=== PATIENT | female | born 1945 | race Caucasian/White ===

== ENCOUNTER 2020-09-03 10:40 | Day surgery (SDC) | payer MEDICARE, OTHER ==
[2020-08-30 09:37] VITALS: BMI 35.5
[~2020-09-03 10:40] MED LIST: LACTATED RINGERS 1,000 ML IV SCH; SODIUM CHLORIDE 0.9% 1,000 ML IV SCH
[2020-09-03 11:53] LABS: Calcium 9.5 mg/dL (8.4-10.2); Potassium 3.9 mmol/L (3.5-5.1)
[2020-09-03] MEDS ORDERED: PROPOFOL 10 MG/ML 20 ML VIAL IV ONE (12:11)
--- NOTE | 2020-09-03 12:49 | CE ---
CARDIAC ELECTROPHYSIOLOGY REPORT DATE OF SERVICE: September 03, 2020 PERFORMING PHYSICIAN: Sylvester Contreras MD. PROCEDURE PERFORMED: Successful cardioversion of atrial fibrillation. INDICATION: Atrial fibrillation. COMPLICATION: None. LEVEL OF SEDATION: The procedure was performed using propofol with VISITOR SERVICES ASSOCIATE and anesthesiologist in the room. PROCEDURE DESCRIPTION: After obtaining an informed consent, the patient was brought to the recovery room. We did cardioversion of atrial fibrillation to normal sinus mechanism using 300 joule on second attempt. No complication reported. CONCLUSION: Successful cardioversion of atrial fibrillation to normal sinus mechanism using a 300 joules on second attempt. MMODL / IJN: [id number] /
[2020-09-03 12:51] VITALS: RESP 16; TEMP 97
[2020-09-03] MEDS ORDERED: FUROSEMIDE 20 MG TAB PO STA (13:13)
[2020-09-03] MEDS ORDERED: FUROSEMIDE 10 MG/ML 4 ML VIAL ONE (13:31)
[2020-09-03 14:30] VITALS: BP 158/70; PULSE 81
== END 2020-09-03 14:52 | disposition home or self-care (01) ==
LOC: CATHCVL 10:40
PROVIDERS: ATTEND Internal Medicine Interventional Cardiology
DX: I48.19 Other persistent atrial fibrillation (principal); I12.9 Hypertensive chronic kidney disease with stage 1 through stage 4 chronic kidney disease, or unspecified chronic kidney disease; N18.9 Chronic kidney disease, unspecified; J44.9 Chronic obstructive pulmonary disease, unspecified; E78.5 Hyperlipidemia, unspecified; E03.9 Hypothyroidism, unspecified; E66.9 Obesity, unspecified; R53.82 Chronic fatigue, unspecified; E07.9 Disorder of thyroid, unspecified; M19.90 Unspecified osteoarthritis, unspecified site; Z68.39 Body mass index [BMI] 39.0-39.9, adult; Z79.890 Hormone replacement therapy; Z79.899 Other long term (current) drug therapy; Z79.01 Long term (current) use of anticoagulants; Z88.0 Allergy status to penicillin; Z82.49 Family history of ischemic heart disease and other diseases of the circulatory system; Z90.710 Acquired absence of both cervix and uterus
CPT/HCPCS: 92960; 80048; J2704

== ENCOUNTER → 2020-10-19 | Day surgery (SDC) | payer MEDICARE, OTHER ==
[2020-10-18 08:30] VITALS: BMI 35.7
[~2020-10-19] MED LIST changes: -LACTATED RINGERS 1,000 ML IV SCH; +PROPOFOL 10 MG/ML 20 ML VIAL IV ONE; +hydrALAZINE HCL 20 MG/ML 1 ML VIAL ONE
[2020-10-19 07:24] VITALS: TEMP 98.1
[2020-10-19 08:10] LABS: Calcium 9.7 mg/dL (8.4-10.2)
--- NOTE | 2020-10-19 08:33 | CE ---
CARDIAC ELECTROPHYSIOLOGY REPORT DATE OF SERVICE: October 19, 2020. PROCEDURE PERFORMED: Successful cardioversion of atrial fibrillation to normal sinus mechanism using 200 joules on first attempt. INDICATION: Atrial fibrillation. COMPLICATION: None. SEDATION: The procedure was performed with propofol under general anesthesia. PROCEDURE DESCRIPTION: After obtaining an informed consent, the patient was brought to the recovery room. The sedation was induced using propofol with NUTRITION WORKER and anesthesiologist in the room. Subsequently, the patient was cardioverted from atrial fibrillation to normal sinus mechanism using 200 joules on first attempt. CONCLUSION: Successful cardioversion of atrial fibrillation to normal sinus mechanism using 200 joules on first attempt. MMODL / IJN: [id number] /
[2020-10-19 10:06] VITALS: PULSE 80; RESP 18
[2020-10-19 10:07] VITALS: BP 116/57
== END ==
LOC: CATHCVL 06:15
PROVIDERS: ATTEND Internal Medicine Interventional Cardiology
DX: I48.19 Other persistent atrial fibrillation (principal); I12.9 Hypertensive chronic kidney disease with stage 1 through stage 4 chronic kidney disease, or unspecified chronic kidney disease; N18.9 Chronic kidney disease, unspecified; Z20.822 Contact with and (suspected) exposure to COVID-19; Z72.0 Tobacco use; J44.9 Chronic obstructive pulmonary disease, unspecified; E78.5 Hyperlipidemia, unspecified; Z88.0 Allergy status to penicillin; Z79.01 Long term (current) use of anticoagulants; Z79.890 Hormone replacement therapy; Z79.899 Other long term (current) drug therapy
CPT/HCPCS: 92960; 80048; 87635; J0360; J2704; 93005

== ENCOUNTER 2022-08-30 21:07 | Inpatient (IN) | payer MEDICARE, OTHER ==
[2022-08-30] MEDS ORDERED: SODIUM CHLORIDE 0.9% 1,000 ML IV STA ×3 (21:17→23:37)
--- NOTE | 2022-08-30 21:22 | ED ---
General Adult HPI - General Chief complaint: Fever Stated complaint: Difficulty Breathing Time Seen by Provider: 08/30/22 21:16 Source: EMS Mode of arrival: EMS Limitations: altered mental status - History of Present Illness Initial comments: Dictation was produced using Find[employer] dictation software. please excuse any grammatical, word or spelling errors. Chief Complaint: 77-year-old female brought in from [facility] for medication noncompliance History of Present Illness: She 77-year-old female she has multiple comorbidit ies. According to EMS provides history of present illness patient has not been compliant with her C. diff medications for the last 3 weeks. Decision was made by [facility] sent patient to the emergency department. Patient is a poor historian. EMS reports that patient was hypoxic. Patient states that she has pain all over. Patient was allegedly just discharged from the hospital recently for C. diff infection. Unable to obtain ROS secondary to patient's mental status PHYSICAL EXAM: General Impression: Alert and oriented, malaised HEENT: Normocephalic atraumatic, extra-ocular movements intact, pupils equal and reactive to light bilaterally, dry mucous membranes Cardiovascular: Heart regular rate and rhythm Chest: Able to complete full sentences, no retractions, no tachypnea Abdomen: abdomen soft, non-tender, non-distended, no organomegaly Musculoskeletal: Pulses present and equal in all extremities, no peripheral edema, lymphedema to bilateral lower extremities Motor: no focal deficits noted Neurological: CN II-XII grossly intact, no focal motor or sensory deficits noted Skin: Intact with no visualized rashes ED course: 77-year-old female presents emergency department for C. diff medication noncompliance. EMS states that patient was hypoxic prehospital vitals besides the oxygenation however was unremarkable. Patient was placed in trauma bay #1. She had poor waveform on her oxygenation levels with fingertip oximetry. We were able to get a good waveform with normal oxygenation. Blood pressure on arrival was 108/63. Patient does show evidence of atrial fi brillation rapid ventricular rate. She does appear to be dry at the bedside. Nursing notes and chart review was performed EKG interpreted by me: Ventricular rate 123, H fibrillation with RVR, QRS 190, QTC 411. No IN prolongation, no QTC prolongation, no ST or T-wave changes noted. EKG compared to 07/19/2022 showing no changes. Overall, this EKG is unremarkable Was pt. sent in by a medical professional or institution (LEONOR Lott, AIRCRAFT MACHINIST HELPER, urgent care, hospital, or intermediate...) When possible be specific @ -[facility] Did you speak to anyone other than the patient for history (EMS, parent, family, police, friend...)? What history was obtained from this source @ -No Did you review nursing and triage notes (agree or disagree)? Why? @ -I reviewed and agree with nursing and triage notes Were old charts reviewed (outside hosp., previous admission, EMS record, old EKG, old radiological studies, urgent care reports/EKG's, intermediate records)? Report findings @ -Prior discharge summary was reviewed. Prior echocardiogram was reviewed showing 40-45% ejection fraction Differential Diagnosis (chest pain, altered mental status, abdominal pain women, abdominal pain men, vaginal bleeding, musculoskeletal, weakness, fever, dyspnea, syncope, headache, dizziness, GI bleed, back pain, seizure, CVA, palpatations, mental health)? @ -not applicable EKG interpreted by me (3pts min.). @ -As above X-rays interpreted by me (1pt min.). @ -Left infiltrate CT interpreted by me (1pt min.). @ -None done U/S interpreted by me (1pt. min.). @ -None done What testing was considered but not performed or refused? (CT, X-rays, U/S, labs)? Why? @ -None What meds were considered but not given or refused? Why? @ -None Did you discuss the management of the patient with other professionals (professionals i.e. LEONOR Lott, AIRCRAFT MACHINIST HELPER, lab, RT, psych nurse, health social work professor, metallurgical engineering teacher, teacher, biological technical officer, nurse case manager)? Give summary @ -Case discussed with [facility] admission hospitalist group for admission Was smoking cessation discussed for >3mins.? @ -No Was critical care preformed (if so, how long)? @ -Yes, 77 minutes Were there social determinants of health that impacted care today? How? (Homelessness, low income, unemployed, alcoholism, drug addiction, transportation, low edu. Level, literacy, decrease access to med. care, custodial, rehab)? @ -No Was there de-escalation of care discussed even if they declined (Discuss DNR or withdrawal of care, Hospice)? DNR status @ -No What co-morbidities impacted this encounter? (DM, HTN, Smoking, COPD, CAD, Cancer, CVA, ARF, Chemo, Hep., AIDS, mental health diagnosis, sleep apnea, morbid obesity)? @ -None Was patient admitted / discharged? Hospital course, mention meds given and rout e, prescriptions, significant lab abnormalities, going to OR and other pertinent info. @ -77-year-old female presents with chief complaint of noncompliance with C. diff medications. Report from prehospital providers was that patient was hypoxic. Patient is not hypoxic. When patient's put on a good waveform her oxygenation. HEENT normal. Patient does not appear to be significantly dyspneic. BiPAP was placed for respiratory assistance. Her presentation concerning for obesity hypoventilation syndrome. Pressures are decreased however she did respond to fluids. Patient given 30 mL per KG bolus per ideal body weight. Laboratory evaluation obtained. Leukocytosis 6 and 0.0. Suspicious for sepsis. Arterial blood gases not support hypoxia. Metabolic panel is unremarkable. Urinalysis is negative. 4 panel viral PCR is negative. Patient monitored in the emergency department for several hours. Patient condition did not deteriorate. She did slightly improve. No clear indication for treatment of A. fib RVR at this time given that patient's heart rate seemed to normalize without any intervention down to the lower 90s-110s. Patient reevaluated bedside and blood pressures did not really improve. Plan was made to insert a central venous catheter. Started on pressors. Patient noted to have some runs of ventricular tachycardia. Case discussed with intensi vist is willing to take patient's care to the ICU. Undiagnosed new problem with uncertain prognosis? @ -No Drug Therapy requiring intensive monitoring for toxicity (Heparin, Nitro, Insulin, Cardizem)? @ -Cardizem. Were any procedures done? @ -yes Diagnosis/symptom? Acute, or Chronic, or Acute on Chronic? Uncomplicated (without systemic symptoms) or Complicated (systemic symptoms)? @ -1. Community acquired pneumonia, 2. Sepsis Side effects of treatment? @ -No Exacerbation, Progression, or Severe Exacerbation? @ -No Poses a threat to life or bodily function? How? (Chest pain, [place], [place], pneumonia, PE, COPD, DKA, ARF, appy, cholecystitis, CVA, Diverticulitis, Homicidal, Suicidal, threat to staff... and all critical care pts) @ -yes - Related Data Home Medications Medication Instructions Recorded Confirmed Acetaminophen [Tylenol Arthritis] 650 mg PO Q4H PRN 08/30/20 08/30/22 Apixaban [Eliquis] 5 mg PO BID@0900,2100 08/30/20 08/30/22 Ipratropium/Albuterol Sulfate 1 puff INHALATION RT-Q6H 08/30/20 08/30/22 [Combivent Respimat Inhaler] Multivitamins, Thera [Multivitamin 1 tab PO DAILY@0900 08/30/20 08/30/22 (formulary)] rOPINIRole HCL [Requip] 2 mg PO TID@0600,1400,2200 08/30/20 08/30/22 Baclofen 10 mg PO TID@0600,1400,2200 07/19/22 08/30/22 Calcium Carb-Vit D 500Mg-5Mcg 1 tab PO HS@209907/19/22 08/30/22 [Oscal 500+D 5 Mcg (200 Iu)] Cholestyramine (with Sugar) 4 gm PO HS@209907/19/22 08/30/22 [Questran Packet] Dapagliflozin Propanediol [Farxiga] 5 mg PO DAILY@0600 07/19/22 08/30/22 Diltiazem Cd [Cardizem CD] 240 mg PO DAILY@0900 07/19/22 08/30/22 Epoetin Arvin-Epbx [Retacrit] 10,000 units SQ MOWEFR 07/19/22 08/30/22 Ferrous Sulfate [Iron (65 MG 325 mg PO HS@209907/19/22 08/30/22 Elemental)] Fluticasone Propion/Salmeterol 1 puff INHALATION RT-BID@0600,1800 07/19/22 08/30/22 [Wixela 250-50 Inhub] Levothyroxine Sodium [Synthroid] 112 mcg PO DAILY@0600 07/19/22 08/30/22 Loperamide [Imodium] 2 mg PO Q6H PRN 07/19/22 08/30/22 Ondansetron [Zofran] 4 mg PO Q6H PRN 07/19/22 08/30/22 Potassium Chloride ER [K-Dur 10] 10 meq PO DAILY@0900 07/19/22 08/30/22 calcitrioL [Calcitriol] 0.25 mcg PO DAILY@0600 07/19/22 08/30/22 Glucerna Shake 1 can PO BID@0900,1700 08/30/22 08/30/22 Lactobacillus Acidophilus 1 cap PO BID@0600,2100 08/30/22 08/30/22 [Acidophilus] Levothyroxine Sodium [Synthroid] 50 mcg PO DAILY@0600 08/30/22 08/30/22 Metoprolol Tartrate [Lopressor] 25 mg PO TID@0600,1400,2200 08/30/22 08/30/22 Midodrine HCl [ProAmatine] 10 mg PO TID@0600,1400,2200 08/30/22 08/30/22 Previous Rx's Medication Instructions Recorded HYDROcodone/APAP 5-325MG [[place]lett 1 tab PO Q8H PRN 3 Days #4 tab 08/05/22 5-325] Ipratropium-Albuterol Nebulize 3 ml INHALATION RT-QID each 08/05/22 [Duoneb 0.5 mg-3 mg/3 ml Soln] Lidocaine Viscous 2% [Xylocaine 30 ml PO QID PRN ml 08/05/22 Viscous] Allergies Allergy/AdvReac Type Severity Reaction Status Date / Time Penicillins Allergy Rash/Hives Verified 08/30/22 21:32 Review of Systems ROS Statement: Those systems with pertinent positive or pertinent negative responses have been documented in the HPI. ROS Other: All systems not noted in ROS Statement are negative. Past Medical History Past Medical History: Atrial Fibrillation, COPD, Hypertension, Osteoarthritis (OA), Thyroid Disorder Additional Past Medical History / Comment(s): BLE EDEMA. SOB. RLS History of Any Multi-Drug Resistant Organisms: None Reported Past Surgical History: Appendectomy, Cholecystectomy, Heart Catheterization, Hysterectomy, Tonsillectomy Additional Past Surgical History / Comment(s): BILAT CATARACTS REMOVED WITH LENS IMPLANTS. COLONOSCOPY. THYROIDECTOMY. CARDIOVERSION-09/03/20 Past Anesthesia/Blood Transfusion Reactions: No Reported Reaction Past Psychological History: No Psychological Hx Reported Smoking Status: Former smoker Past Alcohol Use History: None Reported Past Drug Use History: None Reported - Past Family History Sister(s) Family Medical History: Cancer Additional Family Medical History / Comment(s): BLADDER General Exam Limitations: altered mental status Course Vital Signs 08/30/22 08/30/22 08/30/22 21:08 21:15 21:18 Temperature 100.5 F H Pulse Rate 70 Pulse Rate [ 70 Apical] Respiratory 22 Rate Blood Pressure 103/89 O2 Sat by Pulse 100 Oximetry Fraction of 35 Inspired Oxygen (FIO2) 08/30/22 08/30/22 08/30/22 21:21 21:54 22:46 Temperature 98.4 F Pulse Rate 140 H 120 H Pulse Rate [ Apical] Respiratory 18 16 Rate Blood Pressure 73/60 80/47 O2 Sat by Pulse 97 99 Oximetry Fraction of 35 Inspired Oxygen (FIO2) 08/30/22 08/30/22 08/31/22 23:00 23:33 00:45 Temperature Pulse Rate 120 H 120 H Pulse Rate [ Apical] Respiratory 18 16 Rate Blood Pressure 100/40 80/60 O2 Sat by Pulse 97 97 Oximetry Fraction of 35 Inspired Oxygen (FIO2) Procedures - Sepsis Sepsis Focused Exam #1 Time Sepsis Criteria Met: 23:38 Sepsis Focused Exam Date: 08/30/22 Sepsis Focused Exam Time: 23:38 Sepsis Focused Exam Complete: Yes Vital Signs & RN Notes Reviewed: Yes Capillary Refill: < 2 Seconds: Fingers, Toes Peripheral Pulses: Normal: Radial (R), Radial (L), Posterior Tibialis (R), Posterior Tibialis (L), Dorsalis Pedis (R), Dorsalis Pedis (L) Skin Color: Normal for Patient Respiratory Exam: normal lung sounds Cardiovascular Exam: regular rate, tachycardia Medical Decision Making - Lab Data Result diagrams: 08/30/22 21:18 08/30/22 21:17 Lab Results 08/30/22 08/30/22 08/30/22 Range/Units 21:17 21:18 21:18 WBC 16.0 H (3.8-10.6) k/uL RBC 5.01 (3.80-5.40) m/uL Hgb 15.5 D (11.4-16.0) gm/dL Hct 47.9 H (34.0-46.0) % MCV 95.5 (80.0-100.0) fL MCH 30.9 (25.0-35.0) pg MCHC 32.3 (31.0-37.0) g/dL RDW 15.6 H (11.5-15.5) % Plt Count 316 (150-450) k/uL MPV 8.4 Neutrophils % 91 % Lymphocytes % 6 % Monocytes % 2 % Eosinophils % 0 % Basophils % 1 % Neutrophils # 14.5 H (1.3-7.7) k/uL Lymphocytes # 1.0 (1.0-4.8) k/uL Monocytes # 0.3 (0-1.0) k/uL Eosinophils # 0.1 (0-0.7) k/uL Basophils # 0.1 (0-0.2) k/uL Hypochromasia Slight Poikilocytosis Slight PT 12.8 H (9.0-12.0) sec INR 1.3 H (<1.2) APTT 27.0 (22.0-30.0) sec Sample Site ABG pH (7.35-7.45) ABG pCO2 (35-45) mmHg ABG pO2 (83-108) mmHg ABG HCO3 (21-25) mmol/L ABG Total CO2 (19-24) mmol/L ABG O2 Saturation (94-97) % ABG Base Excess mmol/L Viany Test FiO2 % Sodium 135 L (137-145) mmol/L Potassium 3.8 (3.5-5.1) mmol/L Chloride 103 (98-107) mmol/L Carbon Dioxide 25 (22-30) mmol/L Anion Gap 7 mmol/L BUN 15 (7-17) mg/dL Creatinine 0.86 (0.52-1.04) mg/dL Est GFR (CKD-EPI)AfAm 77 (>60 ml/min/1.73 sqM) Est GFR (CKD-EPI)NonAf 67 (>60 ml/min/1.73 sqM) Glucose 75 (74-99) mg/dL Plasma Lactic Acid Denzel (0.7-2.0) mmol/L Calcium 7.6 L (8.4-10.2) mg/dL Ionized Calcium Tim 4.5 (4.5-5.3) mg/dL Magnesium 2.2 (1.6-2.3) mg/dL Total Bilirubin 1.0 (0.2-1.3) mg/dL AST 42 H (14-36) U/L ALT 22 (4-34) U/L Alkaline Phosphatase 228 H (38-126) U/L Troponin I (0.000-0.034) ng/mL Total Protein 5.6 L (6.3-8.2) g/dL Albumin 2.5 L (3.5-5.0) g/dL TSH 5.590 H (0.465-4.680) mIU/L Urine Color Urine Appearance (Clear) Urine pH (5.0-8.0) Ur Specific [place] (1.001-1.035) Urine Protein (Negative) Urine Glucose (UA) (Negative) Urine Ketones (Negative) Urine Blood (Negative) Urine Nitrite (Negative) Urine Bilirubin (Negative) Urine Urobilinogen (<2.0) mg/dL Ur Leukocyte Esterase (Negative) Urine RBC (0-5) /hpf Urine WBC (0-5) /hpf Urine Bacteria (None) /hpf Hyaline Casts (0-2) /lpf Urine Mucus (None) /hpf Influenza Type A (PCR) (Not Detectd) Influenza Type B (PCR) (Not Detectd) RSV (PCR) (Not Detectd) SARS-CoV-2 (PCR) (Not Detectd) Blood Type Blood Type Recheck Bld Type Recheck Status Antibody Screen Spec Expiration Date 08/30/22 08/30/22 08/30/22 Range/Units 21:18 21:18 21:18 WBC (3.8-10.6) k/uL RBC (3.80-5.40) m/uL Hgb (11.4-16.0) gm/dL Hct (34.0-46.0) % MCV (80.0-100.0) fL MCH (25.0-35.0) pg MCHC (31.0-37.0) g/dL RDW (11.5-15.5) % Plt Count (150-450) k/uL MPV Neutrophils % % Lymphocytes % % Monocytes % % Eosinophils % % Basophils % % Neutrophils # (1.3-7.7) k/uL Lymphocytes # (1.0-4.8) k/uL Monocytes # (0-1.0) k/uL Eosinophils # (0-0.7) k/uL Basophils # (0-0.2) k/uL Hypochromasia Poikilocytosis PT (9.0-12.0) sec INR (<1.2) APTT (22.0-30.0) sec Sample Site ABG pH (7.35-7.45) ABG pCO2 (35-45) mmHg ABG pO2 (83-108) mmHg ABG HCO3 (21-25) mmol/L ABG Total CO2 (19-24) mmol/L ABG O2 Saturation (94-97) % ABG Base Excess mmol/L Vinay Test FiO2 % Sodium (137-145) mmol/L Potassium (3.5-5.1) mmol/L Chloride (98-107) mmol/L Carbon Dioxide (22-30) mmol/L Anion Gap mmol/L BUN (7-17) mg/dL Creatinine (0.52-1.04) mg/dL Est GFR (CKD-EPI)AfAm (>60 ml/min/1.73 sqM) Est GFR (CKD-EPI)NonAf (>60 ml/min/1.73 sqM) Glucose (74-99) mg/dL Plasma Lactic Acid Denzel 1.8 (0.7-2.0) mmol/L Calcium (8.4-10.2) mg/dL Ionized Calcium Tim (4.5-5.3) mg/dL Magnesium (1.6-2.3) mg/dL Total Bilirubin (0.2-1.3) mg/dL AST (14-36) U/L ALT (4-34) U/L Alkaline Phosphatase (38-126) U/L Troponin I <0.012 (0.000-0.034) ng/mL Total Protein (6.3-8.2) g/dL Albumin (3.5-5.0) g/dL TSH (0.465-4.680) mIU/L Urine Color Urine Appearance (Clear) Urine pH (5.0-8.0) Ur Specific [place] (1.001-1.035) Urine Protein (Negative) Urine Glucose (UA) (Negative) Urine Ketones (Negative) Urine Blood (Negative) Urine Nitrite (Negative) Urine Bilirubin (Negative) Urine Urobilinogen (<2.0) mg/dL Ur Leukocyte Esterase (Negative) Urine RBC (0-5) /hpf Urine WBC (0-5) /hpf Urine Bacteria (None) /hpf Hyaline Casts (0-2) /lpf Urine Mucus (None) /hpf Influenza Type A (PCR) Not Detected (Not Detectd) Influenza Type B (PCR) Not Detected (Not Detectd) RSV (PCR) Not Detected (Not Detectd) SARS-CoV-2 (PCR) Not Detected (Not Detectd) Blood Type Blood Type Recheck Bld Type Recheck Status Antibody Screen Spec Expiration Date 08/30/22 08/30/22 08/30/22 Range/Units 21:18 21:18 22:05 WBC (3.8-10.6) k/uL RBC (3.80-5.40) m/uL Hgb (11.4-16.0) gm/dL Hct (34.0-46.0) % MCV (80.0-100.0) fL MCH (25.0-35.0) pg MCHC (31.0-37.0) g/dL RDW (11.5-15.5) % Plt Count (150-450) k/uL MPV Neutrophils % % Lymphocytes % % Monocytes % % Eosinophils % % Basophils % % Neutrophils # (1.3-7.7) k/uL Lymphocytes # (1.0-4.8) k/uL Monocytes # (0-1.0) k/uL Eosinophils # (0-0.7) k/uL Basophils # (0-0.2) k/uL Hypochromasia Poikilocytosis PT (9.0-12.0) sec INR (<1.2) APTT (22.0-30.0) sec Sample Site [place] ABG pH 7.49 H (7.35-7.45) ABG pCO2 29 L (35-45) mmHg ABG pO2 119 H (83-108) mmHg ABG HCO3 22 (21-25) mmol/L ABG Total CO2 23 (19-24) mmol/L ABG O2 Saturation 99.3 H (94-97) % ABG Base Excess -1.0 mmol/L Vinay Test Yes FiO2 35 % Sodium (137-145) mmol/L Potassium (3.5-5.1) mmol/L Chloride (98-107) mmol/L Carbon Dioxide (22-30) mmol/L Anion Gap mmol/L BUN (7-17) mg/dL Creatinine (0.52-1.04) mg/dL Est GFR (CKD-EPI)AfAm (>60 ml/min/1.73 sqM) Est GFR (CKD-EPI)NonAf (>60 ml/min/1.73 sqM) Glucose (74-99) mg/dL Plasma Lactic Acid Denzel (0.7-2.0) mmol/L Calcium (8.4-10.2) mg/dL Ionized Calcium Tim (4.5-5.3) mg/dL Magnesium (1.6-2.3) mg/dL Total Bilirubin (0.2-1.3) mg/dL AST (14-36) U/L ALT (4-34) U/L Alkaline Phosphatase (38-126) U/L Troponin I (0.000-0.034) ng/mL Total Protein (6.3-8.2) g/dL Albumin (3.5-5.0) g/dL TSH (0.465-4.680) mIU/L Urine Color Yellow Urine Appearance Clear (Clear) Urine pH 5.5 (5.0-8.0) Ur Specific [place] 1.019 (1.001-1.035) Urine Protein 1+ H (Negative) Urine Glucose (UA) 1+ H (Negative) Urine Ketones Negative (Negative) Urine Blood Trace H (Negative) Urine Nitrite Negative (Negative) Urine Bilirubin Negative (Negative) Urine Urobilinogen <2.0 (<2.0) mg/dL Ur Leukocyte Esterase Negative (Negative) Urine RBC 4 (0-5) /hpf Urine WBC <1 (0-5) /hpf Urine Bacteria Rare H (None) /hpf Hyaline Casts 3 H (0-2) /lpf Urine Mucus Rare H (None) /hpf Influenza Type A (PCR) (Not Detectd) Influenza Type B (PCR) (Not Detectd) RSV (PCR) (Not Detectd) SARS-CoV-2 (PCR) (Not Detectd) Blood Type A Positive Blood Type Recheck No Previous Record Bld Type Recheck Status CABO Indicated Antibody Screen NEGATIVE Spec Expiration Date 09/02/20222317 Disposition Clinical Impression: Sepsis Disposition: ADMITTED IP TO THIS HOSP Condition: Critical Referrals: Carlos Lobato MD [Primary Care Provider] - 1-2 days Decision Time: 00:26
[2022-08-30] MEDS ORDERED: ACETAMINOPHEN IV (For NPO) 1,000 MG in EMPTY BAG 1 BAG IVPB ONE (21:45)
--- NOTE | 2022-08-30 21:59 | XR ---
EXAMINATION TYPE: XR chest 1V portable DATE OF EXAM: 08/30/2022 COMPARISON: 08/01/2022 HISTORY: Short of breath TECHNIQUE: FINDINGS: There is some blunting of the left costophrenic angle. Right lung is clear. No heart failur e. Heart appears slightly enlarged. There is increased density left lower lobe. IMPRESSION: There is left pleural effusion and left lower lobe infiltrate which is increased compared to old exam. No heart failure
[2022-08-30 22:13] LABS: Allen Test Performed? Yes
[2022-08-30] MEDS ORDERED: CEFEPIME 2 GM in SODIUM CHLORIDE 0.9% 100 ML IVPB STA (22:13)
[2022-08-30] MEDS ORDERED: VANCOMYCIN IV PER PHARMACY 1 EACH MISC MISCELLANE PRN (22:14)
[2022-08-30] MEDS ORDERED: CEFEPIME 2 GM in SODIUM CHLORIDE 0.9% 100 ML IVPB ONE (22:20)
[2022-08-30 22:22] LABS: ABG HCO3 22 mmol/L (21-25); ABG Oxygen Saturation 99.3 % (94-97); ABG PCO2 29 mmHg (35-45); ABG PH 7.49 (7.35-7.45); ABG PO2 119 mmHg (83-108); ABG TCO2 23 mmol/L (19-24)
[2022-08-30 22:42] LABS: Appearance,Urine Clear (Clear); Bacteria,Urine Rare /hpf; Bilirubin,Urine Negative (Negative); Blood,Urine Trace (Negative); Color,Urine Yellow; Glucose,Urine (UA) 1+ (Negative); Hyaline Casts,Urine 3 /lpf (0-2); Ketones,Urine Negative (Negative); Leukocyte Esterase,Urine Negative (Negative); Mucus,Urine Rare /hpf; Nitrite,Urine Negative (Negative); PH, Urine 5.5 (5.0-8.0); Protein,Urine 1+ (Negative); RBC,Urine 4 /hpf (0-5); Specific Gravity,Urine 1.019 (1.001-1.035); Urobilinogen,Urine <2.0 mg/dL (<2.0); WBC,Urine <1 /hpf (0-5)
[2022-08-30 22:43] LABS: INR 1.3 (<1.2); Prothrombin Time 12.8 sec (9.0-12.0)
[2022-08-30 22:43] LABS: Albumin 2.5 g/dL (3.5-5.0); Calcium 7.6 mg/dL (8.4-10.2); Magnesium 2.2 mg/dL (1.6-2.3); Potassium 3.8 mmol/L (3.5-5.1); Total Protein 5.6 g/dL (6.3-8.2)
[2022-08-30 23:11] LABS: Ionized Calcium 4.5 mg/dL (4.5-5.3)
[2022-08-30 23:12] LABS: Basophils # (A) 0.1 k/uL (0-0.2); Basophils % (A) 1 %; Eosinophils # (A) 0.1 k/uL (0-0.7); Eosinophils % (A) 0 %; HCT 47.9 % (34.0-46.0); HGB 15.5 gm/dL (11.4-16.0); Hypochromasia Slight; Lymphocytes % (A) 6 %; MCH 30.9 pg (25.0-35.0); MCHC 32.3 g/dL (31.0-37.0); MCV 95.5 fL (80.0-100.0); Mean Platelet Volume 8.4; Monocytes # (A) 0.3 k/uL (0-1.0); Monocytes % (A) 2 %; Neutrophils # (A) 14.5 k/uL (1.3-7.7); Neutrophils % (A) 91 %; Platelet Count 316 k/uL (150-450); Poikilocytosis Slight; RBC 5.01 m/uL (3.80-5.40); RDW 15.6 % (11.5-15.5)
[2022-08-30] MEDS ORDERED: DILTIAZEM 125 MG in SODIUM CHLORIDE 0.9% 100 ML IV SCH (23:45)
[2022-08-31] MEDS ORDERED: VANCOMYCIN 2,000 MG in SODIUM CHLORIDE 0.9% 500 ML 500 ML IVPB ONE ×2
[2022-08-31] MEDS ORDERED: CALCIUM GLUCONATE IN NACL 1 GM in SALINE 1 100ML.BAG IVPB ONE (00:04)
[2022-08-31] MEDS ORDERED: NOREPINEPHRINE 32 MG in SODIUM CHLORIDE 0.9% 218 ML IV ONE (00:48)
[2022-08-31] MEDS ORDERED: NALOXONE 0.4 MG/ML 1 ML VIAL IV PRN (00:52)
[2022-08-31] MEDS ORDERED: DEXTROSE 5% IN WATER 100 ML with AMIODARONE 150 MG IV ONE (01:00)
--- NOTE | 2022-08-31 01:00 | XR ---
EXAMINATION TYPE: XR chest 1V portable DATE OF EXAM: 08/31/2022 COMPARISON: 08/30/2022 HISTORY: Central line placement TECHNIQUE: FINDINGS: There is right subclavian catheter with tip in the right atrium. There is infiltrate and pl eural fluid left lung base. No obvious heart failure. Thoracic aorta is atheromatous. Heart is slight ly enlarged. IMPRESSION: Catheter is in the right atrium. There is pleural fluid and infiltrate in the left lower lobe without much change.
--- NOTE | 2022-08-31 01:01 | ED ---
Medical Decision Making - Lab Data Result diagrams: 08/30/22 21:18 08/30/22 21:17 Lab Results 08/30/22 08/30/22 08/30/22 Range/Units 21:17 21:18 21:18 WBC 16.0 H (3.8-10.6) k/uL RBC 5.01 (3.80-5.40) m/uL Hgb 15.5 D (11.4-16.0) gm/dL Hct 47.9 H (34.0-46.0) % MCV 95.5 (80.0-100.0) fL MCH 30.9 (25.0-35.0) pg MCHC 32.3 (31.0-37.0) g/dL RDW 15.6 H (11.5-15.5) % Plt Count 316 (150-450) k/uL MPV 8.4 Neutrophils % 91 % Lymphocytes % 6 % Monocytes % 2 % Eosinophils % 0 % Basophils % 1 % Neutrophils # 14.5 H (1.3-7.7) k/uL Lymphocytes # 1.0 (1.0-4.8) k/uL Monocytes # 0.3 (0-1.0) k/uL Eosinophils # 0.1 (0-0.7) k/uL Basophils # 0.1 (0-0.2) k/uL Hypochromasia Slight Poikilocytosis Slight PT 12.8 H (9.0-12.0) sec INR 1.3 H (<1.2) APTT 27.0 (22.0-30.0) sec Sample Site ABG pH (7.35-7.45) ABG pCO2 (35-45) mmHg ABG pO2 (83-108) mmHg ABG HCO3 (21-25) mmol/L ABG Total CO2 (19-24) mmol/L ABG O2 Saturation (94-97) % ABG Base Excess mmol/L Vinay Test FiO2 % Sodium 135 L (137-145) mmol/L Potassium 3.8 (3.5-5.1) mmol/L Chloride 103 (98-107) mmol/L Carbon Dioxide 25 (22-30) mmol/L Anion Gap 7 mmol/L BUN 15 (7-17) mg/dL Creatinine 0.86 (0.52-1.04) mg/dL Est GFR (CKD-EPI)AfAm 77 (>60 ml/min/1.73 sqM) Est GFR (CKD-EPI)NonAf 67 (>60 ml/min/1.73 sqM) Glucose 75 (74-99) mg/dL Plasma Lactic Acid Denzel (0.7-2.0) mmol/L Calcium 7.6 L (8.4-10.2) mg/dL Ionized Calcium Tim 4.5 (4.5-5.3) mg/dL Magnesium 2.2 (1.6-2.3) mg/dL Total Bilirubin 1.0 (0.2-1.3) mg/dL AST 42 H (14-36) U/L ALT 22 (4-34) U/L Alkaline Phosphatase 228 H (38-126) U/L Troponin I (0.000-0.034) ng/mL Total Protein 5.6 L (6.3-8.2) g/dL Albumin 2.5 L (3.5-5.0) g/dL TSH 5.590 H (0.465-4.680) mIU/L Urine Color Urine Appearance (Clear) Urine pH (5.0-8.0) Ur Specific [place] (1.001-1.035) Urine Protein (Negative) Urine Glucose (UA) (Negative) Urine Ketones (Negative) Urine Blood (Negative) Urine Nitrite (Negative) Urine Bilirubin (Negative) Urine Urobilinogen (<2.0) mg/dL Ur Leukocyte Esterase (Negative) Urine RBC (0-5) /hpf Urine WBC (0-5) /hpf Urine Bacteria (None) /hpf Hyaline Casts (0-2) /lpf Urine Mucus (None) /hpf Influenza Type A (PCR) (Not Detectd) Influenza Type B (PCR) (Not Detectd) RSV (PCR) (Not Detectd) SARS-CoV-2 (PCR) (Not Detectd) Blood Type Blood Type Recheck Bld Type Recheck Status Antibody Screen Spec Expiration Date 08/30/22 08/30/22 08/30/22 Range/Units 21:18 21:18 21:18 WBC (3.8-10.6) k/uL RBC (3.80-5.40) m/uL Hgb (11.4-16.0) gm/dL Hct (34.0-46.0) % MCV (80.0-100.0) fL MCH (25.0-35.0) pg MCHC (31.0-37.0) g/dL RDW (11.5-15.5) % Plt Count (150-450) k/uL MPV Neutrophils % % Lymphocytes % % Monocytes % % Eosinophils % % Basophils % % Neutrophils # (1.3-7.7) k/uL Lymphocytes # (1.0-4.8) k/uL Monocytes # (0-1.0) k/uL Eosinophils # (0-0.7) k/uL Basophils # (0-0.2) k/uL Hypochromasia Poikilocytosis PT (9.0-12.0) sec INR (<1.2) APTT (22.0-30.0) sec Sample Site ABG pH (7.35-7.45) ABG pCO2 (35-45) mmHg ABG pO2 (83-108) mmHg ABG HCO3 (21-25) mmol/L ABG Total CO2 (19-24) mmol/L ABG O2 Saturation (94-97) % ABG Base Excess mmol/L Vinay Test FiO2 % Sodium (137-145) mmol/L Potassium (3.5-5.1) mmol/L Chloride (98-107) mmol/L Carbon Dioxide (22-30) mmol/L Anion Gap mmol/L BUN (7-17) mg/dL Creatinine (0.52-1.04) mg/dL Est GFR (CKD-EPI)AfAm (>60 ml/min/1.73 sqM) Est GFR (CKD-EPI)NonAf (>60 ml/min/1.73 sqM) Glucose (74-99) mg/dL Plasma Lactic Acid Denzel 1.8 (0.7-2.0) mmol/L Calcium (8.4-10.2) mg/dL Ionized Calcium Tim (4.5-5.3) mg/dL Magnesium (1.6-2.3) mg/dL Total Bilirubin (0.2-1.3) mg/dL AST (14-36) U/L ALT (4-34) U/L Alkaline Phosphatase (38-126) U/L Troponin I <0.012 (0.000-0.034) ng/mL Total Protein (6.3-8.2) g/dL Albumin (3.5-5.0) g/dL TSH (0.465-4.680) mIU/L Urine Color Urine Appearance (Clear) Urine pH (5.0-8.0) Ur Specific [place] (1.001-1.035) Urine Protein (Negative) Urine Glucose (UA) (Negative) Urine Ketones (Negative) Urine Blood (Negative) Urine Nitrite (Negative) Urine Bilirubin (Negative) Urine Urobilinogen (<2.0) mg/dL Ur Leukocyte Esterase (Negative) Urine RBC (0-5) /hpf Urine WBC (0-5) /hpf Urine Bacteria (None) /hpf Hyaline Casts (0-2) /lpf Urine Mucus (None) /hpf Influenza Type A (PCR) Not Detected (Not Detectd) Influenza Type B (PCR) Not Detected (Not Detectd) RSV (PCR) Not Detected (Not Detectd) SARS-CoV-2 (PCR) Not Detected (Not Detectd) Blood Type Blood Type Recheck Bld Type Recheck Status Antibody Screen Spec Expiration Date 08/30/22 08/30/22 08/30/22 Range/Units 21:18 21:18 22:05 WBC (3.8-10.6) k/uL RBC (3.80-5.40) m/uL Hgb (11.4-16.0) gm/dL Hct (34.0-46.0) % MCV (80.0-100.0) fL MCH (25.0-35.0) pg MCHC (31.0-37.0) g/dL RDW (11.5-15.5) % Plt Count (150-450) k/uL MPV Neutrophils % % Lymphocytes % % Monocytes % % Eosinophils % % Basophils % % Neutrophils # (1.3-7.7) k/uL Lymphocytes # (1.0-4.8) k/uL Monocytes # (0-1.0) k/uL Eosinophils # (0-0.7) k/uL Basophils # (0-0.2) k/uL Hypochromasia Poikilocytosis PT (9.0-12.0) sec INR (<1.2) APTT (22.0-30.0) sec Sample Site [place] ABG pH 7.49 H (7.35-7.45) ABG pCO2 29 L (35-45) mmHg ABG pO2 119 H (83-108) mmHg ABG HCO3 22 (21-25) mmol/L ABG Total CO2 23 (19-24) mmol/L ABG O2 Saturation 99.3 H (94-97) % ABG Base Excess -1.0 mmol/L Vinay Test Yes FiO2 35 % Sodium (137-145) mmol/L Potassium (3.5-5.1) mmol/L Chloride (98-107) mmol/L Carbon Dioxide (22-30) mmol/L Anion Gap mmol/L BUN (7-17) mg/dL Creatinine (0.52-1.04) mg/dL Est GFR (CKD-EPI)AfAm (>60 ml/min/1.73 sqM) Est GFR (CKD-EPI)NonAf (>60 ml/min/1.73 sqM) Glucose (74-99) mg/dL Plasma Lactic Acid Denzel (0.7-2.0) mmol/L Calcium (8.4-10.2) mg/dL Ionized Calcium Tim (4.5-5.3) mg/dL Magnesium (1.6-2.3) mg/dL Total Bilirubin (0.2-1.3) mg/dL AST (14-36) U/L ALT (4-34) U/L Alkaline Phosphatase (38-126) U/L Troponin I (0.000-0.034) ng/mL Total Protein (6.3-8.2) g/dL Albumin (3.5-5.0) g/dL TSH (0.465-4.680) mIU/L Urine Color Yellow Urine Appearance Clear (Clear) Urine pH 5.5 (5.0-8.0) Ur Specific [place] 1.019 (1.001-1.035) Urine Protein 1+ H (Negative) Urine Glucose (UA) 1+ H (Negative) Urine Ketones Negative (Negative) Urine Blood Trace H (Negative) Urine Nitrite Negative (Negative) Urine Bilirubin Negative (Negative) Urine Urobilinogen <2.0 (<2.0) mg/dL Ur Leukocyte Esterase Negative (Negative) Urine RBC 4 (0-5) /hpf Urine WBC <1 (0-5) /hpf Urine Bacteria Rare H (None) /hpf Hyaline Casts 3 H (0-2) /lpf Urine Mucus Rare H (None) /hpf Influenza Type A (PCR) (Not Detectd) Influenza Type B (PCR) (Not Detectd) RSV (PCR) (Not Detectd) SARS-CoV-2 (PCR) (Not Detectd) Blood Type A Positive Blood Type Recheck No Previous Record Bld Type Recheck Status CABO Indicated Antibody Screen NEGATIVE Spec Expiration Date 09/02/20222317 Disposition Clinical Impression: Sepsis Disposition: ADMITTED IP TO THIS HOSP Condition: Critical Referrals: Carlos Lobato MD [Primary Care Provider] - 1-2 days Procedures - Central Line Placement Right SC Consent Obtained: verbal consent, emergent situation Prep: mask, gown Central Line Prep: Chlorhexidine scrub Local Anesthesia Used: Lidocaine 1%, Lidocaine 2% Ultrasound Used for Placement: Yes Central Line Lumen Inserted: triple Bloods Obtained for Lab: No Central Line Position: good blood return, all ports aspirated, flushed, capped, sutured in place with 3-0 nylon Dressing Applied: Tegaderm Post Procedure X-Ray: tip of catheter in good position Patient Tolerated Procedure: well Complications: none - Sepsis Sepsis Focused Exam #1 Time Sepsis Criteria Met: 23:38
[2022-08-31] MEDS ORDERED: AMIODARONE 360 MG in DEXTROSE 5% IN WATER 200 ML IV ONE ×2 (01:10)
[2022-08-31] MEDS: AMIODARONE 450 MG in DEXTROSE 5% IN WATER 250 ML IV SCH ×2 (07:07)
[2022-08-31] MEDS ORDERED: VANCOMYCIN ORAL SOLUTION 250 MG/5 ML BOTTLE PO SCH (09:00)
[2022-08-31] MEDS ORDERED: SODIUM CHLORIDE 0.9% 1,000 ML IV ONE ×2 (09:04→12:11)
--- NOTE | 2022-08-31 09:16 | US ---
EXAMINATION TYPE: US chest DATE OF EXAM: 08/31/2022 COMPARISON: Radiograph same day CLINICAL HISTORY: 77-year-old female Markings for thoracentesis by pulmonary staff. TECHNIQUE: Targeted ultrasound of the posterior lower left hemithorax Findings: EXAM MEASUREMENTS: Left Pleural Effusion pocket size: 2.8 cm Left side NOT marked for possible thoracentesis outside the dept. Pulmonologists are able to review the images in the patient?s EMR. IMPRESSIONS: Small left pleural effusion with some adjacent atelectatic lung. Not enough for safe thoracentesis at this time.
[2022-08-31 09:41] LABS: Calcium 7.3 mg/dL (8.4-10.2); Potassium 2.9 mmol/L (3.5-5.1)
[2022-08-31] MEDS: CEFEPIME 2 GM in SODIUM CHLORIDE 0.9% 100 ML IVPB SCH ×2 (09:42→21:26)
[2022-08-31 09:49] LABS: Basophils # (A) 0.2 k/uL (0-0.2); Basophils % (A) 1 %; Eosinophils # (A) 0.1 k/uL (0-0.7); Eosinophils % (A) 0 %; HCT 43.9 % (34.0-46.0); Hypochromasia Slight; Lymphocytes # (A) 0.6 k/uL (1.0-4.8); Lymphocytes % (A) 2 %; MCH 30.8 pg (25.0-35.0); MCHC 31.8 g/dL (31.0-37.0); MCV 96.6 fL (80.0-100.0); Mean Platelet Volume 7.9; Monocytes % (A) 3 %; Neutrophils # (A) 29.2 k/uL (1.3-7.7); Neutrophils % (A) 94 %; Platelet Count 305 k/uL (150-450); Poikilocytosis Slight; RBC 4.55 m/uL (3.80-5.40); RDW 15.4 % (11.5-15.5)
[2022-08-31 09:50] LABS: WBC 31.1 k/uL (3.8-10.6)
[2022-08-31] MEDS: NYSTATIN 100,000 UNIT/ML SUSP 500,000 UNIT/5 ML CUP PO SCH ×4 (09:56→21:38)
--- NOTE | 2022-08-31 10:01 | P.CRDCN ---
History of Present Illness History of present illness: History of present illness: This is a 77-year-old female patient of Dr. 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 We have been asked to see the patient for A. fib with RVR. Patient unfortunately has been hospitalized and in rehab over the last 2 months. She has had significant weight loss and mainly been dealing with C. diff colitis and has been on oral vancomycin. Additionally she has been at [facility] as well as hospitalization one month ago at [facility]. She presented with hypotension and mental status changes a month ago here as well as A. fib with RVR. She presented this hospitalization with altered mental status and decreased blood pressure with tachycardia. She was found to be in A. fib with heart rates 120s and 140s. She was placed on amiodarone drip with minimal improvement heart rates in the 110s to 120s. Additionally she was given IV fluid bolus and IV fluids were started. She has been mildly hypotensive and placed on norepinephrine. Centralline was placed with CVP this morning at 7. She admits to decreased oral intake and decreased appetite. She admits her mouth feels like cotton and she has been using the swish and swallow with some improvement at rehab. She does not do much walking. She has chronic lower extremity edema currently mild. She has dry mucous membranes. She states she still has diarrhea however per nursing somewhat formed stools with stools being sent for C. diff. Additionally she was placed on broad spectrum antibiotics for septic shock. Blood work shows white blood cell count 16, 31, hemoglobin 15, sodium 135, creatinine 0.8, AST 42, ALT 22, alk phos 228, troponin 0.012, albumin 2.5. EKG shows atrial fibrillation with RVR with left axis deviation and poor R-wave progression nonspecific minimal ST depressions. Review Of Systems: At the time of my evaluation: Constitutional: No fever, no chills. No weakness, fatigue or lethargy. EENT: No headache. No dizziness. +decreased appetite Lungs: No shortness of breath, cough, no sputum production. No wheezing. Cardiovascular: No chest pain, mild lower extremity edema improved from baseline. No palpitations. No paroxysmal nocturnal dyspnea. No orthopnea. No lightheadedness or dizziness. No syncopal episodes. Abdominal: No abdominal pain. No nausea, vomiting. Reports diarrhea. No constipation. No bloody or tarry stools. Genitourinary: No dysuria.. No urinary retention. Musculoskeletal: No myalgias. No muscle weakness, No back pain. No neck pain. Integumentary: No wounds. No rash. No unusual bruising. Neurologic: No aphasia. No facial droop. +change in mentation. No head injury. No headache. Psychiatric: No depression. No anxiety. Endocrine: No abnormal blood sugars. Physical examination: Gen: This is an obese 77-year-old female. She is resting in bed and appears to be comfortable. No acute distress noted, chronically ill appearing VS: reviewed HEENT: Head is atraumatic, normocephalic. Pupils equal, round. Sclerae is a nicteric. Dry mucous membranes NECK: Supple. No JVD. LUNGS: Decreased breath sounds. No intercostal retractions. No crackles HEART: Irregular rate and rhythm. No murmur. ABDOMEN: Soft. No masses. No tenderness. EXTREMITIES: trace bilateral pedal edema. Mild erythema to the lower extremities. No calf tenderness. NEUROLOGICAL: Patient is awake, and somnolent. Cranial nerves 2 through 12 are grossly intact. Assessment: Persistent atrial fibrillation with RVR Shock likely component of dehydration as well as septic shock Recent C. difficile colitis Acute kidney injury with chronic kidney disease COPD Hypertension Hyperlipidemia Subaortic membrane being monitored History of GI bleed Plan: Patient normally on home Cardizem 240 mg as well as Lopressor 25 3 times a day. Majority of presentation appears related to dehydration and septic shock. Continue with IV fluids and monitor response. Change amiodarone drip to Cardizem drip, started 5 with a 5 mg bolus and increase as able. Patient will likely require increase of vasopressors. No need to repeat echo. Unlikely patient will stay in sinus and hold on any rhythm control for now. Appears dry on exam and continue with IV fluids. Continue with anticoagulation. Further recommendations to follow. Past Medical History Past Medical History: Atrial Fibrillation, COPD, Hypertension, Osteoarthritis (OA), Thyroid Disorder Additional Past Medical History / Comment(s): BLE EDEMA. SOB. RLS History of Any Multi-Drug Resistant Organisms: None Reported Past Surgical History: Appendectomy, Cholecystectomy, Heart Catheterization, Hysterectomy, Tonsillectomy Additional Past Surgical History / Comment(s): BILAT CATARACTS REMOVED WITH LENS IMPLANTS. COLONOSCOPY. THYROIDECTOMY. CARDIOVERSION-09/03/20 Past Anesthesia/Blood Transfusion Reactions: No Reported Reaction Past Psychological History: No Psychological Hx Reported Smoking Status: Former smoker Past Alcohol Use History: None Reported Additional Past Alcohol Use History / Comment(s): QUIT SMOKING 2015 Past Drug Use History: None Reported - Past Family History Sister(s) Family Medical History: Cancer Additional Family Medical History / Comment(s): BLADDER Medications and Allergies Home Medications Medication Instructions Recorded Confirmed Type Acetaminophen [Tylenol Arthritis] 650 mg PO Q4H PRN 08/30/20 08/30/22 History Apixaban [Eliquis] 5 mg PO BID@0900,209908/30/20 08/30/22 History Ipratropium/Albuterol Sulfate 1 puff INHALATION RT-Q6H 08/30/20 08/30/22 History [Combivent Respimat Inhaler] Multivitamins, Thera [Multivitamin 1 tab PO DAILY@0900 08/30/20 08/30/22 History (formulary)] rOPINIRole HCL [Requip] 2 mg PO TID@0600,1400,2200 08/30/20 08/30/22 History Baclofen 10 mg PO TID@0600,1400,2200 07/19/22 08/30/22 History Calcium Carb-Vit D 500Mg-5Mcg 1 tab PO HS@209907/19/22 08/30/22 History [Oscal 500+D 5 Mcg (200 Iu)] Cholestyramine (with Sugar) 4 gm PO HS@209907/19/22 08/30/22 History [Questran Packet] Dapagliflozin Propanediol [Farxiga] 5 mg PO DAILY@0600 07/19/22 08/30/22 History Diltiazem Cd [Cardizem CD] 240 mg PO DAILY@0900 07/19/22 08/30/22 History Epoetin Arvin-Epbx [Retacrit] 10,000 units SQ MOWEFR 07/19/22 08/30/22 History Ferrous Sulfate [Iron (65 MG 325 mg PO HS@209907/19/22 08/30/22 History Elemental)] Fluticasone Propion/Salmeterol 1 puff INHALATION RT-BID@0600,1800 07/19/22 08/30/22 History [[place]ela 250-50 Inhub] Levothyroxine Sodium [Synthroid] 112 mcg PO DAILY@0600 07/19/22 08/30/22 History Loperamide [Imodium] 2 mg PO Q6H PRN 07/19/22 08/30/22 History Ondansetron [Zofran] 4 mg PO Q6H PRN 07/19/22 08/30/22 History Potassium Chloride ER [K-Dur 10] 10 meq PO DAILY@0900 07/19/22 08/30/22 History calcitrioL [Calcitriol] 0.25 mcg PO DAILY@0600 07/19/22 08/30/22 History HYDROcodone/APAP 5-325MG [[place] 1 tab PO Q8H PRN 3 Days #4 tab 08/05/22 08/30/22 Rx 5-325] Ipratropium-Albuterol Nebulize 3 ml INHALATION RT-QID each 08/05/22 08/30/22 Rx [Duoneb 0.5 mg-3 mg/3 ml Soln] Lidocaine Viscous 2% [Xylocaine 30 ml PO QID PRN ml 08/05/22 08/30/22 Rx Viscous] Glucerna Shake 1 can PO BID@0900,1700 08/30/22 08/30/22 History Lactobacillus Acidophilus 1 cap PO BID@0600,2100 08/30/22 08/30/22 History [Acidophilus] Levothyroxine Sodium [Synthroid] 50 mcg PO DAILY@0600 08/30/22 08/30/22 History Metoprolol Tartrate [Lopressor] 25 mg PO TID@0600,1400,2200 08/30/22 08/30/22 History Midodrine HCl [ProAmatine] 10 mg PO TID@0600,1400,2200 08/30/22 08/30/22 History Allergies Allergy/AdvReac Type Severity Reaction Status Date / Time Penicillins Allergy Rash/Hives Verified 08/30/22 21:32 Physical Exam Vitals: Vital Signs Temp Pulse Pulse Resp BP BP Pulse Ox 08/31/22 08:00 130 H 15 100/77 96 08/31/22 07:00 89 16 107/45 96 08/31/22 06:00 111 H 11 L 96/80 89 L 08/31/22 05:00 116 H 12 101/85 96 08/31/22 04:00 124 H 14 82/72 08/31/22 03:00 118 H 16 76/54 98 08/31/22 02:17 0 L 17 08/31/22 01:37 08/31/22 01:24 108 H 18 83/48 95 08/31/22 01:05 97.5 F L 12 93/66 08/31/22 00:45 120 H 16 80/60 97 08/30/22 23:33 120 H 18 100/40 97 08/30/22 23:00 08/30/22 22:46 98.4 F 120 H 16 80/47 99 08/30/22 21:54 140 H 18 73/60 97 08/30/22 21:21 08/30/22 21:18 08/30/22 21:15 70 08/30/22 21:08 100.5 F H 70 22 103/89 100 FiO2 08/31/22 08:00 08/31/22 07:00 08/31/22 06:00 08/31/22 05:00 08/31/22 04:00 08/31/22 03:00 08/31/22 02:17 08/31/22 01:37 35 08/31/22 01:24 08/31/22 01:05 08/31/22 00:45 08/30/22 23:33 08/30/22 23:00 35 08/30/22 22:46 08/30/22 21:54 08/30/22 21:21 35 08/30/22 21:18 35 08/30/22 21:15 08/30/22 21:08 Intake and Output 08/30/22 08/31/22 08/31/22 22:59 06:59 14:59 Intake Total 236.232 3452.518 Output Total 90 45 Balance 816.278 3009.518 Intake: IV 260 Sodium Chloride 0.9% 1, 260 000 ml @ 130 mls/hr IV . Q7H42M STA Rx#:[id number] Intake, IV Titration 707.211 8739.518 Amount Norepinephrine 32 mg In 10.020 10.518 Sodium Chloride 0.9% 218 ml @ 0.03 MCG/KG/MIN 1. 301 mls/hr IV .Q24H ONE Rx#:[id number] Sodium Chloride 0.9% 1, 260 000 ml @ 130 mls/hr IV . Q7H42M STA Rx#:[id number] Sodium Chloride 0.9% 1, 1000 000 ml @ 999 mls/hr IV . Q1H1M ONE Rx#:[id number] Vancomycin 1,750 mg In 500 Sodium Chloride 0.9% 500 ml 500 ml @ 167 mls/hr IVPB Q16H FIORELLA Rx#: [id number] Oral 50 Output: Urine 90 45 Other: Voiding Method Indwelling Catheter Weight 92.533 kg 92.533 kg Results 08/31/22 08:47 08/31/22 08:47 Cardiac Enzymes 08/30/22 08/30/22 Range/Units 21:17 21:18 AST 42 H (14-36) U/L Troponin I <0.012 (0.000-0.034) ng/mL Coagulation 08/30/22 Range/Units 21:18 PT 12.8 H (9.0-12.0) sec APTT 27.0 (22.0-30.0) sec CBC 08/30/22 08/31/22 Range/Units 21:18 08:47 WBC 16.0 H 31.1 H (3.8-10.6) k/uL RBC 5.01 4.55 (3.80-5.40) m/uL Hgb 15.5 D 14.0 (11.4-16.0) gm/dL Hct 47.9 H 43.9 (34.0-46.0) % Plt Count 316 305 (150-450) k/uL Comprehensive Metabolic Panel 08/30/22 08/31/22 Range/Units 21:17 08:47 Sodium 135 L 136 L (137-145) mmol/L Potassium 3.8 2.9 L (3.5-5.1) mmol/L Chloride 103 107 (98-107) mmol/L Carbon Dioxide 25 22 (22-30) mmol/L BUN 15 14 (7-17) mg/dL Creatinine 0.86 0.89 (0.52-1.04) mg/dL Glucose 75 96 (74-99) mg/dL Calcium 7.6 L 7.3 L (8.4-10.2) mg/dL AST 42 H (14-36) U/L ALT 22 (4-34) U/L Alkaline Phosphatase 228 H (38-126) U/L Total Protein 5.6 L (6.3-8.2) g/dL Albumin 2.5 L (3.5-5.0) g/dL Current Medications Generic Name Dose Route Start Last Admin Trade Name Freq PRN Reason Stop Dose Admin Mantilla Syrup 5 ml 08/31/22 10:00 Mantilla Flavor 60 Ml Bottle PO QID FIORELLA Amiodarone HCl 450 mg/ 250 mls @ 16.667 mls/hr 08/31/22 07:00 08/31/22 07:07 Dextrose/Water IV 09/01/22 00:59 0.5 mg/min .Q15H FIORELLA 16.667 mls/hr Administration Protocol 0.5 MG/MIN Norepinephrine Bitartrate 32 250 mls @ 1.301 mls/hr 08/31/22 00:48 08/31/22 09:20 mg/ Sodium Chloride IV 09/01/22 00:47 0.03 mcg/kg/min .Q24H ONE 1.301 mls/hr Titration Protocol 0.03 MCG/KG/MIN Cefepime HCl 2 gm/ Sodium 100 mls @ 25 mls/hr 08/31/22 09:00 08/31/22 09:42 Chloride IVPB 25 mls/hr Q12HR FIORELLA Administration Protocol Sodium Chloride 1,000 mls @ 999 mls/hr 08/31/22 09:04 08/31/22 09:18 Saline 0.9% IV 08/31/22 10:04 999 mls/hr .Q1H1M ONE Administration Naloxone HCl 0.2 mg 08/31/22 00:52 Naloxone 0.4 Mg/Ml 1 Ml Vial IV Q2M PRN Opioid Reversal Nystatin 500,000 unit 08/31/22 09:00 Nystatin 100,000 Unit/Ml Susp 500,000 Unit/5 Ml Cup PO QID [facility] Protocol Vancomycin HCl 125 mg 08/31/22 09:00 Vancomycin Oral Solution 250 Mg/5 Ml Bottle PO QID [facility] Protocol Intake and Output 03/18/23 03/19/23 03/19/23 22:59 06:59 14:59 Intake Total 442.677 3799.518 Output Total 90 45 Balance 221.582 9597.518 Intake: IV 260 Sodium Chloride 0.9% 1, 260 000 ml @ 130 mls/hr IV . Q7H42M STA Rx#:[id number] Intake, IV Titration 477.192 6165.518 Amount Norepinephrine 32 mg In 10.020 10.518 Sodium Chloride 0.9% 218 ml @ 0.03 MCG/KG/MIN 1. 301 mls/hr IV .Q24H ONE Rx#:[id number] Sodium Chloride 0.9% 1, 260 000 ml @ 130 mls/hr IV . Q7H42M STA Rx#:[id number] Sodium Chloride 0.9% 1, 1000 000 ml @ 999 mls/hr IV . Q1H1M ONE Rx#:[id number] Vancomycin 1,750 mg In 500 Sodium Chloride 0.9% 500 ml 500 ml @ 167 mls/hr IVPB Q16H [facility] Rx#: [id number] Oral 50 Output: Urine 90 45 Other: Voiding Method Indwelling Catheter Weight 92.533 kg 92.533 kg 08/31/22 08:47 08/31/22 08:47
[2022-08-31] MEDS ORDERED: DILTIAZEM DRIP BOLUS FROM BAG 1 MG SOLN IV ONE (10:10)
[2022-08-31] MEDS: DILTIAZEM 125 MG in SODIUM CHLORIDE 0.9% 100 ML IV SCH (10:40)
[2022-08-31] MEDS: CHERRY FLAVOR 60 ML BOTTLE PO SCH ×2 (10:45→14:29)
[2022-08-31] MEDS ORDERED: MIDODRINE 5 MG TAB PO SCH (12:30)
--- NOTE | 2022-08-31 12:47 | P.CNPUL ---
History of Present Illness Consult date: 08/31/22 Requesting physician: Dennis Gonzalez Reason for consult: other (Sepsis, low blood pressure) Chief complaint: Pain all over and not feeling well. History of present illness: This is a 77-year-old female, brought in yesterday by EMS from the [facility], apparently the initial concern was the patient was hypoxic, however the patient presented to the ER, she was not hypoxic but she was h ypotensive and confused. Apparently the patient has been treated recently for C. difficile colitis, and the patient has not been compliant with her oral vancomycin. Continues to have episodes of diarrhea and multiple bowel movements. In the ER the patient did not respond to fluid boluses at least 2 L were given, hence they have physician placed a little right subclavian triple- lumen catheter, patient required norepinephrine, and at that point she required admission to the ICU. The patient herself is not a great historian, she seems to be confused. Based on previous admissions, is known to have history of chronic atrial fibrillation, chronic kidney disease, COPD, hypertension, lymp hedema, dyslipidemia, and previous GI bleeding. I saw this patient this morning, however I was notified about this patient yesterday upon admission from the ER physician. Patient is requiring norepinephrine at 0.1 mcg/kg/m, she is also on amiodarone at 0.5 mg/m, IV fluids 0.9 normal saline at 1 50 mL per hour. Patient is empirically on cefepime and vancomycin, cultures are pending, C. difficile screening is also pending, patient had 2 loose bowel movements last night, went ahead and restarted the patient back on her oral vancomycin 125 mg every 6 hours. CBC showed significant leukocytosis with WBC count of 51,000. Hemoglobin is 14. Patient has relatively normal basic metabolic profile except for low potassium of 2.9 being corrected as per protocol slightly elevated TSH of 5.59. Relatively normal urinalysis, and the vital screening for influenza AB and COVID-19 is negative. ABG on 4 L showed a pO2 of 119 pCO2 of 29 pH of 7.49 Review of Systems Constitutional: Patient describes generalized weakness and aching all over, weakness. ungs: Denies shortness of breath cough or wheezing. cardiovascular: Negative.. GI: Symptoms of diarrhea, otherwise negative. Genitourinary: No dysuria.. No urinary retention. MuscuGeneralized aches and pains Skin: Significant keratosis and lower extremities with lymphedema. . Neurologic: Negative. . Psychiatric:negative Endocrine: negative. Past Medical History Past Medical History: Atrial Fibrillation, COPD, Hypertension, Osteoarthritis (OA), Thyroid Disorder Additional Past Medical History / Comment(s): BLE EDEMA. SOB. RLS History of Any Multi-Drug Resistant Organisms: None Reported Past Surgical History: Appendectomy, Cholecystectomy, Heart Catheterization, Hysterectomy, Tonsillectomy Additional Past Surgical History / Comment(s): BILAT CATARACTS REMOVED WITH LENS IMPLANTS. COLONOSCOPY. THYROIDECTOMY. CARDIOVERSION-09/03/20 Past Anesthesia/Blood Transfusion Reactions: No Reported Reaction Past Psychological History: No Psychological Hx Reported Smoking Status: Former smoker Past Alcohol Use History: None Reported Additional Past Alcohol Use History / Comment(s): QUIT SMOKING 2015 Past Drug Use History: None Reported - Past Family History Sister(s) Family Medical History: Cancer Additional Family Medical History / Comment(s): BLADDER Medications and Allergies Home Medications Medication Instructions Recorded Confirmed Type Acetaminophen [Tylenol Arthritis] 650 mg PO Q4H PRN 08/30/20 08/30/22 History Apixaban [Eliquis] 5 mg PO BID@0900,2100 08/30/20 08/30/22 History Ipratropium/Albuterol Sulfate 1 puff INHALATION RT-Q6H 08/30/20 08/30/22 History [Combivent Respimat Inhaler] Multivitamins, Thera [Multivitamin 1 tab PO DAILY@0900 08/30/20 08/30/22 History (formulary)] rOPINIRole HCL [Requip] 2 mg PO TID@0600,1400,2200 08/30/20 08/30/22 History Baclofen 10 mg PO TID@0600,1400,2200 07/19/22 08/30/22 History Calcium Carb-Vit D 500Mg-5Mcg 1 tab PO HS@209907/19/22 08/30/22 History [Oscal 500+D 5 Mcg (200 Iu)] Cholestyramine (with Sugar) 4 gm PO HS@209907/19/22 08/30/22 History [Questran Packet] Dapagliflozin Propanediol [Farxiga] 5 mg PO DAILY@0600 07/19/22 08/30/22 History Diltiazem Cd [Cardizem CD] 240 mg PO DAILY@0900 07/19/22 08/30/22 History Epoetin Arvin-Epbx [Retacrit] 10,000 units SQ MOWEFR 07/19/22 08/30/22 History Ferrous Sulfate [Iron (65 MG 325 mg PO HS@2100 07/19/22 08/30/22 History Elemental)] Fluticasone Propion/Salmeterol 1 puff INHALATION RT-BID@0600,1800 07/19/22 08/30/22 History [Wixela 250-50 Inhub] Levothyroxine Sodium [Synthroid] 112 mcg PO DAILY@0600 07/19/22 08/30/22 History Loperamide [Imodium] 2 mg PO Q6H PRN 07/19/22 08/30/22 History Ondansetron [Zofran] 4 mg PO Q6H PRN 07/19/22 08/30/22 History Potassium Chloride ER [K-Dur 10] 10 meq PO DAILY@0900 07/19/22 08/30/22 History calcitrioL [Calcitriol] 0.25 mcg PO DAILY@0600 07/19/22 08/30/22 History HYDROcodone/APAP 5-325MG [[place] 1 tab PO Q8H PRN 3 Days #4 tab 08/05/22 08/30/22 Rx 5-325] Ipratropium-Albuterol Nebulize 3 ml INHALATION RT-QID each 08/05/22 08/30/22 Rx [Duoneb 0.5 mg-3 mg/3 ml Soln] Lidocaine Viscous 2% [Xylocaine 30 ml PO QID PRN ml 08/05/22 08/30/22 Rx Viscous] Glucerna Shake 1 can PO BID@0900,1700 08/30/22 08/30/22 History Lactobacillus Acidophilus 1 cap PO BID@0600,2100 08/30/22 08/30/22 History [Acidophilus] Levothyroxine Sodium [Synthroid] 50 mcg PO DAILY@0600 08/30/22 08/30/22 History Metoprolol Tartrate [Lopressor] 25 mg PO TID@0600,1400,2200 08/30/22 08/30/22 History Midodrine HCl [ProAmatine] 10 mg PO TID@0600,1400,2200 08/30/22 08/30/22 History Allergies Allergy/AdvReac Type Severity Reaction Status Date / Time Penicillins Allergy Rash/Hives Verified 08/30/22 21:32 Physical Exam Vitals: Vital Signs Temp Pulse Pulse Resp BP BP Pulse Ox 08/31/22 12:00 108 H 15 116/78 96 08/31/22 11:30 133 H 20 119/81 97 08/31/22 11:00 142 H 15 88/71 97 08/31/22 10:30 120 H 22 104/68 98 08/31/22 10:00 114 H 14 99/56 96 08/31/22 09:45 133 H 23 100/76 97 08/31/22 09:30 135 H 18 97/75 97 08/31/22 09:15 128 H 25 H 124/86 97 08/31/22 09:00 125 H 17 110/61 97 08/31/22 08:45 109 H 21 104/84 97 08/31/22 08:30 97 19 109/71 98 08/31/22 08:15 120 H 20 93/77 97 08/31/22 08:00 130 H 15 100/77 96 08/31/22 07:00 89 16 107/45 96 08/31/22 06:00 111 H 11 L 96/80 89 L 08/31/22 05:00 116 H 12 101/85 96 08/31/22 04:00 124 H 14 82/72 08/31/22 03:00 118 H 16 76/54 98 08/31/22 02:17 0 L 17 08/31/22 01:37 08/31/22 01:24 108 H 18 83/48 95 08/31/22 01:05 97.5 F L 12 93/66 08/31/22 00:45 120 H 16 80/60 97 08/30/22 23:33 120 H 18 100/40 97 08/30/22 23:00 08/30/22 22:46 98.4 F 120 H 16 80/47 99 08/30/22 21:54 140 H 18 73/60 97 08/30/22 21:21 08/30/22 21:18 08/30/22 21:15 70 03/18/23 21:08 100.5 F H 70 22 103/89 100 FiO2 08/31/22 12:00 08/31/22 11:30 08/31/22 11:00 08/31/22 10:30 08/31/22 10:00 08/31/22 09:45 08/31/22 09:30 08/31/22 09:15 08/31/22 09:00 08/31/22 08:45 08/31/22 08:30 08/31/22 08:15 08/31/22 08:00 08/31/22 07:00 08/31/22 06:00 08/31/22 05:00 08/31/22 04:00 08/31/22 03:00 08/31/22 02:17 08/31/22 01:37 35 08/31/22 01:24 08/31/22 01:05 08/31/22 00:45 08/30/22 23:33 08/30/22 23:00 35 08/30/22 22:46 08/30/22 21:54 08/30/22 21:21 35 08/30/22 21:18 35 08/30/22 21:15 08/30/22 21:08 Intake and Output 08/30/22 08/31/22 08/31/22 22:59 06:59 14:59 Intake Total 210.043 4121.518 Output Total 90 50 Balance 599.444 1893.518 Intake: IV 260 Sodium Chloride 0.9% 1, 260 000 ml @ 130 mls/hr IV . Q7H42M STA Rx#:[id number] Intake, IV Titration 473.493 4541.518 Amount Cefepime 2 gm In Sodium 25 Chloride 0.9% 100 ml @ 25 mls/hr IVPB Q12HR [facility] Rx #:[id number] Norepinephrine 32 mg In 10.020 10.518 Sodium Chloride 0.9% 218 ml @ 0.03 MCG/KG/MIN 1. 301 mls/hr IV .Q24H ONE Rx#:[id number] Sodium Chloride 0.9% 1, 260 000 ml @ 130 mls/hr IV . Q7H42M [facility] Rx#:[id number] Sodium Chloride 0.9% 1, 1000 000 ml @ 999 mls/hr IV . Q1H1M ONE Rx#:[id number] Vancomycin 1,750 mg In 500 Sodium Chloride 0.9% 500 ml 500 ml @ 167 mls/hr IVPB Q16H [facility] Rx#: [id number] Oral 50 Output: Urine 90 50 Other: Voiding Method Indwelling Catheter Weight 92.533 kg 92.533 kg Physical Exam: Revealed 77-year-old female in no distress on 2 L nasal cannula. Head: Atraumatic, normocephalic. HEENT:[Neck is supple.] [No neck masses.] [No thyromegaly.] [No JVD.] Chest: [Clear throughout, no crackles, no rhonchi, no wheezes.] Cardiac Exam: Irregular irregular rhythm. [Normal S1 and S2, no S3 gallop, no murmur.] Abdomen: [Soft, nontender, no megaly, no rebound, no guarding, normal bowel sounds.] Extremities: [No clubbing evidence of bipedal edema/lymphedema and chronic ve nous stasis changes in lower extremities. Neurological Exam: [No focal neurologic deficit.]Patient is a bit confused. Psychiatric: Normal mood affect and slightly confused. Skin: Evidence of keratosis of the skin in the lower extremities with lymphedema Results - Laboratory Findings CBC and BMP: 08/31/22 08:47 08/31/22 08:47 ABG ABG pH 7.49 (7.35-7.45) H 08/30/22 21:18 ABG pCO2 29 mmHg (35-45) L 08/30/22 21:18 ABG pO2 119 mmHg (83-108) H 08/30/22 21:18 ABG O2 Saturation 99.3 % (94-97) H 08/30/22 21:18 PT/INR, D-dimer PT 12.8 sec (9.0-12.0) H 08/30/22 21:18 INR 1.3 (<1.2) H 08/30/22 21:18 Abnormal lab findings: Abnormal Labs 08/30/22 08/30/22 08/30/22 21:17 21:18 21:18 WBC 16.0 H Hct 47.9 H RDW 15.6 H Neutrophils # 14.5 H Lymphocytes # PT 12.8 H INR 1.3 H ABG pH ABG pCO2 ABG pO2 ABG O2 Saturation Sodium 135 L Potassium Calcium 7.6 L AST 42 H Alkaline Phosphatase 228 H Total Protein 5.6 L Albumin 2.5 L TSH 5.590 H Urine Protein Urine Glucose (UA) Urine Blood Urine Bacteria Hyaline Casts Urine Mucus 08/30/22 08/30/22 08/31/22 21:18 22:05 08:47 WBC 31.1 H Hct RDW Neutrophils # 29.2 H Lymphocytes # 0.6 L PT INR ABG pH 7.49 H ABG pCO2 29 L ABG pO2 119 H ABG O2 Saturation 99.3 H Sodium Potassium Calcium AST Alkaline Phosphatase Total Protein Albumin TSH Urine Protein 1+ H Urine Glucose (UA) 1+ H Urine Blood Trace H Urine Bacteria Rare H Hyaline Casts 3 H Urine Mucus Rare H 08/31/22 08:47 WBC Hct RDW Neutrophils # Lymphocytes # PT INR ABG pH ABG pCO2 ABG pO2 ABG O2 Saturation Sodium 136 L Potassium 2.9 L Calcium 7.3 L AST Alkaline Phosphatase Total Protein Albumin TSH Urine Protein Urine Glucose (UA) Urine Blood Urine Bacteria Hyaline Casts Urine Mucus - Diagnostic Findings Chest x-ray: image reviewed (Chest x-ray showed left-sided pleural effusion and atelectasis questionable infiltrate in the left lower lobe.) Additional studies: Chest ultrasound was done to evaluate a left-sided pleural effusion, however the effusion was noted to be small measuring only 2.8 cm, hence is not safe to perform thoracentesis. Assessment and Plan Assessment: Impression: Suspect sepsis and septic shock, possible hypovolemic shock. Patient is receiving significant fluid since admission and nonetheless she still requiring norepinephrine. Recent C. difficile colitis, with noncompliance Possible left lower lobe pneumonia and small left-sided pleural effusion, possibly parapneumonic, not safe to perform thoracentesis considering the size. Acute kidney injury with chronic kidney disease, acute on chronic kidney disease History of underlying COPD Dyslipidemia History of GI bleeding history of cellulitis of lower extremities and recently treated at [facility]. Chronic lymphedema. Mild LV dysfunction with ejection fraction of 40-45% Recommendation: Continue to monitor in the ICU Continue amiodarone for A. fib with RVR. Continue fluids and norepinephrine, monitor CVP and continue fluids as long as CVP remains low Antibiotics empirically patient is empirically on cefepime and vancomycin, cu ltures are pending Continue amiodarone for her atrial fibrillation and continue norepinephrine for low blood pressure Resume patient on oral vancomycin since she was not compliant with it and we'll check C. difficile toxin. Infectious disease to see on consultation. Patient to be montgomery cultured including blood, sputum, and urine. And address antibiotics accordingly. GI and DVT prophylaxis. Prognosis is guarded, we'll continue to follow. Time with Patient: Greater than 30
[2022-08-31] MEDS ORDERED: LIDOCAINE VISCOUS 2% 15 ML CUP MUCOUS MEM PRN (13:42)
[2022-08-31] MEDS ORDERED: ONDANSETRON 4 MG TAB PO PRN (13:42)
[2022-08-31] MEDS ORDERED: APIXABAN 5 MG TAB PO SCH (13:45)
[2022-08-31] MEDS ORDERED: METOPROLOL TARTRATE 25 MG TAB PO SCH (14:00)
[2022-08-31] MEDS: PANTOPRAZOLE 40 MG/10 ML VIAL IVP SCH (14:12)
[2022-08-31] MEDS: POTASSIUM CHLORIDE 20 MEQ in WATER FOR INJECTION 1 100ML.BAG IVPB SCH ×3 (14:13→18:37)
[2022-08-31] MEDS: FIDAXOMICIN 200 MG TABLET PO SCH ×2 (14:23→21:37)
[2022-08-31] MEDS ORDERED: SODIUM CHLORIDE 0.9% 500 ML 500 ML IV ONE (14:44)
[2022-08-31] MEDS: ALBUTEROL NEBULIZED 2.5 MG/3 ML INHALATION SCH ×2 (15:11→20:42)
[2022-08-31] MEDS: IPRATROPIUM 0.5 MG/2.5 ML NEBU INHALATION SCH ×2 (15:11→20:42)
[2022-08-31] MEDS ORDERED: FUROSEMIDE 10 MG/ML 10 ML VIAL IV STA (15:39)
[2022-08-31] MEDS ORDERED: IOPAMIDOL CONTRAST (ORAL USE) VIAL PO PRN (15:49)
[2022-08-31] MEDS ORDERED: IPRATROPIUM-ALBUTEROL 3 ML NEB INHALATION SCH (16:00)
[2022-08-31] MEDS ORDERED: VANCOMYCIN 1,500 MG in SODIUM CHLORIDE 0.9% 500 ML 500 ML IVPB SCH (16:00)
[2022-08-31] MEDS ORDERED: VANCOMYCIN 1,750 MG in SODIUM CHLORIDE 0.9% 500 ML 500 ML IVPB SCH (16:00)
--- NOTE | 2022-08-31 19:27 | CT ---
EXAMINATION TYPE: CT abdomen pelvis w con DATE OF EXAM: 08/31/2022 COMPARISON: None HISTORY: pain, c diff. CT DLP: 2266.2 mGycm Automated exposure control for dose reduction was used. CONTRAST: Performed with IV Contrast, patient injected with 100ml mL of Isovue 370. Images obtained from the diaphragm to the floor the pelvis with the IV contrast. There is oral contra st. There is left pleural effusion. Heart is top normal in size. No pericardial effusion. There is minima l pleural thickening at the right posterior lung base. Liver spleen appear intact. The bile ducts are nondilated. No evidence of pancreatic mass. Gallbladde r is contracted. The stomach is intact. There is no adrenal mass. Kidneys show satisfactory contrast opacification. There is mild renal corti laura atrophy. No hydronephrosis. Ureters are not dilated. There is 3.5 cm cortical cyst lower pole rig ht kidney. No retroperitoneal adenopathy. There is Ivory catheter in urinary bladder. Bladder is empt y. There is wall thickening of the rectosigmoid colon. There is mild wall thickening also of the desc ending colon and to some degree the right colon and transverse colon. There is minimal fat stranding in the left paracolic gutter. The lumbar vertebrae have fairly normal alignment. Posterior elements are intact. There is slight lum bar dextroscoliosis. The hip joints are intact. Sacroiliac joints are intact. Appendix not seen. IMPRESSION: There is wall thickening of most of the large bowel and consistent with some diffuse nonspecific coli tis. No free air. No bowel obstruction. Atherosclerotic vascular disease. Left pleural effusion and left lower lobe consolidation.
[2022-08-31] MEDS: LACTOBACILLUS ACIDOPH & BULGAR 1 EACH PACKET PO SCH (21:25)
[2022-08-31] MEDS: MIDODRINE 5 MG TAB PO SCH (21:25)
[2022-08-31] MEDS: FERROUS SULFATE 325 MG TAB PO SCH (21:26)
[2022-08-31] MEDS: CALCIUM CARB-VIT D 500 MG-5 MCG TAB PO SCH (21:26)
[2022-08-31] MEDS: APIXABAN 5 MG TAB PO SCH (21:26)
--- NOTE | 2022-08-31 21:34 | HP ---
HISTORY AND PHYSICAL HISTORY OF PRESENT ILLNESS: Sent the patient in from [facility] last night due to hypoxemia of 83% on room air, severe dehydration and altered mental status, suspect sepsis from C diff colitis. She is noncompliant with her Vancomycin, because she cannot take it, it makes her sick, but she has also not taken some of her other medicines. She appears to be severely dehydrated for which I sent her to the emergency room. REVIEW OF SYSTEMS: A 14-point review of systems, weakness, fatigue, poor appetite, poor energy in all extremities, unable to walk or move, unable to lift her legs secondary to weakness, otherwise negative. PHYSICAL EXAMINATION: GENERAL: She appears malaised. She is alert, oriented, but dry mouth, malaise, generalized weakness, 3/5 strength in 4 extremities. CARDIOVASCULAR: S1, S2. LUNGS: Transmitted upper sounds, decreased breath sounds. ABDOMEN: Distended, increased bowel sounds. No mass, no organomegaly. MUSCULOSKELETAL: Generalized weakness, unable to lift her legs. NEUROLOGIC: Her cranial nerves appear to be intact. Her white count is extremely high, suspect sepsis secondary to C diff colitis, noncompliant with vancomycin. She cannot tolerate it, so we are going to put her on Dificid. Get infectious Disease consulted. Apparently, pulmonology put her on cefepime for sepsis. Wait for Infectious Disease recommendations. Rehydrate her. Start her home medicines PT, OT, etc. Prognosis guarded. She is in ICU due to hypotension and tachycardia. She normally takes midodrine for orthostatic hypotension. She has atrial fibrillation with RVR for which she is on 2 medicines, beta blockers, and Cardizem. Please see further orders. MMODL / IJN: [id number] /
--- NOTE | 2022-08-31 22:20 | P.CONS ---
History of Present Illness - Reason for Consult Consult date: 08/31/22 Sepsis Requesting physician: Chirag Pham - Chief Complaint Mental status changes and weakness x one day - History of Present Illness Patient is a 77-year female with multiple comorbidities including atrial fibrillation COPD hypertension hypothyroidism she was recently admitted in this facility and was treated for C. difficile colitis patient did have a clinical improvement and was discharged to the senior living to finish her course of oral vancomycin however apparently the patient seemed to be noncompliant with her oral vancomycin at the senior living patient was sent to the ER for evaluation of mental status changes confusion and the patient was noticed to be hypotensive requiring multiple fluid boluses and the patient was admitted to the ICU on arrival to the ER patient did have a fever of 100.5 degrees for right patient did have white count of 16,000 which is up to 31.1 today with a left shift kidney function has been normal liver enzymes are normal urine has been negative influenza RSV and COVID testing was negative patient did have a chest x-ray pleural fluid infiltrate left lower lobe without significant change patient was started on cefepime and was continued on oral vancomycin which was subsequently switched over to Dificid infectious disease was consulted for further management of her antibiotic therapy, most information has been obtained from review the chart and talking to nursing staff as the patient herself, not a good historian Review of Systems Positive points has been mentioned in HPI complete review could not be obtained because of his underlying mental status Past Medical History Past Medical History: Atrial Fibrillation, COPD, Hypertension, Osteoarthritis (OA), Thyroid Disorder Additional Past Medical History / Comment(s): BLE EDEMA. SOB. RLS History of Any Multi-Drug Resistant Organisms: None Reported Past Surgical History: Appendectomy, Cholecystectomy, Heart Catheterization, Hysterectomy, Tonsillectomy Additional Past Surgical History / Comment(s): BILAT CATARACTS REMOVED WITH LENS IMPLANTS. COLONOSCOPY. THYROIDECTOMY. CARDIOVERSION-09/03/20 Past Anesthesia/Blood Transfusion Reactions: No Reported Reaction Past Psychological History: No Psychological Hx Reported Smoking Status: Former smoker Past Alcohol Use History: None Reported Additional Past Alcohol Use History / Comment(s): QUIT SMOKING 2015 Past Drug Use History: None Reported - Past Family History Sister(s) Family Medical History: Cancer Additional Family Medical History / Comment(s): BLADDER Medications and Allergies Home Medications Medication Instructions Recorded Confirmed Type Apixaban [Eliquis] 5 mg PO BID@0900,2100 08/30/20 08/30/22 History Ipratropium/Albuterol Sulfate 1 puff INHALATION RT-Q6H 08/30/20 08/30/22 History [Combivent Respimat Inhaler] Multivitamins, Thera [Multivitamin 1 tab PO DAILY@0900 08/30/20 08/30/22 History (formulary)] Calcium Carb-Vit D 500Mg-5Mcg 1 tab PO HS@209907/19/22 08/30/22 History [Oscal 500+D 5 Mcg (200 Iu)] Cholestyramine (with Sugar) 4 gm PO HS@209907/19/22 08/30/22 History [Questran Packet] Dapagliflozin Propanediol [Farxiga] 5 mg PO DAILY@59907/19/22 08/30/22 History Diltiazem Cd [Cardizem CD] 240 mg PO DAILY@0900 07/19/22 08/30/22 History Epoetin Arvin-Epbx [Retacrit] 10,000 units SQ MOWEFR 07/19/22 08/30/22 History Ferrous Sulfate [Iron (65 MG 325 mg PO HS@209907/19/22 08/30/22 History Elemental)] Fluticasone Propion/Salmeterol 1 puff INHALATION RT-BID@0600,1800 07/19/22 0 08/30/22 History [Wixela 250-50 Inhub] Levothyroxine Sodium [Synthroid] 112 mcg PO DAILY@0600 07/19/22 08/30/22 History Loperamide [Imodium] 2 mg PO Q6H PRN 07/19/22 08/30/22 History Ondansetron [Zofran] 4 mg PO Q6H PRN 07/19/22 08/30/22 History Potassium Chloride ER [K-Dur 10] 10 meq PO DAILY@0900 07/19/22 08/30/22 History calcitrioL [Calcitriol] 0.25 mcg PO DAILY@0600 07/19/22 08/30/22 History HYDROcodone/APAP 5-325MG [[place] 1 tab PO Q8H PRN 3 Days #4 tab 08/05/22 08/30/22 Rx 5-325] Ipratropium-Albuterol Nebulize 3 ml INHALATION RT-QID each 08/05/22 08/30/22 Rx [Duoneb 0.5 mg-3 mg/3 ml Soln] Lidocaine Viscous 2% [Xylocaine 30 ml PO QID PRN ml 08/05/22 08/30/22 Rx Viscous] Glucerna Shake 1 can PO BID@0900,1700 08/30/22 08/30/22 History Lactobacillus Acidophilus 1 cap PO BID@0600,2100 08/30/22 08/30/22 History [Acidophilus] Levothyroxine Sodium [Synthroid] 50 mcg PO DAILY@0600 08/30/22 08/30/22 History Metoprolol Tartrate [Lopressor] 25 mg PO TID@0600,1400,2200 08/30/22 08/30/22 History Midodrine HCl [ProAmatine] 10 mg PO TID@0600,1400,2200 08/30/22 08/30/22 History Amiodarone [Cordarone] 200 mg PO BID 30 Days #60 tab 09/05/22 Rx Fidaxomicin [Dificid] 200 mg PO BID 10 Days #20 tab 09/05/22 Rx Mag Hydrox/Al Hydrox/Simeth 30 ml PO TID ml 09/05/22 Rx [Maalox] Metoprolol Tartrate [Lopressor] 12.5 mg PO TID tab 09/05/22 Rx Nystatin 100,000 Unit/ml Susp 3,000,000 unit PO TID 10 Days #100 09/05/22 Rx [Mycostatin Oral Susp] ml Pantoprazole [Protonix] 40 mg PO AC-BID tab 09/05/22 Rx Sodium Bicarbonate Tab 650 mg PO BID tab 09/05/22 Rx Allergies Allergy/AdvReac Type Severity Reaction Status Date / Time Penicillins Allergy Rash/Hives Verified 08/30/22 21:32 Physical Exam Vitals: Vital Signs Temp Pulse Pulse Resp BP BP Pulse Ox 08/31/22 08:00 130 H 15 100/77 96 08/31/22 07:00 89 16 107/45 96 08/31/22 06:00 111 H 11 L 96/80 89 L 08/31/22 05:00 116 H 12 101/85 96 08/31/22 04:00 124 H 14 82/72 08/31/22 03:00 118 H 16 76/54 98 08/31/22 02:17 0 L 17 08/31/22 01:37 08/31/22 01:24 108 H 18 83/48 95 08/31/22 01:05 97.5 F L 12 93/66 08/31/22 00:45 120 H 16 80/60 97 08/30/22 23:33 120 H 18 100/40 97 08/30/22 23:00 08/30/22 22:46 98.4 F 120 H 16 80/47 99 08/30/22 21:54 140 H 18 73/60 97 08/30/22 21:21 08/30/22 21:18 08/30/22 21:15 70 08/30/22 21:08 100.5 F H 70 22 103/89 100 FiO2 08/31/22 08:00 08/31/22 07:00 08/31/22 06:00 08/31/22 05:00 08/31/22 04:00 08/31/22 03:00 08/31/22 02:17 08/31/22 01:37 35 08/31/22 01:24 08/31/22 01:05 08/31/22 00:45 08/30/22 23:33 08/30/22 23:00 35 08/30/22 22:46 08/30/22 21:54 08/30/22 21:21 35 08/30/22 21:18 35 08/30/22 21:15 08/30/22 21:08 Intake and Output 08/30/22 08/31/22 08/31/22 22:59 06:59 14:59 Intake Total 430.965 1156.518 Output Total 90 45 Balance 698.794 9032.518 Intake: IV 260 Sodium Chloride 0.9% 1, 260 000 ml @ 130 mls/hr IV . Q7H42M [facility] Rx#:[id number] Intake, IV Titration 074.918 4054.518 Amount Norepinephrine 32 mg In 10.020 10.518 Sodium Chloride 0.9% 218 ml @ 0.03 MCG/KG/MIN 1. 301 mls/hr IV .Q24H [facility] Rx#:[id number] Sodium Chloride 0.9% 1, 260 000 ml @ 130 mls/hr IV . Q7H42M [facility] Rx#:[id number] Sodium Chloride 0.9% 1, 1000 000 ml @ 999 mls/hr IV . Q1H1M [facility] Rx#:[id number] Vancomycin 1,750 mg In 500 Sodium Chloride 0.9% 500 ml 500 ml @ 167 mls/hr IVPB Q16H [facility] Rx#: [id number] Oral 50 Output: Urine 90 45 Other: Voiding Method Indwelling Catheter Weight 92.533 kg 92.533 kg GENERAL DESCRIPTION: Elderly female lying in bed, no distress. No tachypnea or accessory muscle of respiration use. HEENT: Shows Pallor , no scleral icterus. Oral mucous membrane is dry. NECK: Trachea central, no thyromegaly. LUNGS: Unlabored breathing. Decreased breath sounds at the base HEART: S1, S2, regular rate and rhythm. ABDOMEN: Soft, mild distention and tenderness EXTREMITIES: No edema of feet. SKIN: No rash, no masses palpable. NEUROLOGICAL: The patient is lethargic but arousable, mood and affect could not be determined Results CBC & Chem 7: 09/05/22 09:11 09/05/22 06:44 Labs: Abnormal Lab Results - Last 24 Hours (Table) 08/30/22 08/30/22 08/30/22 Range/Units 21:17 21:18 21:18 WBC 16.0 H (3.8-10.6) k/uL Hct 47.9 H (34.0-46.0) % RDW 15.6 H (11.5-15.5) % Neutrophils # 14.5 H (1.3-7.7) k/uL PT 12.8 H (9.0-12.0) sec INR 1.3 H (<1.2) ABG pH (7.35-7.45) ABG pCO2 (35-45) mmHg ABG pO2 (83-108) mmHg ABG O2 Saturation (94-97) % Sodium 135 L (137-145) mmol/L Potassium (3.5-5.1) mmol/L Calcium 7.6 L (8.4-10.2) mg/dL AST 42 H (14-36) U/L Alkaline Phosphatase 228 H (38-126) U/L Total Protein 5.6 L (6.3-8.2) g/dL Albumin 2.5 L (3.5-5.0) g/dL TSH 5.590 H (0.465-4.680) mIU/L Urine Protein (Negative) Urine Glucose (UA) (Negative) Urine Blood (Negative) Urine Bacteria (None) /hpf Hyaline Casts (0-2) /lpf Urine Mucus (None) /hpf 08/30/22 08/30/22 08/31/22 Range/Units 21:18 22:05 08:47 WBC (3.8-10.6) k/uL Hct (34.0-46.0) % RDW (11.5-15.5) % Neutrophils # (1.3-7.7) k/uL PT (9.0-12.0) sec INR (<1.2) ABG pH 7.49 H (7.35-7.45) ABG pCO2 29 L (35-45) mmHg ABG pO2 119 H (83-108) mmHg ABG O2 Saturation 99.3 H (94-97) % Sodium 136 L (137-145) mmol/L Potassium 2.9 L (3.5-5.1) mmol/L Calcium 7.3 L (8.4-10.2) mg/dL AST (14-36) U/L Alkaline Phosphatase (38-126) U/L Total Protein (6.3-8.2) g/dL Albumin (3.5-5.0) g/dL TSH (0.465-4.680) mIU/L Urine Protein 1+ H (Negative) Urine Glucose (UA) 1+ H (Negative) Urine Blood Trace H (Negative) Urine Bacteria Rare H (None) /hpf Hyaline Casts 3 H (0-2) /lpf Urine Mucus Rare H (None) /hpf Assessment and Plan (1) C. difficile colitis Status: Acute Code(s): A04.72 - ENTEROCOLITIS D/T CLOSTRIDIUM DIFFICILE, NOT SPCF RECUR SNOMED Code(s): 691128792 (2) Sepsis Status: Acute Code(s): A41.9 - SEPSIS, UNSPECIFIED ORGANISM SNOMED Code(s): 26955795 Plan: 1patient presented to hospital with sepsis/septic shock source is likely C. difficile colitis in this patient noticed to be hypotension dehydration diarrhea and apparently the patient was not compliant with her oral vancomycin at the senior living could be the cause for her persistent C. difficile colitis clinically not behaving as pneumonia urine was negative and no evidence of any cellulitis. 2we will obtain CT of abdominal pelvis to better define underlying intra- abdominal pathology with oral contrast only no need for IV contrast. 3continue with the Dificid however discontinue cefepime. We will check inflammatory markers. We will follow on clinical condition and cultures to further adjust medication if needed Thank you for this consultation we will follow the patient along with you Time with Patient: Greater than 30
[2022-09-01] MEDS: DILTIAZEM 125 MG in SODIUM CHLORIDE 0.9% 100 ML IV SCH ×2 (00:40→08:42)
[2022-09-01 07:03] LABS: Basophils # (A) 0.1 k/uL (0-0.2); Basophils % (A) 0 %; Eosinophils # (A) 0.1 k/uL (0-0.7); Eosinophils % (A) 0 %; HCT 44.1 % (34.0-46.0); HGB 13.9 gm/dL (11.4-16.0); Hypochromasia Slight; Lymphocytes # (A) 0.9 k/uL (1.0-4.8); Lymphocytes % (A) 2 %; MCH 30.7 pg (25.0-35.0); MCHC 31.6 g/dL (31.0-37.0); MCV 97.1 fL (80.0-100.0); Mean Platelet Volume 8.1; Monocytes # (A) 0.7 k/uL (0-1.0); Monocytes % (A) 2 %; Neutrophils % (A) 95 %; Platelet Count 294 k/uL (150-450); Poikilocytosis Slight; RBC 4.54 m/uL (3.80-5.40); RDW 15.6 % (11.5-15.5)
[2022-09-01 07:18] LABS: Calcium 6.5 mg/dL (8.4-10.2); Potassium 3.8 mmol/L (3.5-5.1)
[2022-09-01] MEDS: ALBUTEROL NEBULIZED 2.5 MG/3 ML INHALATION SCH ×4 (07:38→21:06)
[2022-09-01] MEDS: IPRATROPIUM 0.5 MG/2.5 ML NEBU INHALATION SCH ×4 (07:38→21:06)
[2022-09-01] MEDS: AMIODARONE 450 MG in DEXTROSE 5% IN WATER 250 ML IV SCH ×2 (08:40)
[2022-09-01] MEDS: MIDODRINE 5 MG TAB PO SCH ×3 (08:53→22:20)
[2022-09-01] MEDS: LACTOBACILLUS ACIDOPH & BULGAR 1 EACH PACKET PO SCH ×3 (08:54→22:30)
[2022-09-01] MEDS: LEVOTHYROXINE 50 MCG TAB PO SCH (08:54)
--- NOTE | 2022-09-01 08:57 | XR ---
EXAMINATION TYPE: XR chest 1V portable DATE OF EXAM: 09/01/2022 COMPARISON: 08/31/2022 HISTORY: Line placement TECHNIQUE: Single frontal view of the chest is obtained. FINDINGS: Right-sided central line seen with the tip overlying the right atrium. There is linear andrea nges at the right lung base in the left lower lobe consolidation with small effusion stable. Heart si ze stable with atherosclerotic change aorta. No overt failure. Biapical pleural thickening. IMPRESSION: 1. Left lower lobe infiltrate and pleural effusion stable.
[2022-09-01] MEDS ORDERED: DILTIAZEM CD 240 MG CAP.ER.24H PO SCH (09:00)
[2022-09-01] MEDS: PANTOPRAZOLE 40 MG/10 ML VIAL IVP SCH (09:09)
[2022-09-01] MEDS: APIXABAN 5 MG TAB PO SCH ×2 (09:16→20:31)
[2022-09-01] MEDS: LEVOTHYROXINE 112 MCG TAB PO SCH (09:16)
[2022-09-01] MEDS: MULTIVITAMINS, THERA 1 EACH TAB PO SCH (09:16)
[2022-09-01] MEDS: POTASSIUM CHLORIDE ER 10 MEQ TAB.ER.PRT PO SCH (09:16)
[2022-09-01] MEDS: FIDAXOMICIN 200 MG TABLET PO SCH ×2 (09:16→20:31)
[2022-09-01] MEDS: HYDROcodone/APAP 5-325MG 1 EACH TAB PO PRN ×2 (09:17→20:28)
[2022-09-01] MEDS: NYSTATIN 100,000 UNIT/ML SUSP 500,000 UNIT/5 ML CUP PO SCH ×3 (09:17→17:59)
[2022-09-01] MEDS ORDERED: Potassium Replacement Protocol 1 EACH MISC MISCELLANE PRN (09:31)
[2022-09-01] MEDS: METOPROLOL TARTRATE 12.5 MG TAB PO SCH ×3 (09:34→22:20)
--- NOTE | 2022-09-01 10:18 | P.NPCON ---
History of Present Illness - Reason for Consult acute renal failure - History of Present Illness Reason for consultation: Acute kidney injury History of present illness: Patient is a 77-year-old female seen in renal consultation for acute kidney injury. Patient's creatinine on admission was 0.86 and is 1.13 today. Patient presented to the hospital from an [facility] care facility due to hypoxia and hyp otension. Patient has received 4-1/2 L of normal saline since admission and also received 60 mg of IV Lasix yesterday. Patient was noted to be in A. fib with RVR and is currently maintained on Cardizem drip. Patient is positive for C. diff. Levophed was discontinued this morning her blood pressures currently in the systolic 80s and will be resumed. Patient is currently sitting up in bed. She is not a very reliable historian. Patient has history of systolic CHF with ejection fraction of 40-45%. Patient did undergo CT of the abdomen and pelvis with IV contrast on 08/31/2022 which showed left pleural effusion and consolidation. No hydronephrosis was noted. Nonspecific colitis was also noted. Patient is noted to be acidotic with bicarb level of 16. She's currently receiving normal saline at 1 30 mL an hour. She is on 3 L nasal cannula. Urine output has been about 10-30 mL an hour. She did respond to IV Lasix yesterday but then tapered off again. I don't see any nonsteroidals and her home medication list. She was taking farxiga which is currently held. Vital signs are stable. Blood pressure low. In A. fib. General: No acute distress. HEENT: Head exam is unremarkable. On nasal cannula. LUNGS: No audible rhonchi or wheezes. HEART: Irregular rate and rhythm. ABDOMEN: Nontender. Obese. EXTREMITITES: Chronic skin changes noted. 2+ edema. Past Medical History Past Medical History: Atrial Fibrillation, COPD, Hypertension, Osteoarthritis (OA), Thyroid Disorder Additional Past Medical History / Comment(s): BLE EDEMA. SOB. RLS History of Any Multi-Drug Resistant Organisms: None Reported Past Surgical History: Appendectomy, Cholecystectomy, Heart Catheterization, Hysterectomy, Tonsillectomy Additional Past Surgical History / Comment(s): BILAT CATARACTS REMOVED WITH LENS IMPLANTS. COLONOSCOPY. THYROIDECTOMY. CARDIOVERSION-09/03/20 Past Anesthesia/Blood Transfusion Reactions: No Reported Reaction Past Psychological History: No Psychological Hx Reported Smoking Status: Former smoker Past Alcohol Use History: None Reported Additional Past Alcohol Use History / Comment(s): QUIT SMOKING 2015 Past Drug Use History: None Reported - Past Family History Sister(s) Family Medical History: Cancer Additional Family Medical History / Comment(s): BLADDER Medications and Allergies Home Medications Medication Instructions Recorded Confirmed Type Acetaminophen [Tylenol Arthritis] 650 mg PO Q4H PRN 08/30/20 08/30/22 History Apixaban [Eliquis] 5 mg PO BID@0900,2100 08/30/20 08/30/22 History Ipratropium/Albuterol Sulfate 1 puff INHALATION RT-Q6H 08/30/20 08/30/22 History [Combivent Respimat Inhaler] Multivitamins, Thera [Multivitamin 1 tab PO DAILY@0900 08/30/20 08/30/22 History (formulary)] rOPINIRole HCL [Requip] 2 mg PO TID@0600,1400,2200 08/30/20 08/30/22 History Baclofen 10 mg PO TID@0600,1400,2200 07/19/22 08/30/22 History Calcium Carb-Vit D 500Mg-5Mcg 1 tab PO HS@209907/19/22 08/30/22 History [Oscal 500+D 5 Mcg (200 Iu)] Cholestyramine (with Sugar) 4 gm PO HS@209907/19/22 08/30/22 History [Questran Packet] Dapagliflozin Propanediol [Farxiga] 5 mg PO DAILY@0600 07/19/22 08/30/22 History Diltiazem Cd [Cardizem CD] 240 mg PO DAILY@0900 07/19/22 08/30/22 History Epoetin Arvin-Epbx [Retacrit] 10,000 units SQ MOWEFR 07/19/22 08/30/22 History Ferrous Sulfate [Iron (65 MG 325 mg PO HS@209907/19/22 08/30/22 History Elemental)] Fluticasone Propion/Salmeterol 1 puff INHALATION RT-BID@0600,1800 07/19/22 08/30/22 History [Wixela 250-50 Inhub] Levothyroxine Sodium [Synthroid] 112 mcg PO DAILY@0600 07/19/22 08/30/22 History Loperamide [Imodium] 2 mg PO Q6H PRN 07/19/22 08/30/22 History Ondansetron [Zofran] 4 mg PO Q6H PRN 07/19/22 08/30/22 History Potassium Chloride ER [K-Dur 10] 10 meq PO DAILY@0900 07/19/22 08/30/22 History calcitrioL [Calcitriol] 0.25 mcg PO DAILY@0600 07/19/22 08/30/22 History HYDROcodone/APAP 5-325MG [[place] 1 tab PO Q8H PRN 3 Days #4 tab 08/05/22 08/30/22 Rx 5-325] Ipratropium-Albuterol Nebulize 3 ml INHALATION RT-QID each 08/05/22 08/30/22 Rx [Duoneb 0.5 mg-3 mg/3 ml Soln] Lidocaine Viscous 2% [Xylocaine 30 ml PO QID PRN ml 08/05/22 08/30/22 Rx Viscous] Glucerna Shake 1 can PO BID@0900,1700 08/30/22 08/30/22 History Lactobacillus Acidophilus 1 cap PO BID@0600,2100 08/30/22 08/30/22 History [Acidophilus] Levothyroxine Sodium [Synthroid] 50 mcg PO DAILY@0600 08/30/22 08/30/22 History Metoprolol Tartrate [Lopressor] 25 mg PO TID@0600,1400,2200 08/30/22 08/30/22 History Midodrine HCl [ProAmatine] 10 mg PO TID@0600,1400,2200 08/30/22 08/30/22 History Allergies Allergy/AdvReac Type Severity Reaction Status Date / Time Penicillins Allergy Rash/Hives Verified 08/30/22 21:32 Physical Exam Vitals: Vital Signs Temp Pulse Resp BP Pulse Ox 09/01/22 09:00 112 H 17 102/68 94 L 09/01/22 08:00 97.9 F 98 21 102/57 97 09/01/22 07:49 98 09/01/22 07:40 91 09/01/22 07:00 96 15 100/73 94 L 09/01/22 06:00 104 H 14 81/64 95 09/01/22 05:00 95/80 09/01/22 04:00 116 H 19 96/66 96 09/01/22 03:00 121 H 14 109/70 96 09/01/22 02:00 140 H 12 100/59 94 L 09/01/22 01:00 112 H 23 83/70 93 L 09/01/22 00:00 128 H 26 H 80/69 92 L 08/31/22 23:00 126 H 15 101/80 90 L 08/31/22 22:00 111 H 21 101/80 08/31/22 21:02 105 H 08/31/22 21:00 122 H 28 H 93/83 08/31/22 20:42 114 H 08/31/22 20:00 120 H 21 109/83 08/31/22 19:00 103 H 19 108/71 08/31/22 18:00 115 H 18 118/83 96 08/31/22 17:30 103 H 18 99/58 08/31/22 17:00 96 16 93/64 96 08/31/22 16:30 134 H 25 H 94/49 08/31/22 16:00 98.5 F 129 H 18 88/61 97 08/31/22 15:30 134 H 18 100/67 93 L 08/31/22 15:00 98 17 112/81 97 08/31/22 14:30 120 H 16 90/72 98 08/31/22 14:00 99 21 131/119 08/31/22 13:30 98.2 F 112 H 13 108/86 96 08/31/22 13:00 133 H 21 81/65 95 08/31/22 12:30 99.3 F 118 H 21 102/63 95 08/31/22 12:00 108 H 15 116/78 96 08/31/22 11:30 133 H 20 119/81 97 08/31/22 11:00 142 H 15 88/71 97 08/31/22 10:30 120 H 22 104/68 98 Intake and Output 08/31/22 09/01/22 09/01/22 22:59 06:59 14:59 Intake Total 2046.75 960 521.25 Output Total 705 205 30 Balance 1341.75 755 491.25 Intake: IV 1040 910 390 Sodium Chloride 0.9% 1, 1040 910 390 000 ml @ 130 mls/hr IV . Q7H42M [facility] [email or web address]] Rx#:[id number] Intake, IV Titration 906.75 131.25 Amount Diltiazem 125 mg In 106.75 131.25 Sodium Chloride 0.9% 100 ml @ Per Protocol IV .Q0M [facility] Rx#:[id number] Potassium Chloride 20 meq 300 In Water For Injection 1 100ml.bag @ 50 mls/hr IVPB Q2H [facility] Rx#: [id number] Sodium Chloride 0.9% 500 500 ml 500 ml @ 999 mls/hr IV .Q31M [facility] Rx#:[id number] Oral 100 50 Output: Urine 705 205 30 Other: Voiding Method Indwelling Catheter Indwelling Catheter # Bowel Movements 1 Weight 99.5 kg Results - Lab Results Most recent lab results ABG pH 7.49 (7.35-7.45) H 08/30/22 21:18 ABG pCO2 29 mmHg (35-45) L 08/30/22 21:18 ABG pO2 119 mmHg (83-108) H 08/30/22 21:18 ABG HCO3 22 mmol/L (21-25) 08/30/22 21:18 ABG O2 Saturation 99.3 % (94-97) H 08/30/22 21:18 Calcium 6.5 mg/dL (8.4-10.2) L 09/01/22 06:35 Magnesium 2.2 mg/dL (1.6-2.3) 08/30/22 21:17 09/01/22 06:35 09/01/22 06:35 Assessment and Plan Plan: assessment: 1. Acute kidney injury secondary to hemodynamic ATN. Also received IV contrast on 08/31/2022. Creatinine 1.13 today. No hydronephrosis noted on CAT scan. 2. Metabolic acidosis secondary to acute kidney injury GI losses, and IV flui ds. 3. A. fib with RVR maintained on Cardizem drip. 4. Acute on chronic systolic CHF with ejection fraction of 40-45%. 5. Volume overload. 6. C. diff colitis. 7. Hypokalemia from poor intake and diuresis. Replaced. Improved. Plan: Change IV fluids to bicarb drip at 75 mL an hour. Lasix 60 mg IV once today. Maintain midodrine. Resume Levophed as needed to maintain adequate blood pressure. Stop Aranesp as patient is currently not anemic. Avoid nephrotoxins. Continue to monitor renal function and urine output. Thank you for the consultation. I will continue to follow the patient with you during her hospital stay.
[2022-09-01] MEDS: DEXTROSE 5% IN WATER 1,000 ML with SODIUM BICARB (1 MEQ/ML) 150 ML IV SCH (10:51)
--- NOTE | 2022-09-01 11:29 | P.PN ---
Subjective Progress Note Date: 09/01/22 This is a 77-year-old female, brought in yesterday by EMS from the [facility], apparently the initial concern was the patient was hypoxic, however the patient presented to the ER, she was not hypoxic but she was hypotensive and confused. Apparently the patient has been treated recently for C. difficile colitis, and the patient has not been compliant with her oral vancomycin. Continues to have episodes of diarrhea and multiple bowel movements. In the ER the patient did not respond to fluid boluses at least 2 L were given, hence they have physician placed a little right subclavian triple- lumen catheter, patient required norepinephrine, and at that point she required admission to the ICU. The patient herself is not a great historian, she seems to be confused. Based on previous admissions, is known to have history of chronic atrial fibrillation, chronic kidney disease, COPD, hypertension, lymphedema, dyslipidemia, and previous GI bleeding. I saw this patient this morning, however I was notified about this patient yesterday upon admission from the ER physician. Patient is requiring norepinephrine at 0.1 mcg/kg/m, she is also on amiodarone at 0.5 mg/m, IV fluids 0.9 normal saline at 1 50 mL per hour. Patient is empirically on cefepime and vancomycin, cultures are pending, C. difficile screening is also pending, patient had 2 loose bowel movements last night, went ahead and restarted the patient back on her oral vancomycin 125 mg every 6 hours. CBC showed significant leukocytosis with WBC count of 51,000. Hemoglobin is 14. Patient has relatively normal basic metabolic profile except for low potassium of 2.9 being corrected as per protocol slightly elevated TSH of 5.59. Relatively normal urinalysis, and the vital screening for influenza AB and COVID-19 is negative. ABG on 4 L showed a pO2 of 119 pCO2 of 29 pH of 7.49 . The patient is seen today 09/01/2022 in follow-up in the intensive care unit. She is currently sitting up in bed. A bit more awake and alert. She is maintaining good O2 saturations in the 90s on 3 L/m per nasal cannula. She remains on normal saline at 130 ML's per hour. Currently on a Cardizem drip at 15 mg per hour. Norepinephrine has been weaned off. She is still having issues with low urine output. She is positive for C. difficile colitis. Currently on Dificid. White count 41.0. Hemoglobin 13.9. Platelets 394. Sodium 136. Potassium 3.8. Chloride 114. Bicarb 16. BUN 14. Creatinine 1.13. Anticoagulated with Eliquis. Chest x-ray continues to show left lower lobe infiltrate on pleural effusion. Objective - Vital Signs Vital signs: Vital Signs Temp 97.9 F 09/01/22 08:00 Pulse 109 H 09/01/22 11:00 Resp 18 09/01/22 11:00 BP 106/67 09/01/22 11:00 Pulse Ox 98 09/01/22 11:00 FiO2 35 08/31/22 01:37 Intake & Output 08/31/22 09/01/22 09/01/22 18:59 06:59 18:59 Intake Total 4364.189 1556.75 636.25 Output Total 600 400 40 Balance 3764.189 1156.75 596.25 Weight 99.5 kg Intake: IV 1430 1300 430 .9NS KVO 40 Sodium Chloride 0.9% 1, 1430 1300 390 000 ml @ 130 mls/hr IV . Q7H42M STA Rx#:[id number] Intake, IV Titration 2934.189 106.75 206.25 Amount Cefepime 2 gm In Sodium 100 Chloride 0.9% 100 ml @ 25 mls/hr IVPB Q12HR [facility] Rx #:[id number] Dextrose 5% in Water 1, 75 000 ml @ 75 mls/hr IV . [id number] [facility] with Sodium Bicarb (1 Meq/ml) 150 ml Rx#:[id number] Diltiazem 125 mg In 18.250 106.75 131.25 Sodium Chloride 0.9% 100 ml @ Per Protocol IV .Q0M [facility] Rx#:[id number] Norepinephrine 32 mg In 15.939 Sodium Chloride 0.9% 218 ml @ 0.03 MCG/KG/MIN 1. 301 mls/hr IV .Q24H ONE Rx#:[id number] Potassium Chloride 20 meq 300 In Water For Injection 1 100ml.bag @ 50 mls/hr IVPB Q2H [facility] Rx#: [id number] Sodium Chloride 0.9% 1, 1000 000 ml @ 999 mls/hr IV . Q1H1M ONE Rx#:[id number] Sodium Chloride 0.9% 1, 1000 000 ml @ 999 mls/hr IV . Q1H1M ONE Rx#:[id number] Sodium Chloride 0.9% 500 500 ml 500 ml @ 999 mls/hr IV .Q31M ONE Rx#:[id number] Oral 150 Output: Urine 600 400 40 Other: Voiding Method Indwelling Catheter Indwelling Catheter # Bowel Movements 1 - Exam GENERAL EXAM: Alert, pleasant 77-year-old female, on 3 L nasal cannula, comfortable in no apparent distress. HEAD: Normocephalic. EYES: Normal reaction of pupils, equal size. NOSE: Clear with pink turbinates. THROAT: No erythema or exudates. NECK: No masses, no JVD. CHEST: No chest wall deformity. LUNGS: Equal air entry with no crackles, wheeze, rhonchi or dullness. CVS: S1 and S2 normal with no audible murmur, irregular rhythm. ABDOMEN: No hepatosplenomegaly, normal bowel sounds, no guarding or rigidity. SPINE: No scoliosis or deformity SKIN: Evidence of keratosis of the skin on the lower extremities with lymphedema CENTRAL NERVOUS SYSTEM: No focal deficits, tone is normal in all 4 extremities. EXTREMITIES: There is 1-2+ peripheral edema. Changes of chronic venous stasis. No clubbing, no cyanosis. Peripheral pulses are intact. - Labs CBC & Chem 7: 09/01/22 06:35 09/01/22 06:35 Labs: Abnormal Lab Results - Last 24 Hours (Table) 08/31/22 08/31/22 09/01/22 Range/Units 08:47 14:30 06:35 WBC 41.0 H (3.8-10.6) k/uL RDW 15.6 H (11.5-15.5) % Neutrophils # 29.2 H 39.0 H (1.3-7.7) k/uL Lymphocytes # 0.6 L 0.9 L (1.0-4.8) k/uL Sodium (137-145) mmol/L Chloride (98-107) mmol/L Carbon Dioxide (22-30) mmol/L Creatinine (0.52-1.04) mg/dL Calcium (8.4-10.2) mg/dL C. difficile (EIA) Intrp Positive A (Negative) 09/01/22 Range/Units 06:35 WBC (3.8-10.6) k/uL RDW (11.5-15.5) % Neutrophils # (1.3-7.7) k/uL Lymphocytes # (1.0-4.8) k/uL Sodium 136 L (137-145) mmol/L Chloride 114 H (98-107) mmol/L Carbon Dioxide 16 L (22-30) mmol/L Creatinine 1.13 H (0.52-1.04) mg/dL Calcium 6.5 L (8.4-10.2) mg/dL C. difficile (EIA) Intrp (Negative) Microbiology - Last 24 Hours (Table) 08/30/22 22:05 Blood Culture - Preliminary Blood No Growth after 24 hours Assessment and Plan Assessment: Suspect sepsis and septic shock, possible hypovolemic shock. Patient is receiving significant fluid since admission and has been weaned off norepinephrine. Positive for C. difficile colitis 08/31/2022. Currently on Dificid Recent C. difficile colitis, with noncompliance. Intolerant to oral vancomycin Leukocytosis secondary to above Atrial fibrillation with a rapid ventricular response, currently on a Cardizem drip Acute hypoxemic respiratory failure secondary to suspected left lower lobe pneumonia and small left-sided pleural effusion, possibly parapneumonic, not safe to perform thoracentesis considering the size. Acute kidney injury with chronic kidney disease, acute on chronic kidney disease History of underlying COPD Dyslipidemia History of GI bleeding history of cellulitis of lower extremities and recently treated at [facility]. Chronic lymphedema. Mild LV dysfunction with ejection fraction of 40-45% Plan: The patient was seen and evaluated Chest x-ray, labs and medications reviewed Ultrasound of the left chest Check a pro-calcitonin Nephrology consult for low urine output We will continue to follow I have personally seen and examined the patient, performed the documentation and the assessment and plan as written. Number of minutes spent on the visit: 10.
[2022-09-01] MEDS: POTASSIUM CHLORIDE 20 MEQ in WATER FOR INJECTION 1 100ML.BAG IVPB SCH ×2 (12:00→14:12)
[2022-09-01] MEDS ORDERED: DARBEPOETIN ALFA 60 MCG/0.3 ML SYRINGE SQ SCH (12:00)
[2022-09-01] MEDS ORDERED: FUROSEMIDE 10 MG/ML 10 ML VIAL IV ONE (12:00)
[2022-09-01] MEDS: metroNIDAZOLE-NS PMX 500 MG in SALINE 1 100ML.BAG IVPB SCH ×2 (12:45→20:31)
[2022-09-01] MEDS: NOREPINEPHRINE 8 MG in SODIUM CHLORIDE 0.9% 250 ML IV SCH (14:05)
--- NOTE | 2022-09-01 15:47 | PN ---
PROGRESS NOTE SUBJECTIVE: Sapna Dumont is admitted to the hospital and was seen by Dr. Zapata yesterday. She is in atrial fibrillation. The rate is in the 90 to 110 range. She also has underlying sepsis, probably Clostridium difficile. She is on appropriate antibiotics. Unfortunately, her creatinine is going up, and urine output has decreased. Nephrology has been requested to evaluate the patient. I am recommending that we will decrease the Cardizem drip to 10 mg/hour and also start a small dose of metoprolol 12.5 mg t.i.d. She is still on Levophed. We will watch this very closely and see how she responds to the metoprolol 12.5 mg. Discussed my thoughts with the patient. She is also on antibiotics at this time. She is also on apixaban 5 mg b.i.d. She is resting comfortably. OBJECTIVE: VITAL SIGNS: Her blood pressure is 108/60, pulse rate is about 118 beats per minute. HEENT: Limited exam is unremarkable. Fundus was not examined by me. NECK: Supple. There is JVD of 1 cm. No carotid bruit. HEART: Reveals S1 and S2 heard normally. There is irregularity in rhythm. Short systolic murmur at left sternal border. LUNGS: Reveal diminished air entry. ABDOMEN: Soft. EXTREMITIES: Lower extremities reveal diminished pulses. CENTRAL NERVOUS SYSTEM: Grossly, no focal deficits. IMPRESSION: 1. Sepsis with dehydration, probably secondary to Clostridium difficile. 2. Acute kidney injury with decreased urine output. Nephrology was involved. Consult was requested. 3. History of hypertension. 4. Hyperlipidemia. 5. History of subaortic membrane, details unavailable. RECOMMENDATIONS: I am recommending that we add a small dose of beta-keyon, watch her blood pressure, and decrease Cardizem IV. Overall, prognosis remains guarded. MMODL / IJN: [id number] /
[2022-09-01] MEDS: CALCIUM CARB-VIT D 500 MG-5 MCG TAB PO SCH ×2 (20:30→22:30)
[2022-09-01] MEDS: FERROUS SULFATE 325 MG TAB PO SCH ×2 (20:31→22:30)
[2022-09-01] MEDS: MAG HYDROX/AL HYDROX/SIMETH 30 ML, LIDOCAINE VISCOUS 2% 30 ML, NYSTATIN 100,000 UNIT/ML... PO SCH ×3 (22:21)
--- NOTE | 2022-09-01 23:30 | P.PN ---
Subjective Progress Note Date: 09/01/22 Principal diagnosis: Sepsis and C. diff colitis Patient is a 77-year old female with multiple comorbidities including atrial fibrillation COPD hypertension hypothyroidism she was recently admitted in this facility and was treated for C. difficile colitis, apparently the patient was not compliant with her oral vancomycin and now presenting to the hospital with mental status changes sepsis and did have a positive stool for C. diff and received abdominal pelvis did show evidence of colitis. On today's evaluation that is 09/01/2022, the patient denies any fever or any chills she is breathing comfortably on nasal cannula oxygen the patient has been taken off the pressor support this morning and did have 2 loose stool but no blood or mucus in stool Objective - Vital Signs Vital signs: Vital Signs Temp 97.9 F 09/01/22 08:00 Pulse 109 H 09/01/22 11:00 Resp 18 09/01/22 11:00 BP 106/67 09/01/22 11:00 Pulse Ox 98 09/01/22 11:00 FiO2 35 08/31/22 01:37 Intake & Output 08/31/22 09/01/22 09/01/22 18:59 06:59 18:59 Intake Total 4364.189 1556.75 636.25 Output Total 600 400 40 Balance 3764.189 1156.75 596.25 Weight 99.5 kg Intake: IV 1430 1300 430 .9NS KVO 40 Sodium Chloride 0.9% 1, 1430 1300 390 000 ml @ 130 mls/hr IV . Q7H42M STA Rx#:[id number] Intake, IV Titration 2934.189 106.75 206.25 Amount Cefepime 2 gm In Sodium 100 Chloride 0.9% 100 ml @ 25 mls/hr IVPB Q12HR [facility] Rx #:[id number] Dextrose 5% in Water 1, 75 000 ml @ 75 mls/hr IV . [id number] [facility] with Sodium Bicarb (1 Meq/ml) 150 ml Rx#:[id number] Diltiazem 125 mg In 18.250 106.75 131.25 Sodium Chloride 0.9% 100 ml @ Per Protocol IV .Q0M [facility] Rx#:[id number] Norepinephrine 32 mg In 15.939 Sodium Chloride 0.9% 218 ml @ 0.03 MCG/KG/MIN 1. 301 mls/hr IV .Q24H ONE Rx#:[id number] Potassium Chloride 20 meq 300 In Water For Injection 1 100ml.bag @ 50 mls/hr IVPB Q2H [facility] Rx#: [id number] Sodium Chloride 0.9% 1, 1000 000 ml @ 999 mls/hr IV . Q1H1M ONE Rx#:[id number] Sodium Chloride 0.9% 1, 1000 000 ml @ 999 mls/hr IV . Q1H1M ONE Rx#:[id number] Sodium Chloride 0.9% 500 500 ml 500 ml @ 999 mls/hr IV .Q31M ONE Rx#:[id number] Oral 150 Output: Urine 600 400 40 Other: Voiding Method Indwelling Catheter Indwelling Catheter # Bowel Movements 1 - Exam GENERAL DESCRIPTION: An elderly female lying in bed in no distress RESPIRATORY SYSTEM: Unlabored breathing , decreased breath sounds at bases HEART: S1 S2 regular rate and rhythm , ABDOMEN: Soft , no tenderness EXTREMITIES: No edema feet - Labs CBC & Chem 7: 09/01/22 06:35 09/01/22 06:35 Labs: Abnormal Lab Results - Last 24 Hours (Table) 08/31/22 08/31/22 09/01/22 Range/Units 08:47 14:30 06:35 WBC 41.0 H (3.8-10.6) k/uL RDW 15.6 H (11.5-15.5) % Neutrophils # 29.2 H 39.0 H (1.3-7.7) k/uL Lymphocytes # 0.6 L 0.9 L (1.0-4.8) k/uL Sodium (137-145) mmol/L Chloride (98-107) mmol/L Carbon Dioxide (22-30) mmol/L Creatinine (0.52-1.04) mg/dL Calcium (8.4-10.2) mg/dL C. difficile (EIA) Intrp Positive A (Negative) 09/01/22 Range/Units 06:35 WBC (3.8-10.6) k/uL RDW (11.5-15.5) % Neutrophils # (1.3-7.7) k/uL Lymphocytes # (1.0-4.8) k/uL Sodium 136 L (137-145) mmol/L Chloride 114 H (98-107) mmol/L Carbon Dioxide 16 L (22-30) mmol/L Creatinine 1.13 H (0.52-1.04) mg/dL Calcium 6.5 L (8.4-10.2) mg/dL C. difficile (EIA) Intrp (Negative) Microbiology - Last 24 Hours (Table) 08/30/22 22:05 Blood Culture - Preliminary Blood No Growth after 24 hours Assessment and Plan (1) Sepsis Current Visit: Yes Status: Acute Code(s): A41.9 - SEPSIS, UNSPECIFIED ORGANISM SNOMED Code(s): 74545537 (2) C. difficile colitis Current Visit: No Status: Acute Code(s): A04.72 - ENTEROCOLITIS D/T CLOSTRIDIUM DIFFICILE, NOT SPCF RECUR SNOMED Code(s): 368237545 Plan: 1patient presented to hospital with sepsis/septic shock source is likely C. difficile colitis in this patient noticed to be hypotension dehydration diarrhea and apparently the patient was not compliant with her oral vancomycin [facility] the shelter could be the cause for her persistent C. difficile colitis clinically not behaving as pneumonia urine was negative and no evidence of any cellulitis. 2 CT of abdominal pelvis which shows evidence of colitis and stool for C. diff came back positive 3patient to continue with the Dificid we will add IV Flagyl in view of the extensive colitis and monitor clinical course closely Time with Patient: Less than 30
[2022-09-02] MEDS: DEXTROSE 5% IN WATER 1,000 ML with SODIUM BICARB (1 MEQ/ML) 150 ML IV SCH ×2 (01:13→20:28)
[2022-09-02] MEDS: MIDODRINE 5 MG TAB PO SCH ×2 (06:31→12:46)
[2022-09-02] MEDS: metroNIDAZOLE-NS PMX 500 MG in SALINE 1 100ML.BAG IVPB SCH ×3 (06:31→21:23)
[2022-09-02] MEDS: LEVOTHYROXINE 50 MCG TAB PO SCH (06:52)
[2022-09-02] MEDS: LACTOBACILLUS ACIDOPH & BULGAR 1 EACH PACKET PO SCH ×3 (06:52→20:06)
[2022-09-02] MEDS: LEVOTHYROXINE 112 MCG TAB PO SCH (06:52)
[2022-09-02] MEDS: METOPROLOL TARTRATE 12.5 MG TAB PO SCH ×4 (08:15→21:23)
[2022-09-02] MEDS: POTASSIUM CHLORIDE ER 10 MEQ TAB.ER.PRT PO SCH (08:15)
[2022-09-02] MEDS: PANTOPRAZOLE 40 MG/10 ML VIAL IVP SCH (08:15)
[2022-09-02] MEDS: MULTIVITAMINS, THERA 1 EACH TAB PO SCH (08:15)
[2022-09-02] MEDS: FIDAXOMICIN 200 MG TABLET PO SCH ×2 (08:15→20:06)
[2022-09-02] MEDS: APIXABAN 5 MG TAB PO SCH ×2 (08:15→20:05)
[2022-09-02] MEDS: MAG HYDROX/AL HYDROX/SIMETH 30 ML, LIDOCAINE VISCOUS 2% 30 ML, NYSTATIN 100,000 UNIT/ML... PO SCH ×9 (08:16→21:24)
[2022-09-02] MEDS: IPRATROPIUM 0.5 MG/2.5 ML NEBU INHALATION SCH ×4 (08:30→20:26)
[2022-09-02] MEDS: ALBUTEROL NEBULIZED 2.5 MG/3 ML INHALATION SCH ×4 (08:30→20:26)
--- NOTE | 2022-09-02 08:40 | XR ---
EXAMINATION TYPE: XR chest 1V portable DATE OF EXAM: 09/02/2022 COMPARISON: 09/01/2022 HISTORY: Abnormal x-ray TECHNIQUE: Single frontal view of the chest is obtained. FINDINGS: Right-sided central line seen with the tip overlying the right atrium. There is linear andrea nges at the right lung base in the left lower lobe consolidation with small effusion stable. Heart si ze stable with atherosclerotic change aorta. No overt failure. Biapical pleural thickening. IMPRESSION: Stable left lower lobe infiltrate and small
[2022-09-02 08:52] LABS: HGB 14.6 gm/dL (11.4-16.0); Hypochromasia Slight; MCH 30.9 pg (25.0-35.0); MCHC 31.8 g/dL (31.0-37.0); MCV 97.1 fL (80.0-100.0); Mean Platelet Volume 8.3; Platelet Count 198 k/uL (150-450); Poikilocytosis Slight; RBC 4.74 m/uL (3.80-5.40); RDW 15.7 % (11.5-15.5); WBC 42.6 k/uL (3.8-10.6)
[2022-09-02 09:15] LABS: Monocytes # (M) 2.98 k/uL (0-1.0); Neutrophils # (M) 37.91 k/uL (1.3-7.7); Neutrophils % (M) 89 %; Nucleated Red Blood Cells 0 /100 WBC (0-0); Total Cells Counted 100
[2022-09-02] MEDS ORDERED: FUROSEMIDE 10 MG/ML 10 ML VIAL IV STA (09:42)
--- NOTE | 2022-09-02 09:43 | P.PN ---
Subjective Patient is seen in follow-up for acute kidney injury. Morning labs pending. On bicarb drip. On low-dose Levophed. Urine output 10 mL an hour for the last 3 hours. Overnight about 30 mL an hour. Off Cardizem drip. Heart rate stable. Vital signs are stable. On vasopressor support. General: No acute distress. HEENT: Head exam is unremarkable. On nasal cannula. LUNGS: No audible rhonchi or wheezes. HEART: Rate and Rhythm are regular. ABDOMEN: Nontender. EXTREMITITES: 2+ edema. Objective - Vital Signs Vital signs: Vital Signs Temp 97.8 F 09/02/22 08:00 Pulse 70 09/02/22 08:47 Resp 15 09/02/22 08:47 BP 89/63 09/02/22 08:00 Pulse Ox 98 09/02/22 08:00 FiO2 35 08/31/22 01:37 Intake & Output 09/01/22 09/02/22 09/02/22 18:59 06:59 18:59 Intake Total 2116.917 8847 170 Output Total 280 326 20 Balance 1324.583 794 150 Weight 103.464 kg Intake: IV 550 120 20 .9NS KVO 160 120 20 Sodium Chloride 0.9% 1, 390 000 ml @ 130 mls/hr IV . Q7H42M STA Rx#:[id number] Intake, IV Titration 9614.642 0543 150 Amount Dextrose 5% in Water 1, 600 900 150 000 ml @ 75 mls/hr IV . [id number] [facility] with Sodium Bicarb (1 Meq/ml) 150 ml Rx#:[id number] Diltiazem 125 mg In 154.583 Sodium Chloride 0.9% 100 ml @ Per Protocol IV .Q0M [facility] Rx#:[id number] Potassium Chloride 20 meq 200 In Water For Injection 1 100ml.bag @ 50 mls/hr IVPB Q2H [facility] Rx#: [id number] metroNIDAZOLE-NS PMX 500 100 100 mg In Saline 1 100ml.bag @ 100 mls/hr IVPB Q8H [facility] Rx#:[id number] Output: Urine 280 326 20 Other: Voiding Method Indwelling Catheter Indwelling Catheter Indwelling Catheter # Bowel Movements 1 - Labs CBC & Chem 7: 09/02/22 07:30 09/01/22 06:35 Labs: Abnormal Lab Results - Last 24 Hours (Table) 09/02/22 Range/Units 07:30 WBC 42.6 H (3.8-10.6) k/uL RDW 15.7 H (11.5-15.5) % Neutrophils # (Manual) 37.91 H (1.3-7.7) k/uL Monocytes # (Manual) 2.98 H (0-1.0) k/uL Microbiology - Last 24 Hours (Table) 08/30/22 22:05 Blood Culture - Preliminary Blood No Growth after 48 hours Assessment and Plan Plan: assessment: 1. Acute kidney injury secondary to hemodynamic ATN. Also received IV contrast on 08/31/2022. Creatinine 1.13 yesterday. No hydronephrosis noted on CAT scan. 2. Metabolic acidosis secondary to acute kidney injury GI losses, and IV fluids. On bicarb drip. 3. A. fib with RVR status post Cardizem drip. On Lopressor. 4. Acute on chronic systolic CHF with ejection fraction of 40-45%. 5. Volume overload. 6. C. diff colitis. 7. Hypokalemia from poor intake and diuresis. Replaced. Improved. Plan: Decreased rate of bicarb drip to 50 mL an hour. Hep-Lock if acidosis improved. Follow-up morning labs. Repeat Lasix 60 mg IV once today. Maintain midodrine. Wean Levophed. Avoid nephrotoxins. Continue to monitor renal function and urine output.
[2022-09-02 09:58] LABS: Calcium 6.3 mg/dL (8.4-10.2)
--- NOTE | 2022-09-02 10:18 | PN ---
PROGRESS NOTE SUBJECTIVE: . Sapna Dumont remains in atrial fib. Rate is controlled. She has probably Clostridium difficile infection. She is on antibiotics. She is also on a small dose of metoprolol tartrate and Levophed is being weaned off. OBJECTIVE: VITAL SIGNS: Stable. Rate is well controlled. HEART: S1, S2 with irregular rhythm. Short systolic murmur. LUNGS: Revealed improved air entry. ABDOMEN: Unchanged. LOWER EXTREMITIES: Unchanged. PLAN: Continue current medications. The patient is stable to my cardiac standpoint. I will come back and see her as needed. MMODL / IJN: [id number] /
[2022-09-02] MEDS ORDERED: SODIUM BICARB 8.4% 50 ML SYR (1 MEQ/ML) IV STA (12:01)
--- NOTE | 2022-09-02 12:27 | P.PN ---
Subjective Progress Note Date: 09/02/22 This is a 77-year-old female, brought in yesterday by EMS from the [facility], apparently the initial concern was the patient was hypoxic, however the patient presented to the ER, she was not hypoxic but she was hypotensive and confused. Apparently the patient has been treated recently for C. difficile colitis, and the patient has not been compliant with her oral vancomycin. Continues to have episodes of diarrhea and multiple bowel movements. In the ER the patient did not respond to fluid boluses at least 2 L were given, hence they have physician placed a little right subclavian triple- lumen catheter, patient required norepinephrine, and at that point she required admission to the ICU. The patient herself is not a great historian, she seems to be confused. Based on previous admissions, is known to have history of chronic atrial fibrillation, chronic kidney disease, COPD, hypertension, lymphedema, dyslipidemia, and previous GI bleeding. I saw this patient this morning, however I was notified about this patient yesterday upon admission from the ER physician. Patient is requiring norepinephrine at 0.1 mcg/kg/m, she is also on amiodarone at 0.5 mg/m, IV fluids 0.9 normal saline at 1 50 mL per hour. Patient is empirically on cefepime and vancomycin, cultures are pending, C. difficile screening is also pending, patient had 2 loose bowel movements last night, went ahead and restarted the patient back on her oral vancomycin 125 mg every 6 hours. CBC showed significant leukocytosis with WBC count of 51,000. Hemoglobin is 14. Patient has relatively normal basic metabolic profile except for low potassium of 2.9 being corrected as per protocol slightly elevated TSH of 5.59. Relatively normal urinalysis, and the vital screening for influenza AB and COVID-19 is negative. ABG on 4 L showed a pO2 of 119 pCO2 of 29 pH of 7.49 . The patient is seen today 09/01/2022 in follow-up in the intensive care unit. She is currently sitting up in bed. A bit more awake and alert. She is maintaining good O2 saturations in the 90s on 3 L/m per nasal cannula. She remains on normal saline at 130 ML's per hour. Currently on a Cardizem drip at 15 mg per hour. Norepinephrine has been weaned off. She is still having issues with low urine output. She is positive for C. difficile colitis. Currently on Dificid. White count 41.0. Hemoglobin 13.9. Platelets 394. Sodium 136. Potassium 3.8. Chloride 114. Bicarb 16. BUN 14. Creatinine 1.13. Anticoagulated with Eliquis. Chest x-ray continues to show left lower lobe infiltrate on pleural effusion. The patient is seen today 09/02/2022 in follow-up in the intensive care unit. She is awake and alert in no acute distress. Maintaining O2 saturations in the 90s on 2 L/m per nasal cannula. Chest x-ray reveals stable left lower lobe infiltrate. She has D5.45 with 3 A of sodium bicarb running at 75 ML's per hour. She is requiring norepinephrine at 2 mcg/m. She is continuing on Dificid and Flagyl. Blood cultures revealing no growth. White count 42.6. Hemoglobin 14.6. Sodium 135. Potassium 4.0. Bicarb 16. BUN 17. Creatinine 1.27. She has been refusing some medications. Refusing to eat. Objective - Vital Signs Vital signs: Vital Signs Temp 97.8 F 09/02/22 08:00 Pulse 80 09/02/22 12:02 Resp 15 09/02/22 12:02 BP 82/71 09/02/22 11:00 Pulse Ox 97 09/02/22 11:00 FiO2 35 08/31/22 01:37 Intake & Output 09/01/22 09/02/22 09/02/22 18:59 06:59 18:59 Intake Total 3218.111 7092 636.659 Output Total 280 326 40 Balance 1324.583 794 596.659 Weight 103.464 kg Intake: IV 550 120 50 .9NS KVO 160 120 50 Sodium Chloride 0.9% 1, 390 000 ml @ 130 mls/hr IV . Q7H42M STA Rx#:[id number] Intake, IV Titration 8988.106 9696 586.659 Amount Dextrose 5% in Water 1, 600 900 375 000 ml @ 50 mls/hr IV . Q23H [facility] with Sodium Bicarb (1 Meq/ml) 150 ml Rx#:[id number] Diltiazem 125 mg In 154.583 Sodium Chloride 0.9% 100 ml @ Per Protocol IV .Q0M [facility] Rx#:[id number] Norepinephrine 8 mg In 211.659 Sodium Chloride 0.9% 250 ml @ 0.03 MCG/KG/MIN 5. 776 mls/hr IV .Q24H [facility] Rx#:[id number] Potassium Chloride 20 meq 200 In Water For Injection 1 100ml.bag @ 50 mls/hr IVPB Q2H [facility] Rx#: [id number] metroNIDAZOLE-NS PMX 500 100 100 mg In Saline 1 100ml.bag @ 100 mls/hr IVPB Q8H [facility] Rx#:[id number] Output: Urine 280 326 40 Other: Voiding Method Indwelling Catheter Indwelling Catheter Indwelling Catheter # Bowel Movements 1 - Exam GENERAL EXAM: Alert, weak, 77-year-old female, on 3 L nasal cannula, comfortable in no apparent distress. HEAD: Normocephalic. EYES: Normal reaction of pupils, equal size. NOSE: Clear with pink turbinates. THROAT: No erythema or exudates. NECK: No masses, no JVD. CHEST: No chest wall deformity. LUNGS: Equal air entry with no crackles, wheeze, rhonchi or dullness. CVS: S1 and S2 normal with no audible murmur, irregular rhythm. ABDOMEN: No hepatosplenomegaly, normal bowel sounds, no guarding or rigidity. SPINE: No scoliosis or deformity SKIN: Evidence of keratosis of the skin on the lower extremities with lymphedema CENTRAL NERVOUS SYSTEM: No focal deficits, tone is normal in all 4 extremities. EXTREMITIES: There is 1-2+ peripheral edema. Changes of chronic venous stasis. No clubbing, no cyanosis. Peripheral pulses are intact. - Labs CBC & Chem 7: 09/02/22 07:30 09/02/22 07:30 Labs: Abnormal Lab Results - Last 24 Hours (Table) 09/02/22 09/02/22 Range/Units 07:30 07:30 WBC 42.6 H (3.8-10.6) k/uL RDW 15.7 H (11.5-15.5) % Neutrophils # (Manual) 37.91 H (1.3-7.7) k/uL Monocytes # (Manual) 2.98 H (0-1.0) k/uL Sodium 135 L (137-145) mmol/L Chloride 109 H (98-107) mmol/L Carbon Dioxide 16 L (22-30) mmol/L Creatinine 1.27 H (0.52-1.04) mg/dL Calcium 6.3 L* (8.4-10.2) mg/dL Microbiology - Last 24 Hours (Table) 08/30/22 22:05 Blood Culture - Preliminary Blood No Growth after 48 hours Assessment and Plan Assessment: Suspect sepsis and septic shock, possible hypovolemic shock. Received fluid resuscitation and currently on norepinephrine at 2 mcg per minute Positive for C. difficile colitis 08/31/2022. Currently on Dificid and Flagyl Recent C. difficile colitis, with noncompliance. Intolerant to oral vancomycin Leukocytosis secondary to above Atrial fibrillation with a rapid ventricular response, currently off Cardizem drip Acute hypoxemic respiratory failure secondary to suspected left lower lobe pneumonia and small left-sided pleural effusion, possibly parapneumonic, not safe to perform thoracentesis considering the size. Acute kidney injury with chronic kidney disease, acute on chronic kidney disease Acute metabolic acidosis secondary to acute kidney injury. Currently on a bicarb drip History of underlying COPD Dyslipidemia History of GI bleeding history of cellulitis of lower extremities and recently treated at [facility]. Chronic lymphedema. Mild LV dysfunction with ejection fraction of 40-45% Plan: The patient was seen and evaluated Chest x-ray, labs and medications reviewed Requiring norepinephrine again Remains on a bicarb drip Receiving calcium replacement We did speak to the patient about CODE STATUS She wishes to think about it and let us know We will continue to follow I have personally seen and examined the patient, performed the documentation and the assessment and plan as written. Number of minutes spent on the visit: 10.
[2022-09-02] MEDS ORDERED: CALCIUM GLUCONATE IN NACL 2 GM in SALINE 1 100ML.BAG IVPB ONE (12:30)
[2022-09-02] MEDS: SODIUM BICARBONATE TAB 650 MG TAB PO SCH ×2 (12:45→20:05)
[2022-09-02] MEDS ORDERED: fentaNYL (PF) 50 MCG/ML 2 ML AMP IVP STA (16:38)
[2022-09-02] MEDS ORDERED: MIDAZOLAM 2 MG/2 ML VIAL IV STA (16:44)
--- NOTE | 2022-09-02 19:03 | P.PN ---
Subjective Progress Note Date: 09/02/22 Principal diagnosis: Sepsis and C. diff colitis Patient is a 77-year old female with multiple comorbidities including atrial fibrillation COPD hypertension hypothyroidism she was recently admitted in this facility and was treated for C. difficile colitis, apparently the patient was not compliant with her oral vancomycin and now presenting to the hospital with mental status changes sepsis and did have a positive stool for C. diff and received abdominal pelvis did show evidence of colitis. On today's evaluation that is 09/02/2022, the patient remains to be afebrile, the patient is breathing comfortably on 2 L nasal cannula oxygen the patient is requiring low-dose pressor support the patient continued to have loose stool but no blood or mucus in stool, denies any chest pain occasional cough Objective - Vital Signs Vital signs: Vital Signs Temp 97.8 F 09/02/22 08:00 Pulse 70 09/02/22 08:47 Resp 15 09/02/22 08:47 BP 89/63 09/02/22 08:00 Pulse Ox 98 09/02/22 08:00 FiO2 35 08/31/22 01:37 Intake & Output 09/01/22 09/02/22 09/02/22 18:59 06:59 18:59 Intake Total 2962.363 4498 365.421 Output Total 280 326 20 Balance 1324.583 794 345.421 Weight 103.464 kg Intake: IV 550 120 20 .9NS KVO 160 120 20 Sodium Chloride 0.9% 1, 390 000 ml @ 130 mls/hr IV . Q7H42M STA Rx#:[id number] Intake, IV Titration 2003.120 9217 345.421 Amount Dextrose 5% in Water 1, 600 900 150 000 ml @ 75 mls/hr IV . [id number] [facility] with Sodium Bicarb (1 Meq/ml) 150 ml Rx#:[id number] Diltiazem 125 mg In 154.583 Sodium Chloride 0.9% 100 ml @ Per Protocol IV .Q0M [facility] Rx#:[id number] Norepinephrine 8 mg In 195.421 Sodium Chloride 0.9% 250 ml @ 0.03 MCG/KG/MIN 5. 776 mls/hr IV .Q24H [facility] Rx#:[id number] Potassium Chloride 20 meq 200 In Water For Injection 1 100ml.bag @ 50 mls/hr IVPB Q2H [facility] Rx#: [id number] metroNIDAZOLE-NS PMX 500 100 100 mg In Saline 1 100ml.bag @ 100 mls/hr IVPB Q8H [facility] Rx#:[id number] Output: Urine 280 326 20 Other: Voiding Method Indwelling Catheter Indwelling Catheter Indwelling Catheter # Bowel Movements 1 - Exam GENERAL DESCRIPTION: An elderly female lying in bed in no distress RESPIRATORY SYSTEM: Unlabored breathing , decreased breath sounds at bases HEART: S1 S2 regular rate and rhythm , ABDOMEN: Soft , no tenderness EXTREMITIES: No edema feet - Labs CBC & Chem 7: 09/02/22 07:30 09/02/22 07:30 Labs: Abnormal Lab Results - Last 24 Hours (Table) 09/02/22 09/02/22 Range/Units 07:30 07:30 WBC 42.6 H (3.8-10.6) k/uL RDW 15.7 H (11.5-15.5) % Neutrophils # (Manual) 37.91 H (1.3-7.7) k/uL Monocytes # (Manual) 2.98 H (0-1.0) k/uL Sodium 135 L (137-145) mmol/L Chloride 109 H (98-107) mmol/L Carbon Dioxide 16 L (22-30) mmol/L Creatinine 1.27 H (0.52-1.04) mg/dL Calcium 6.3 L* (8.4-10.2) mg/dL Microbiology - Last 24 Hours (Table) 08/30/22 22:05 Blood Culture - Preliminary Blood No Growth after 48 hours Assessment and Plan (1) Sepsis Current Visit: Yes Status: Acute Code(s): A41.9 - SEPSIS, UNSPECIFIED ORGANISM SNOMED Code(s): 53775095 (2) C. difficile colitis Current Visit: No Status: Acute Code(s): A04.72 - ENTEROCOLITIS D/T CLOSTRIDIUM DIFFICILE, NOT SPCF RECUR SNOMED Code(s): 568761382 Plan: 1patient presented to hospital with sepsis/septic shock source is likely C. difficile colitis in this patient noticed to be hypotension dehydration diarrhea and apparently the patient was not compliant with her oral vancomycin at the assisted could be the cause for her persistent C. difficile colitis clinically not behaving as pneumonia urine was negative and no evidence of any cellulitis. 2 CT of abdominal pelvis which shows evidence of colitis and stool for C. diff came back positive 3patient condition remains to be critical, patient to to continue with the Dificid and IV Flagyl , and monitor clinical course closely Time with Patient: Less than 30
[2022-09-02] MEDS: NOREPINEPHRINE 8 MG in SODIUM CHLORIDE 0.9% 250 ML IV SCH ×2 (19:31→21:02)
[2022-09-02] MEDS: FERROUS SULFATE 325 MG TAB PO SCH (20:05)
[2022-09-02] MEDS: CALCIUM CARB-VIT D 500 MG-5 MCG TAB PO SCH (20:05)
[2022-09-03] MEDS ORDERED: SODIUM CHLORIDE 0.9% 500 ML 500 ML IV ONE (00:20)
[2022-09-03 04:43] LABS: Calcium 6.5 mg/dL (8.4-10.2); Potassium 3.6 mmol/L (3.5-5.1)
[2022-09-03 04:59] LABS: HCT 47.1 % (34.0-46.0); HGB 15.3 gm/dL (11.4-16.0); Hypochromasia Slight; MCH 30.9 pg (25.0-35.0); MCHC 32.5 g/dL (31.0-37.0); Mean Platelet Volume 8.6; Platelet Count 209 k/uL (150-450); Poikilocytosis Slight; RBC 4.95 m/uL (3.80-5.40); RDW 15.9 % (11.5-15.5); WBC 31.8 k/uL (3.8-10.6)
[2022-09-03] MEDS ORDERED: POTASSIUM BICARBONATE/CIT AC 20 MEQ TABLET.EFF NG-TUBE SCH (05:00)
[2022-09-03] MEDS: metroNIDAZOLE-NS PMX 500 MG in SALINE 1 100ML.BAG IVPB SCH ×3 (05:11→21:01)
[2022-09-03] MEDS: LEVOTHYROXINE 50 MCG TAB PO SCH (05:12)
[2022-09-03] MEDS: LACTOBACILLUS ACIDOPH & BULGAR 1 EACH PACKET PO SCH ×2 (05:12→20:39)
[2022-09-03] MEDS: LEVOTHYROXINE 112 MCG TAB PO SCH (05:15)
[2022-09-03 05:51] LABS: Band Neutrophils % 1 %; Lymphocytes # (M) 1.59 k/uL (1.0-4.8); Metamyelocytes # (M) 0.32 k/uL (0); Metamyelocytes % 1 %; Monocytes # (M) 0.95 k/uL (0-1.0); Myelocytes # (M) 0.32 k/uL (0); Myelocytes % 1 %; Neutrophils % (M) 90 %; Nucleated Red Blood Cells 0 /100 WBC (0-0); Polychromasia Present; Total Cells Counted 200
[2022-09-03] MEDS: METOPROLOL TARTRATE 12.5 MG TAB PO SCH ×3 (07:47→20:40)
[2022-09-03] MEDS: MIDODRINE 5 MG TAB PO SCH ×3 (07:47→16:23)
[2022-09-03] MEDS: MAG HYDROX/AL HYDROX/SIMETH 30 ML, LIDOCAINE VISCOUS 2% 30 ML, NYSTATIN 100,000 UNIT/ML... PO SCH ×9 (07:48→21:01)
[2022-09-03] MEDS: SODIUM BICARBONATE TAB 650 MG TAB PO SCH ×2 (07:48→20:39)
[2022-09-03] MEDS: MULTIVITAMINS, THERA 1 EACH TAB PO SCH (07:48)
[2022-09-03] MEDS: APIXABAN 5 MG TAB PO SCH ×2 (07:48→20:39)
[2022-09-03] MEDS: FIDAXOMICIN 200 MG TABLET PO SCH ×2 (07:48→20:39)
[2022-09-03] MEDS: POTASSIUM CHLORIDE ER 10 MEQ TAB.ER.PRT PO SCH (07:49)
[2022-09-03] MEDS: PANTOPRAZOLE 40 MG/10 ML VIAL IVP SCH (07:49)
[2022-09-03] MEDS: IPRATROPIUM 0.5 MG/2.5 ML NEBU INHALATION SCH ×4 (08:19→19:32)
[2022-09-03] MEDS: ALBUTEROL NEBULIZED 2.5 MG/3 ML INHALATION SCH ×4 (08:19→19:31)
--- NOTE | 2022-09-03 08:28 | XR ---
EXAMINATION TYPE: XR chest 1V portable DATE OF EXAM: 09/03/2022 COMPARISON: 09/02/2022 HISTORY: Shortness of breath TECHNIQUE: Single frontal view of the chest is obtained. FINDINGS: Right-sided central line seen with the tip overlying the right atrium. There is linear andrea nges at the right lung base in the left lower lobe consolidation with small effusion stable. Heart si ze stable with atherosclerotic change aorta. No overt failure. Biapical pleural thickening. IMPRESSION: 1. Stable left lower lobe infiltrate and small pleural effusion.
--- NOTE | 2022-09-03 10:03 | PN ---
PROGRESS NOTE SUBJECTIVE: This lady has left-sided pneumonia, sepsis. Her blood pressure is low. She is currently on a small dose of Levophed. Atrial fib rate is slightly faster, but I will continue the beta keyon unless Dr. Gonzáles feels we should stop it, then we can switch her to amiodarone. Her renal function is also slightly abnormal. She may be a bit dry. OBJECTIVE: CARDIOVASCULAR: S1, S2 heard normally. Irregular rate and rhythm. Short systolic murmur at left sternal border. LUNGS: Reveal diminished air entry. ABDOMEN: Soft. LOWER EXTREMITIES: Reveal diminished pulses. CENTRAL NERVOUS SYSTEM: No focal deficits. MMODL / IJN: [id number] /
[2022-09-03] MEDS ORDERED: DEXTROSE 5% IN WATER 100 ML with AMIODARONE 150 MG IV ONE (10:30)
[2022-09-03] MEDS ORDERED: AMIODARONE 360 MG in DEXTROSE 5% IN WATER 200 ML IV ONE ×2 (10:40)
--- NOTE | 2022-09-03 11:06 | P.PN ---
Subjective Progress Note Date: 09/03/22 This is a 77-year-old female, brought in yesterday by EMS from the [facility], apparently the initial concern was the patient was hypoxic, however the patient presented to the ER, she was not hypoxic but she was hypotensive and confused. Apparently the patient has been treated recently for C. difficile colitis, and the patient has not been compliant with her oral vancomycin. Continues to have episodes of diarrhea and multiple bowel movements. In the ER the patient did not respond to fluid boluses at least 2 L were given, hence they have physician placed a little right subclavian triple- lumen catheter, patient required norepinephrine, and at that point she required admission to the ICU. The patient herself is not a great historian, she seems to be confused. Based on previous admissions, is known to have history of chronic atrial fibrillation, chronic kidney disease, COPD, hypertension, lymphedema, dyslipidemia, and previous GI bleeding. I saw this patient this morning, however I was notified about this patient yesterday upon admission from the ER physician. Patient is requiring norepinephrine at 0.1 mcg/kg/m, she is also on amiodarone at 0.5 mg/m, IV fluids 0.9 normal saline at 1 50 mL per hour. Patient is empirically on cefepime and vancomycin, cultures are pending, C. difficile screening is also pending, patient had 2 loose bowel movements last night, went ahead and restarted the patient back on her oral vancomycin 125 mg every 6 hours. CBC showed significant leukocytosis with WBC count of 51,000. Hemoglobin is 14. Patient has relatively normal basic metabolic profile except for low potassium of 2.9 being corrected as per protocol slightly elevated TSH of 5.59. Relatively normal urinalysis, and the vital screening for influenza AB and COVID-19 is negative. ABG on 4 L showed a pO2 of 119 pCO2 of 29 pH of 7.49 . The patient is seen today 09/01/2022 in follow-up in the intensive care unit. She is currently sitting up in bed. A bit more awake and alert. She is maintaining good O2 saturations in the 90s on 3 L/m per nasal cannula. She remains on normal saline at 130 ML's per hour. Currently on a Cardizem drip at 15 mg per hour. Norepinephrine has been weaned off. She is still having issues with low urine output. She is positive for C. difficile colitis. Currently on Dificid. White count 41.0. Hemoglobin 13.9. Platelets 394. Sodium 136. Potassium 3.8. Chloride 114. Bicarb 16. BUN 14. Creatinine 1.13. Anticoagulated with Eliquis. Chest x-ray continues to show left lower lobe infiltrate on pleural effusion. The patient is seen today 09/02/2022 in follow-up in the intensive care unit. She is awake and alert in no acute distress. Maintaining O2 saturations in the 90s on 2 L/m per nasal cannula. Chest x-ray reveals stable left lower lobe infiltrate. She has D5.45 with 3 A of sodium bicarb running at 75 ML's per hour. She is requiring norepinephrine at 2 mcg/m. She is continuing on Dificid and Flagyl. Blood cultures revealing no growth. White count 42.6. Hemoglobin 14.6. Sodium 135. Potassium 4.0. Bicarb 16. BUN 17. Creatinine 1.27. She has been refusing some medications. Refusing to eat. The patient is seen today 09/03/2022 in follow-up in the intensive care unit. She is sitting up in bed. Awake and alert in no acute distress. Maintaining O2 saturations in the 90s on room air. She remains on norepinephrine at 2 mcg/m. D5W with 3 A of bicarb at 50 MLS per hour. She is still somewhat weak. Poor appetite. Chest x-ray reveals a stable left lower lobe infiltrate and small effusion. Blood culture revealed no growth. White count 31.8. Hemoglobin 15.3. Platelets 29. Sodium 133. Potassium 3.6. Bicarb 23. BUN 18. Creatinine 1.54. Glucose 103. She remains in atrial fibrillation with rapid ventricular response. She is being initiated on amiodarone per cardiology. Anticoagulated with Eliquis. Continue on Dificid and Flagyl. Objective - Vital Signs Vital signs: Vital Signs Temp 98.1 F 09/03/22 08:00 Pulse 115 H 09/03/22 08:34 Resp 15 09/03/22 08:34 BP 110/86 09/03/22 08:00 Pulse Ox 99 09/03/22 08:23 FiO2 35 08/31/22 01:37 Intake & Output 09/02/22 09/03/22 09/03/22 18:59 06:59 18:59 Intake Total 1327.345 729.223 140.793 Output Total 355 160 10 Balance 972.345 569.223 130.793 Weight 103.464 kg 106.4 kg Intake: IV 130 660 120 .9NS KVO 130 110 20 Dextrose 5% in Water 1, 550 100 000 ml @ 50 mls/hr IV . Q23H [facility] with Sodium Bicarb (1 Meq/ml) 150 ml Rx#:[id number] Intake, IV Titration 1197.345 69.223 20.793 Amount Dextrose 5% in Water 1, 975 000 ml @ 50 mls/hr IV . Q23H [facility] with Sodium Bicarb (1 Meq/ml) 150 ml Rx#:[id number] Norepinephrine 8 mg In 222.345 69.223 20.793 Sodium Chloride 0.9% 250 ml @ 0.03 MCG/KG/MIN 5. 776 mls/hr IV .Q24H [facility] Rx#:[id number] Output: Urine 355 160 10 Other: Voiding Method Indwelling Catheter Indwelling Catheter Indwelling Catheter # Bowel Movements 1 - Exam GENERAL EXAM: Alert, weak, 77-year-old female, on room air, comfortable in no apparent distress. HEAD: Normocephalic. EYES: Normal reaction of pupils, equal size. NOSE: Clear with pink turbinates. THROAT: No erythema or exudates. NECK: No masses, no JVD. CHEST: No chest wall deformity. LUNGS: Equal air entry with crackles in the left lung base. CVS: S1 and S2 normal with no audible murmur, irregular rhythm. ABDOMEN: No hepatosplenomegaly, normal bowel sounds, no guarding or rigidity. SPINE: No scoliosis or deformity SKIN: Evidence of keratosis of the skin on the lower extremities with lymphedema CENTRAL NERVOUS SYSTEM: No focal deficits, tone is normal in all 4 extremities. EXTREMITIES: There is 1-2+ peripheral edema. Changes of chronic venous stasis. No clubbing, no cyanosis. Peripheral pulses are intact. - Labs CBC & Chem 7: 09/03/22 04:12 09/03/22 04:12 Labs: Abnormal Lab Results - Last 24 Hours (Table) 09/02/22 09/03/22 09/03/22 Range/Units 11:45 04:12 04:12 WBC 31.8 H (3.8-10.6) k/uL Hct 47.1 H (34.0-46.0) % RDW 15.9 H (11.5-15.5) % Neutrophils # (Manual) 28.90 H (1.3-7.7) k/uL Metamyelocytes # (Man) 0.32 H (0) k/uL Myelocytes # (Manual) 0.32 H (0) k/uL Sodium 133 L (137-145) mmol/L BUN 18 H (7-17) mg/dL Creatinine 1.54 H (0.52-1.04) mg/dL Glucose 103 H (74-99) mg/dL Calcium 6.5 L (8.4-10.2) mg/dL Procalcitonin 1.16 H (0.02-0.09) ng/mL Microbiology - Last 24 Hours (Table) 08/30/22 22:05 Blood Culture - Preliminary Blood No Growth after 72 hours Assessment and Plan Assessment: Suspect sepsis and septic shock, possible hypovolemic shock. Received fluid resuscitation and currently on norepinephrine at 2 mcg per minute Positive for C. difficile colitis 08/31/2022. Currently on Dificid and Flagyl Recent C. difficile colitis, with noncompliance. Intolerant to oral vancomycin Leukocytosis secondary to above, trending down Atrial fibrillation with a rapid ventricular response, currently off Cardizem drip. Initiated on amiodarone drip today 09/03/2022 Acute hypoxemic respiratory failure secondary to suspected left lower lobe pneumonia and small left-sided pleural effusion, possibly parapneumonic, not safe to perform thoracentesis considering the size. Acute kidney injury with chronic kidney disease, acute on chronic kidney disease Acute metabolic acidosis secondary to acute kidney injury. Currently on a bicarb drip History of underlying COPD Dyslipidemia History of GI bleeding history of cellulitis of lower extremities and recently treated at [facility]. Chronic lymphedema. Mild LV dysfunction with ejection fraction of 40-45% Plan: The patient was seen and evaluated Chest x-ray, labs and medications reviewed Stable and on room air Requiring amiodarone drip for A. fib RVR Remains on a bicarb drip Titrate the norepinephrine as tolerated We will continue to follow I have personally seen and examined the patient, performed the documentation and the assessment and plan as written. Number of minutes spent on the visit: 10.
--- NOTE | 2022-09-03 12:06 | PN ---
PROGRESS NOTE A 77-year-old white female in ICU, who remains in ICU for 2 to 3 days acute hypoxic respiratory distress. She is awake and alert. She is improving. She is saturating 90s on 2 L. Chest x-ray, left lower lobe infiltrate norepinephrine at 2-8 mg/minute. Started on Dificid and Flagyl. Blood cultures, no growth. White count 42.6, hemoglobin 14.6. Sodium 135, potassium 4.0, bicarb 16, BUN 17, creatinine 1.27. Labs reviewed. She is giving appropriate answers on 2 L oxygen. She is active OBJECTIVE: HEART: S1, S2 with irregular rhythm. LUNGS: Decreased breath sounds x4. Sodium 135, potassium 4.0, BUN 17, creatinine is 1.27. White count 42.6. ASSESSMENT: Suspect sepsis, septic shock, hypovolemic shock, currently on norepinephrine. Clostridium difficile colitis, Dificid and Flagyl. Intolerant to vancomycin. Leukocytosis secondary to C diff, atrial fibrillation, RVR, acute hypoxemic respiratory distress, acute kidney injury with chronic kidney disease, metabolic acidosis, COPD, diastolic heart failure, pulmonary hypertension, dyslipidemia. Wean norepinephrine. Continue bicarb. Continue antibiotics. C. diff treatment. Prognosis extremely guarded. Advance diet. ICU. MMODL / IJN: [id number] /
[2022-09-03] MEDS: FUROSEMIDE 10 MG/ML 10 ML VIAL IV SCH ×2 (13:22→20:39)
--- NOTE | 2022-09-03 13:47 | P.PN ---
Subjective Patient is seen in follow-up for acute kidney injury. Renal function worse today. Urine output low. Went into A. fib with RVR last night. Received 500 mL bolus of normal saline for hypotension. Currently on Levophed. Vital signs are stable. On vasopressor support. General: No acute distress. HEENT: Head exam is unremarkable. On nasal cannula. LUNGS: No audible rhonchi or wheezes. HEART: Irregular rate and rhythm. ABDOMEN: Nontender. EXTREMITITES: 2+ edema. Objective - Vital Signs Vital signs: Vital Signs Temp 97.8 F 09/03/22 12:00 Pulse 120 H 09/03/22 12:00 Resp 14 09/03/22 12:00 BP 110/62 09/03/22 12:00 Pulse Ox 93 L 09/03/22 12:00 FiO2 35 08/31/22 01:37 Intake & Output 09/02/22 09/03/22 09/03/22 18:59 06:59 18:59 Intake Total 1327.345 729.223 499.276 Output Total 355 160 25 Balance 972.345 569.223 474.276 Weight 103.464 kg 106.4 kg Intake: IV 130 660 360 .9NS KVO 130 110 60 Dextrose 5% in Water 1, 550 300 000 ml @ 50 mls/hr IV . Q23H [facility] with Sodium Bicarb (1 Meq/ml) 150 ml Rx#:[id number] Intake, IV Titration 1197.345 69.223 139.276 Amount Dextrose 5% in Water 1, 975 000 ml @ 50 mls/hr IV . Q23H [facility] with Sodium Bicarb (1 Meq/ml) 150 ml Rx#:[id number] Norepinephrine 8 mg In 222.345 69.223 39.276 Sodium Chloride 0.9% 250 ml @ 0.03 MCG/KG/MIN 5. 776 mls/hr IV .Q24H [facility] Rx#:[id number] metroNIDAZOLE-NS PMX 500 100 mg In Saline 1 100ml.bag @ 100 mls/hr IVPB Q8H [facility] Rx#:[id number] Output: Urine 355 160 25 Other: Voiding Method Indwelling Catheter Indwelling Catheter Indwelling Catheter # Bowel Movements 1 - Labs CBC & Chem 7: 09/03/22 04:12 09/03/22 04:12 Labs: Abnormal Lab Results - Last 24 Hours (Table) 09/02/22 09/03/22 09/03/22 Range/Units 11:45 04:12 04:12 WBC 31.8 H (3.8-10.6) k/uL Hct 47.1 H (34.0-46.0) % RDW 15.9 H (11.5-15.5) % Neutrophils # (Manual) 28.90 H (1.3-7.7) k/uL Metamyelocytes # (Man) 0.32 H (0) k/uL Myelocytes # (Manual) 0.32 H (0) k/uL Sodium 133 L (137-145) mmol/L BUN 18 H (7-17) mg/dL Creatinine 1.54 H (0.52-1.04) mg/dL Glucose 103 H (74-99) mg/dL Calcium 6.5 L (8.4-10.2) mg/dL Procalcitonin 1.16 H (0.02-0.09) ng/mL Microbiology - Last 24 Hours (Table) 08/30/22 22:05 Blood Culture - Preliminary Blood No Growth after 72 hours Assessment and Plan Plan: assessment: 1. Acute kidney injury secondary to hemodynamic ATN. Also received IV contrast on 08/31/2022. Creatinine 1.54. Oliguric. No hydronephrosis noted on CAT scan. 2. Metabolic acidosis secondary to acute kidney injury GI losses, and IV fluids. On bicarb drip and po bicarb. Improved. 3. A. fib with RVR on amiodarone drip. 4. Acute on chronic systolic CHF with ejection fraction of 40-45%. 5. Volume overload. 6. C. diff colitis. 7. Hypokalemia from poor intake and diuresis. Plan: Hep-Lock IV fluids. Add IV Lasix 60 mg twice daily. Maintain midodrine. Wean Levophed. Avoid nephrotoxins. Continue to monitor renal function and urine output. Potassium replaced. Cortisol level not low.
--- NOTE | 2022-09-03 15:47 | CDI ---
Documentation Clarification Form Date: 09/03/2022 3:43:28 PM From: Adalgisa Carbajal RN, CCDS Admit Date: 08/31/2022 12:52:00 AM Patient Name: Sapna Dumont Visit Number: [id number] Discharge Date: ATTENTION: The Clinical Documentation Specialists (CDI) and [facility] Coding Staff appreciate your assistance in clarifying documentation. Please respond to the clarification below the line at the bottom and electronically sign. The CDI & [facility] Coding staff will review the response and follow-up if needed. Please note: Queries are made part of the Legal Health Record. If you have any questions, please contact the author of this message via ITS. Dr. David Asencio Your patient has an abnormal lab value: creatinine on admission was 0.86. Chronic kidney disease documented. Please clarify if there is an additional diagnosis and/or clinical significance related to this value. 08/31 Cardiology consult: Acute kidney injury with chronic kidney disease History/Risk Factors: Persistent Atrial fibrillation, C. difficile colitis, COPD, Hypertension, Hyperlipidemia Clinical Indicators: 77-year-old female per EMS was hypoxic. She had fever, difficulty breathing and altered mental status. VS 86/73 115 18 given IV fluids and started on pressor. 08/30 Labs WBC 16.0 08/30 BUN 15 Cr 0.86 GFR 67 08/31 BUN 14 Cr 0.89 GFR 64 09/01 BUN 14 Cr 1.13 GFR 48 09/02 BUN 21 Cr 1.27 GFR 41 09/03 BUN 18 Cr 1.54 GFR 33 Treatment: ICU/Telemetry monitoring .9NS 1,000 and 500 ml IV bolus 08/31 .9NS 1,000 IV bolus 08/30 x2. 08/31 x1 Bicard drip @ 75 ml/hr. X2 bags 09/01 Lasix 60 mg IV once, Midodrine 10 mg po ac-tid Levophed Drip per orders (to maintain adequate blood pressure) Avoid nephrotoxins, monitor renal function and urine output. Is there an additional diagnosis and/or clinical significance related to the above lab result/information? [ ] CKD Stage 1 (GFR > 90) [ ] CKD Stage 2 (GFR 60-89) [ ] CKD Stage 3 (GFR 30-59) [ ] CKD Stage 3a (GFR 45-59) [ ] CKD Stage 3b (GFR 30-44) [ ] CKD Stage 4 (GFR 15-29) [[ ] No additional diagnosis/Not clinically significant [ ] Other, please specify [ ] Unable to determine (Template Last Revised: July 2020) ATN MTDD
--- NOTE | 2022-09-03 16:15 | CDI ---
Documentation Clarification Form Date: 09/03/2022 3:49:00 PM From: Adalgisa Carbajal RN, CCDS Admit Date: 08/31/2022 12:52:00 AM Patient Name: Sapna Dumont Visit Number: [id number] Discharge Date: ATTENTION: The Clinical Documentation Specialists (CDI) and [facility] Coding Staff appreciate your assistance in clarifying documentation. Please respond to the clarification below the line at the bottom and electronically sign. The CDI & [facility] Coding staff will review the response and follow-up if needed. Please note: Queries are made part of the Legal Health Record. If you have any questions, please contact the author of this message via ITS. Dr. Dennis Gonzalez Your patient has the documented symptom of Altered Mental Status in the ER assessment and consults assessment and progress notes. Additional clarification regarding the etiology/cause of this symptom is requested. History/Risk Factors: Persistent Atrial fibrillation, C. difficile colitis, COPD, Hypertension, Hyperlipidemia 08/31 Cardiology consult: She presented this hospitalization with altered mental status and decreased blood pressure with tachycardia. She was found to be in A.fib with heart rates 120s and 140s. Clinical Indicators: 77-year-old female per EMS was hypoxic. She had fever, difficulty breathing and altered mental status. She was ruled in for VS 86/73 115 18 given IV fluids and started on pressor. 08/30 Labs WBC 16.0, BUN 15 Cr 0.86, 08/31 Chest X ray: left-sided pleural effusion and atelectasis questionable infiltrate in the left lower lobe. 08/31 CT abdomen/pelvis: wall thickening of most of the large bowel and consistent with some diffuse nonspecific colitis Treatment: ICU/Telemetry monitoring Neuro checks per protocol 9NS 1,000 and 500 ML IV bolus 08/31, .9NS 1,000 IV bolus 08/30 x2. 08/31 x1 Lasix 60 MG IV once, Midodrine 10 MG PO AC-TID x2. 08/31 x1 Bicard drip @ 75 ML/HR. X2 bags 09/01 Levophed Drip per orders (to maintain adequate blood pressure) Vancomycin 1,500 MG IVPB (PTH) 08/31, Flagyl 500 MG IVPB Q 8 HRS08/24-09/03 Please clarify the etiology of the symptom of Altered Mental Status: [ ] Metabolic Encephalopathy due to Sepsis [ ] Other condition (please specify) [ ] Unable to determine (Template Last Revised: July 2020) MTDD
[2022-09-03] MEDS: AMIODARONE 450 MG in DEXTROSE 5% IN WATER 250 ML IV SCH ×2 (18:27)
--- NOTE | 2022-09-03 20:32 | P.PN ---
Subjective Progress Note Date: 09/03/22 Principal diagnosis: Sepsis and C. diff colitis Patient is a 77-year old female with multiple comorbidities including atrial fibrillation COPD hypertension hypothyroidism she was recently admitted in this facility and was treated for C. difficile colitis, apparently the patient was not compliant with her oral vancomycin and now presenting to the hospital with mental status changes sepsis and did have a positive stool for C. diff and received abdominal pelvis did show evidence of colitis. On today's evaluation that is 09/03/2022, the patient continues to be afebrile, the patient is breathing comfortably on 2 L nasal cannula oxygen, the patient is still requiring low-dose pressor support to maintain her blood pressure per the nursing staff, the patient continued 2 loose stool but no blood or mucus in stool, the patient denies any chest pain , did have occasional cough Objective - Vital Signs Vital signs: Vital Signs Temp 97.8 F 09/03/22 12:00 Pulse 120 H 09/03/22 12:00 Resp 14 09/03/22 12:00 BP 110/62 09/03/22 12:00 Pulse Ox 93 L 09/03/22 12:00 FiO2 35 08/31/22 01:37 Intake & Output 09/02/22 09/03/22 09/03/22 18:59 06:59 18:59 Intake Total 1327.345 729.223 499.276 Output Total 355 160 25 Balance 972.345 569.223 474.276 Weight 103.464 kg 106.4 kg Intake: IV 130 660 360 .9NS KVO 130 110 60 Dextrose 5% in Water 1, 550 300 000 ml @ 50 mls/hr IV . Q23H [facility] with Sodium Bicarb (1 Meq/ml) 150 ml Rx#:[id number] Intake, IV Titration 1197.345 69.223 139.276 Amount Dextrose 5% in Water 1, 975 000 ml @ 50 mls/hr IV . Q23H [facility] with Sodium Bicarb (1 Meq/ml) 150 ml Rx#:[id number] Norepinephrine 8 mg In 222.345 69.223 39.276 Sodium Chloride 0.9% 250 ml @ 0.03 MCG/KG/MIN 5. 776 mls/hr IV .Q24H [facility] Rx#:[id number] metroNIDAZOLE-NS PMX 500 100 mg In Saline 1 100ml.bag @ 100 mls/hr IVPB Q8H [facility] Rx#:[id number] Output: Urine 355 160 25 Other: Voiding Method Indwelling Catheter Indwelling Catheter Indwelling Catheter # Bowel Movements 1 - Exam GENERAL DESCRIPTION: An elderly female lying in bed in no distress RESPIRATORY SYSTEM: Unlabored breathing , decreased breath sounds at bases HEART: S1 S2 regular rate and rhythm , ABDOMEN: Soft , no tenderness EXTREMITIES: No edema feet - Labs CBC & Chem 7: 09/03/22 04:12 09/03/22 04:12 Labs: Abnormal Lab Results - Last 24 Hours (Table) 09/02/22 09/03/22 09/03/22 Range/Units 11:45 04:12 04:12 WBC 31.8 H (3.8-10.6) k/uL Hct 47.1 H (34.0-46.0) % RDW 15.9 H (11.5-15.5) % Neutrophils # (Manual) 28.90 H (1.3-7.7) k/uL Metamyelocytes # (Man) 0.32 H (0) k/uL Myelocytes # (Manual) 0.32 H (0) k/uL Sodium 133 L (137-145) mmol/L BUN 18 H (7-17) mg/dL Creatinine 1.54 H (0.52-1.04) mg/dL Glucose 103 H (74-99) mg/dL Calcium 6.5 L (8.4-10.2) mg/dL Procalcitonin 1.16 H (0.02-0.09) ng/mL Microbiology - Last 24 Hours (Table) 08/30/22 22:05 Blood Culture - Preliminary Blood No Growth after 72 hours Assessment and Plan (1) Sepsis Current Visit: Yes Status: Acute Code(s): A41.9 - SEPSIS, UNSPECIFIED ORGANISM SNOMED Code(s): 83434667 (2) C. difficile colitis Current Visit: No Status: Acute Code(s): A04.72 - ENTEROCOLITIS D/T CLOSTRIDIUM DIFFICILE, NOT SPCF RECUR SNOMED Code(s): 205297905 Plan: 1patient presented to hospital with sepsis/septic shock source is likely C. difficile colitis in this patient noticed to be hypotension dehydration diarrhea and apparently the patient was not compliant with her oral vancomycin at the shelter could be the cause for her persistent C. difficile colitis clinically not behaving as pneumonia urine was negative and no evidence of any cellulitis. 2 CT of abdominal pelvis which shows evidence of colitis and stool for C. diff came back positive 3patient condition remains to be critical with minimal clinical improvement white count has been down to 31,000, patient to to continue with the Dificid and IV Flagyl , and monitor clinical course closely Time with Patient: Less than 30
[2022-09-03] MEDS: CALCIUM CARB-VIT D 500 MG-5 MCG TAB PO SCH (20:39)
[2022-09-03] MEDS: FERROUS SULFATE 325 MG TAB PO SCH (20:39)
--- NOTE | 2022-09-03 22:03 | PN ---
PROGRESS NOTE Metabolic encephalopathy secondary to sepsis and severe dehydration. MMODL / IJN: [id number] /
--- NOTE | 2022-09-04 01:48 | PN ---
PROGRESS NOTE SUBJECTIVE: Remains in ICU, white count decreased today down to 32 from 42. She is more alert, starting to feed herself. Creatinine is little bit increased today to 1.6. She is sitting up in bed. She appears in no acute distress. Oxygen desats at night. She wears oxygen at night at home. She has left lower lobe infiltrate, probably aspirated. She has blood cultures that are negative. White count 31.8, hemoglobin 15.3, sodium 133, potassium 3.4, bicarb 23. She has AFib, RVR, anticoagulated with Eliquis and Flagyl appears to be improving. OBJECTIVE: GENERAL: Sitting up in bed, giving appropriate answers. HEART: S1, S2. Irregularly irregular rhythm. LUNGS: Decreased breath sounds. ABDOMEN: Distended, obesity. EXTREMITIES: 2+ edema. LABORATORY DATA: BUN 18, creatinine 1.54, hemoglobin is 15.3, white count as mentioned 31. Sepsis secondary to C diff colitis, possibly pneumonia, left lower lobe infiltrate, atrial fibrillation, RVR, hypoxia, respiratory failure, continue treatment. Metabolic acidosis. Continue current treatments. Treat sepsis, ruled out norepinephrine, fix electrolytes. Continue broad-spectrum antibiotics. Prognosis guarded. MMODL / IJN: [id number] /
[2022-09-04] MEDS: metroNIDAZOLE-NS PMX 500 MG in SALINE 1 100ML.BAG IVPB SCH ×2 (05:40→13:31)
[2022-09-04] MEDS: LEVOTHYROXINE 50 MCG TAB PO SCH (05:40)
[2022-09-04] MEDS: LEVOTHYROXINE 112 MCG TAB PO SCH (05:40)
[2022-09-04] MEDS: LACTOBACILLUS ACIDOPH & BULGAR 1 EACH PACKET PO SCH (05:40)
[2022-09-04 05:58] LABS: HCT 45.2 % (34.0-46.0); HGB 14.1 gm/dL (11.4-16.0); Hypochromasia Slight; MCH 29.7 pg (25.0-35.0); MCHC 31.2 g/dL (31.0-37.0); MCV 95.1 fL (80.0-100.0); Mean Platelet Volume 8.4; Platelet Count 204 k/uL (150-450); RBC 4.75 m/uL (3.80-5.40); RDW 15.6 % (11.5-15.5)
[2022-09-04 06:13] LABS: Potassium 3.5 mmol/L (3.5-5.1)
[2022-09-04 06:25] LABS: Calcium 6.3 mg/dL (8.4-10.2)
[2022-09-04] MEDS ORDERED: CALCIUM GLUCONATE IN NACL 2 GM in SALINE 1 100ML.BAG IVPB ONE (06:49)
[2022-09-04] MEDS: POTASSIUM BICARBONATE/CIT AC 20 MEQ TABLET.EFF NG-TUBE SCH ×2 (06:56→08:21)
[2022-09-04 07:35] LABS: Band Neutrophils % 1 %; Lymphocytes # (M) 2.95 k/uL (1.0-4.8); Monocytes # (M) 1.69 k/uL (0-1.0); Myelocytes # (M) 0.42 k/uL (0); Myelocytes % 2 %; Neutrophils % (M) 76 %; Nucleated Red Blood Cells 1 /100 WBC (0-0); Total Cells Counted 200; WBC 21.1 k/uL (3.8-10.6)
[2022-09-04 07:37] LABS: Polychromasia Present
[2022-09-04] MEDS: IPRATROPIUM 0.5 MG/2.5 ML NEBU INHALATION SCH ×4 (08:01→21:15)
[2022-09-04] MEDS: ALBUTEROL NEBULIZED 2.5 MG/3 ML INHALATION SCH ×4 (08:01→21:15)
[2022-09-04] MEDS: FUROSEMIDE 10 MG/ML 10 ML VIAL IV SCH (08:20)
[2022-09-04] MEDS: APIXABAN 5 MG TAB PO SCH (08:20)
[2022-09-04] MEDS: PANTOPRAZOLE 40 MG/10 ML VIAL IVP SCH (08:20)
[2022-09-04] MEDS: MAG HYDROX/AL HYDROX/SIMETH 30 ML, LIDOCAINE VISCOUS 2% 30 ML, NYSTATIN 100,000 UNIT/ML... PO SCH ×6 (08:20→15:11)
[2022-09-04] MEDS: AMIODARONE 450 MG in DEXTROSE 5% IN WATER 250 ML IV SCH ×2 (08:21)
[2022-09-04] MEDS: SODIUM BICARBONATE TAB 650 MG TAB PO SCH (08:21)
[2022-09-04] MEDS: MULTIVITAMINS, THERA 1 EACH TAB PO SCH (08:21)
[2022-09-04] MEDS: MIDODRINE 5 MG TAB PO SCH ×3 (08:21→13:40)
[2022-09-04] MEDS: FIDAXOMICIN 200 MG TABLET PO SCH (08:21)
[2022-09-04] MEDS: POTASSIUM CHLORIDE ER 10 MEQ TAB.ER.PRT PO SCH (08:24)
[2022-09-04] MEDS: METOPROLOL TARTRATE 12.5 MG TAB PO SCH ×2 (08:24→15:11)
[2022-09-04] MEDS: AMIODARONE 200 MG TAB PO SCH ×2 (11:04→13:52)
[2022-09-04] MEDS: NOREPINEPHRINE 8 MG in SODIUM CHLORIDE 0.9% 250 ML IV SCH (11:04)
[2022-09-04 11:16] LABS: Albumin 1.8 g/dL (3.5-5.0); Ionized Calcium 4.1 mg/dL (4.5-5.3)
--- NOTE | 2022-09-04 12:09 | P.PN ---
Subjective Progress Note Date: 09/04/22 This is a 77-year-old female, brought in yesterday by EMS from the [facility], apparently the initial concern was the patient was hypoxic, however the patient presented to the ER, she was not hypoxic but she was hypotensive and confused. Apparently the patient has been treated recently for C. difficile colitis, and the patient has not been compliant with her oral vancomycin. Continues to have episodes of diarrhea and multiple bowel movements. In the ER the patient did not respond to fluid boluses at least 2 L were given, hence they have physician placed a little right subclavian triple- lumen catheter, patient required norepinephrine, and at that point she required admission to the ICU. The patient herself is not a great historian, she seems to be confused. Based on previous admissions, is known to have history of chronic atrial fibrillation, chronic kidney disease, COPD, hypertension, lymphedema, dyslipidemia, and previous GI bleeding. I saw this patient this morning, however I was notified about this patient yesterday upon admission from the ER physician. Patient is requiring norepinephrine at 0.1 mcg/kg/m, she is also on amiodarone at 0.5 mg/m, IV fluids 0.9 normal saline at 1 50 mL per hour. Patient is empirically on cefepime and vancomycin, cultures are pending, C. difficile screening is also pending, patient had 2 loose bowel movements last night, went ahead and restarted the patient back on her oral vancomycin 125 mg every 6 hours. CBC showed significant leukocytosis with WBC count of 51,000. Hemoglobin is 14. Patient has relatively normal basic metabolic profile except for low potassium of 2.9 being corrected as per protocol slightly elevated TSH of 5.59. Relatively normal urinalysis, and the vital screening for influenza AB and COVID-19 is negative. ABG on 4 L showed a pO2 of 119 pCO2 of 29 pH of 7.49 . The patient is seen today 09/01/2022 in follow-up in the intensive care unit. She is currently sitting up in bed. A bit more awake and alert. She is maintaining good O2 saturations in the 90s on 3 L/m per nasal cannula. She remains on normal saline at 130 ML's per hour. Currently on a Cardizem drip at 15 mg per hour. Norepinephrine has been weaned off. She is still having issues with low urine output. She is positive for C. difficile colitis. Currently on Dificid. White count 41.0. Hemoglobin 13.9. Platelets 394. Sodium 136. Potassium 3.8. Chloride 114. Bicarb 16. BUN 14. Creatinine 1.13. Anticoagulated with Eliquis. Chest x-ray continues to show left lower lobe infiltrate on pleural effusion. The patient is seen today 09/02/2022 in follow-up in the intensive care unit. She is awake and alert in no acute distress. Maintaining O2 saturations in the 90s on 2 L/m per nasal cannula. Chest x-ray reveals stable left lower lobe infiltrate. She has D5.45 with 3 A of sodium bicarb running at 75 ML's per hour. She is requiring norepinephrine at 2 mcg/m. She is continuing on Dificid and Flagyl. Blood cultures revealing no growth. White count 42.6. Hemoglobin 14.6. Sodium 135. Potassium 4.0. Bicarb 16. BUN 17. Creatinine 1.27. She has been refusing some medications. Refusing to eat. The patient is seen today 09/03/2022 in follow-up in the intensive care unit. She is sitting up in bed. Awake and alert in no acute distress. Maintaining O2 saturations in the 90s on room air. She remains on norepinephrine at 2 mcg/m. D5W with 3 A of bicarb at 50 MLS per hour. She is still somewhat weak. Poor appetite. Chest x-ray reveals a stable left lower lobe infiltrate and small effusion. Blood culture revealed no growth. White count 31.8. Hemoglobin 15.3. Platelets 29. Sodium 133. Potassium 3.6. Bicarb 23. BUN 18. Creatinine 1.54. Glucose 103. She remains in atrial fibrillation with rapid ventricular response. She is being initiated on amiodarone per cardiology. Anticoagulated with Eliquis. Continue on Dificid and Flagyl. The patient is seen today 09/04/2022 in follow-up in the intensive care unit. She is currently up in a chair at the bedside. Awake and alert in no acute distress. She is maintaining O2 saturations in the 90s on room air. She has normal saline at KVO. Still requiring some norepinephrine at 5 mcg/m. She is on amiodarone drip at 0.5 mg/m. She is anticoagulated with Eliquis. She remains on Dificid and Flagyl. White count 21. Hemoglobin 14.1. Sodium 132. Potassium 3.5. Bicarb 25. BUN 21. Creatinine 1.60. Calcium 6.3. She con tinues with low urine output. She is admitted drain and diuretics per nephrology. She continues to refuse to eat her meals. Refuses oral medications. States she is not wanting to go on and that she is tired. Objective - Vital Signs Vital signs: Vital Signs Temp 97.7 F 09/04/22 08:00 Pulse 116 H 09/04/22 10:00 Resp 18 09/04/22 10:00 BP 116/78 09/04/22 10:00 Pulse Ox 96 09/04/22 10:00 FiO2 35 08/31/22 01:37 Intake & Output 09/03/22 09/04/22 09/04/22 18:59 06:59 18:59 Intake Total 934.059 194.114 457.930 Output Total 145 255 30 Balance 789.059 -60.886 427.930 Weight 108.3 kg Intake: IV 460 130 40 .9NS KVO 160 130 40 Dextrose 5% in Water 1, 300 000 ml @ 50 mls/hr IV . Q23H [facility] with Sodium Bicarb (1 Meq/ml) 150 ml Rx#:[id number] Intake, IV Titration 474.059 64.114 417.930 Amount Amiodarone 450 mg In 231.671 Dextrose 5% in Water 250 ml @ 0.5 MG/MIN 16.667 mls/hr IV .Q15H [facility] Rx#: [id number] Calcium Gluconate in NaCl 100 2 gm In Saline 1 100ml. bag @ 50 mls/hr IVPB ONCE ONE Rx#:[id number] Norepinephrine 8 mg In 74.059 64.114 86.259 Sodium Chloride 0.9% 250 ml @ 0.03 MCG/KG/MIN 5. 776 mls/hr IV .Q24H [facility] Rx#:[id number] metroNIDAZOLE-NS PMX 500 400 mg In Saline 1 100ml.bag @ 100 mls/hr IVPB Q8H [facility] Rx#:[id number] Output: Urine 145 255 30 Other: Voiding Method Indwelling Catheter Indwelling Catheter Indwelling Catheter - Exam GENERAL EXAM: Alert, weak, 77-year-old female, on room air, up in a chair at the bedside, comfortable in no apparent distress. HEAD: Normocephalic. EYES: Normal reaction of pupils, equal size. NOSE: Clear with pink turbinates. THROAT: No erythema or exudates. NECK: No masses, no JVD. CHEST: No chest wall deformity. LUNGS: Equal air entry with crackles in the left lung base. CVS: S1 and S2 normal with no audible murmur, irregular rhythm. ABDOMEN: No hepatosplenomegaly, normal bowel sounds, no guarding or rigidity. SPINE: No scoliosis or deformity SKIN: Evidence of keratosis of the skin on the lower extremities with lymphedema CENTRAL NERVOUS SYSTEM: No focal deficits, tone is normal in all 4 extremities. EXTREMITIES: There is 1-2+ peripheral edema. Changes of chronic venous stasis. No clubbing, no cyanosis. Peripheral pulses are intact. - Labs CBC & Chem 7: 09/04/22 05:20 09/04/22 05:20 Labs: Abnormal Lab Results - Last 24 Hours (Table) 09/04/22 09/04/22 09/04/22 Range/Units 05:20 05:20 10:43 WBC 21.1 H (3.8-10.6) k/uL RDW 15.6 H (11.5-15.5) % Neutrophils # (Manual) 16.20 H (1.3-7.7) k/uL Monocytes # (Manual) 1.69 H (0-1.0) k/uL Myelocytes # (Manual) 0.42 H (0) k/uL Nucleated RBCs 1 H (0-0) /100 WBC Sodium 132 L (137-145) mmol/L BUN 21 H (7-17) mg/dL Creatinine 1.60 H (0.52-1.04) mg/dL Calcium 6.3 L* (8.4-10.2) mg/dL Ionized Calcium Tim 4.1 L (4.5-5.3) mg/dL Albumin 1.8 L (3.5-5.0) g/dL Microbiology - Last 24 Hours (Table) 08/30/22 22:05 Blood Culture - Preliminary Blood No Growth after 96 hours Assessment and Plan Assessment: Suspect sepsis and septic shock, possible hypovolemic shock. Received fluid resuscitation and currently on norepinephrine at 5 mcg per minute Positive for C. difficile colitis 08/31/2022. Currently on Dificid and Flagyl Recent C. difficile colitis, with noncompliance. Intolerant to oral vancomycin Leukocytosis secondary to above, trending down Atrial fibrillation with a rapid ventricular response, currently off Cardizem drip. Initiated on amiodarone drip today 09/03/2022 Acute hypoxemic respiratory failure secondary to suspected left lower lobe pneumonia and small left-sided pleural effusion, possibly parapneumonic, not safe to perform thoracentesis considering the size. Acute kidney injury with chronic kidney disease, acute on chronic kidney disease Acute metabolic acidosis secondary to acute kidney injury. Currently on a bicarb drip History of underlying COPD Dyslipidemia History of GI bleeding history of cellulitis of lower extremities and recently treated at [facility]. Chronic lymphedema. Mild LV dysfunction with ejection fraction of 40-45% Poor overall functional performance based on the above-mentioned multiple comorbidities Plan: The patient was seen and evaluated Labs and medications reviewed Stable and on room air The patient has been refusing oral medications and refusing meals She has spoken with her [id number] and she is a DO NOT RESUSCITATE DO NOT INTUBATE CODE STATUS She is requesting hospice, consult placed We will continue to follow and make further recommendations based on the patient/family request I have personally seen and examined the patient, performed the documentation and the assessment and plan as written. Number of minutes spent on the visit: 10.
--- NOTE | 2022-09-04 12:13 | P.PN ---
Subjective Patient is seen in follow-up for acute kidney injury. Creatinine fairly stable. Urine output low despite IV Lasix. On amiodarone drip for A. fib. Currently on Levophed. Vital signs are stable. On vasopressor support. General: No acute distress. Quite lethargic. HEENT: Head exam is unremarkable. On nasal cannula. LUNGS: No audible rhonchi or wheezes. HEART: Irregular rate and rhythm. ABDOMEN: Nontender. EXTREMITITES: 2+ edema. Objective - Vital Signs Vital signs: Vital Signs Temp 97.7 F 09/04/22 08:00 Pulse 116 H 09/04/22 10:00 Resp 18 09/04/22 10:00 BP 116/78 09/04/22 10:00 Pulse Ox 96 09/04/22 10:00 FiO2 35 08/31/22 01:37 Intake & Output 09/03/22 09/04/22 09/04/22 18:59 06:59 18:59 Intake Total 934.059 194.114 457.930 Output Total 145 255 30 Balance 789.059 -60.886 427.930 Weight 108.3 kg Intake: IV 460 130 40 .9NS KVO 160 130 40 Dextrose 5% in Water 1, 300 000 ml @ 50 mls/hr IV . Q23H [facility] with Sodium Bicarb (1 Meq/ml) 150 ml Rx#:[id number] Intake, IV Titration 474.059 64.114 417.930 Amount Amiodarone 450 mg In 231.671 Dextrose 5% in Water 250 ml @ 0.5 MG/MIN 16.667 mls/hr IV .Q15H [facility] Rx#: [id number] Calcium Gluconate in NaCl 100 2 gm In Saline 1 100ml. bag @ 50 mls/hr IVPB ONCE ONE Rx#:[id number] Norepinephrine 8 mg In 74.059 64.114 86.259 Sodium Chloride 0.9% 250 ml @ 0.03 MCG/KG/MIN 5. 776 mls/hr IV .Q24H [facility] Rx#:[id number] metroNIDAZOLE-NS PMX 500 400 mg In Saline 1 100ml.bag @ 100 mls/hr IVPB Q8H [facility] Rx#:[id number] Output: Urine 145 255 30 Other: Voiding Method Indwelling Catheter Indwelling Catheter Indwelling Catheter - Labs CBC & Chem 7: 09/04/22 05:20 09/04/22 05:20 Labs: Abnormal Lab Results - Last 24 Hours (Table) 09/04/22 09/04/22 09/04/22 Range/Units 05:20 05:20 10:43 WBC 21.1 H (3.8-10.6) k/uL RDW 15.6 H (11.5-15.5) % Neutrophils # (Manual) 16.20 H (1.3-7.7) k/uL Monocytes # (Manual) 1.69 H (0-1.0) k/uL Myelocytes # (Manual) 0.42 H (0) k/uL Nucleated RBCs 1 H (0-0) /100 WBC Sodium 132 L (137-145) mmol/L BUN 21 H (7-17) mg/dL Creatinine 1.60 H (0.52-1.04) mg/dL Calcium 6.3 L* (8.4-10.2) mg/dL Ionized Calcium Tim 4.1 L (4.5-5.3) mg/dL Albumin 1.8 L (3.5-5.0) g/dL Microbiology - Last 24 Hours (Table) 08/30/22 22:05 Blood Culture - Preliminary Blood No Growth after 96 hours Assessment and Plan Plan: assessment: 1. Acute kidney injury secondary to hemodynamic ATN. Also received IV contrast on 08/31/2022. Creatinine 1.6. Oliguric. No hydronephrosis noted on CAT scan. 2. Metabolic acidosis secondary to acute kidney injury GI losses, and IV fluids. On bicarb drip and po bicarb. Improved. 3. A. fib with RVR on amiodarone drip. 4. Acute on chronic systolic CHF with ejection fraction of 40-45%. 5. Volume overload. 6. C. diff colitis. 7. Hypokalemia from poor intake and diuresis. 8. Hypocalcemia secondary to acute kidney injury. Ionized calcium low. On calcitriol. Status post IV calcium. Plan: Maintain IV Lasix. Maintain midodrine. Wean Levophed. Avoid nephrotoxins. Continue to monitor renal function and urine output. Potassium replaced. Cortisol level not low. Due to oliguria and volume overload, discussed initiating renal replacement therapy. Await approval from family.
--- NOTE | 2022-09-04 14:56 | P.PN ---
Subjective Progress Note Date: 09/04/22 Principal diagnosis: Sepsis and C. diff colitis Patient is a 77-year old female with multiple comorbidities including atrial fibrillation COPD hypertension hypothyroidism she was recently admitted in this facility and was treated for C. difficile colitis, apparently the patient was not compliant with her oral vancomycin and now presenting to the hospital with mental status changes sepsis and did have a positive stool for C. diff and received abdominal pelvis did show evidence of colitis. On today's evaluation that is 09/04/2022, the patient remains to be afebrile, the patient is breathing comfortably on 2 L nasal cannula oxygen, the patient is requiring low-dose pressor support to maintain her blood pressure slightly higher than yesterday per the nursing staff, the patient continued few loose stool but no blood or mucus in stool, the patient denies any chest pain Objective - Vital Signs Vital signs: Vital Signs Temp 97.7 F 09/04/22 12:00 Pulse 98 09/04/22 12:00 Resp 15 09/04/22 12:00 BP 93/70 09/04/22 12:00 Pulse Ox 93 L 09/04/22 12:00 FiO2 35 08/31/22 01:37 Intake & Output 09/03/22 09/04/22 09/04/22 18:59 06:59 18:59 Intake Total 934.059 194.114 477.930 Output Total 145 255 30 Balance 789.059 -60.886 447.930 Weight 108.3 kg Intake: IV 460 130 60 .9NS KVO 160 130 60 Dextrose 5% in Water 1, 300 000 ml @ 50 mls/hr IV . Q23H [facility] with Sodium Bicarb (1 Meq/ml) 150 ml Rx#:[id number] Intake, IV Titration 474.059 64.114 417.930 Amount Amiodarone 450 mg In 231.671 Dextrose 5% in Water 250 ml @ 0.5 MG/MIN 16.667 mls/hr IV .Q15H [facility] Rx#: [id number] Calcium Gluconate in NaCl 100 2 gm In Saline 1 100ml. bag @ 50 mls/hr IVPB ONCE ONE Rx#:[id number] Norepinephrine 8 mg In 74.059 64.114 86.259 Sodium Chloride 0.9% 250 ml @ 0.03 MCG/KG/MIN 5. 776 mls/hr IV .Q24H [facility] Rx#:[id number] metroNIDAZOLE-NS PMX 500 400 mg In Saline 1 100ml.bag @ 100 mls/hr IVPB Q8H [facility] Rx#:[id number] Output: Urine 145 255 30 Other: Voiding Method Indwelling Catheter Indwelling Catheter Indwelling Catheter - Exam GENERAL DESCRIPTION: An elderly female lying in bed in no distress RESPIRATORY SYSTEM: Unlabored breathing , decreased breath sounds at bases HEART: S1 S2 regular rate and rhythm , ABDOMEN: Soft , no tenderness EXTREMITIES: No edema feet - Labs CBC & Chem 7: 09/04/22 05:20 09/04/22 05:20 Labs: Abnormal Lab Results - Last 24 Hours (Table) 09/04/22 09/04/22 09/04/22 Range/Units 05:20 05:20 10:43 WBC 21.1 H (3.8-10.6) k/uL RDW 15.6 H (11.5-15.5) % Neutrophils # (Manual) 16.20 H (1.3-7.7) k/uL Monocytes # (Manual) 1.69 H (0-1.0) k/uL Myelocytes # (Manual) 0.42 H (0) k/uL Nucleated RBCs 1 H (0-0) /100 WBC Sodium 132 L (137-145) mmol/L BUN 21 H (7-17) mg/dL Creatinine 1.60 H (0.52-1.04) mg/dL Calcium 6.3 L* (8.4-10.2) mg/dL Ionized Calcium Tim 4.1 L (4.5-5.3) mg/dL Albumin 1.8 L (3.5-5.0) g/dL Microbiology - Last 24 Hours (Table) 08/30/22 22:05 Blood Culture - Preliminary Blood No Growth after 96 hours Assessment and Plan (1) Sepsis Current Visit: Yes Status: Acute Code(s): A41.9 - SEPSIS, UNSPECIFIED ORGANISM SNOMED Code(s): 63371648 (2) C. difficile colitis Current Visit: No Status: Acute Code(s): A04.72 - ENTEROCOLITIS D/T CLOSTRIDIUM DIFFICILE, NOT SPCF RECUR SNOMED Code(s): 982803829 Plan: 1patient presented to hospital with sepsis/septic shock source is likely C. difficile colitis in this patient noticed to be hypotension dehydration diarrhea and apparently the patient was not compliant with her oral vancomycin at the long term could be the cause for her persistent C. difficile colitis clinically not behaving as pneumonia urine was negative and no evidence of any cellulitis. 2 CT of abdominal pelvis which shows evidence of colitis and stool for C. diff came back positive 3patient condition remains to be critical with minimal clinical improvement white count was down to 21,000 yesterday, no CBC has been obtained today, patient to to continue with the Dificid and IV Flagyl , and monitor clinical course closely, prognosis remains guarded Time with Patient: Less than 30
--- NOTE | 2022-09-04 22:49 | PN ---
PROGRESS NOTE SUBJECTIVE: Ms. Dumont is a lady with pneumonia and persistent atrial fibrillation. Today, she is in atrial fibrillation, but she also has intermittent sinus activity. She is currently on IV amiodarone. I am recommending that once 24 hours are over, we will switch her to oral amiodarone 200 mg b.i.d. She is on a small dose of Levophed. Blood pressure is better than yesterday. She seems more comfortable and seems to be doing better. OBJECTIVE: VITAL SIGNS: Blood pressure is 108/70 on a small dose of Levophed. Heart rate is about 100, seems to be regular at the time of my evaluation. HEART: S1 and S2 heard normally. Short systolic murmur. LUNGS: Reveal diminished air entry. ABDOMEN: Unremarkable. LOWER EXTREMITIES: Unremarkable. PLAN: I am recommending that we will continue current medical regimen. Prognosis remains guarded. MMODL / IJN: [id number] /
[2022-09-05] MEDS: AMIODARONE 200 MG TAB PO SCH ×3 (03:37→20:38)
[2022-09-05] MEDS: MIDODRINE 5 MG TAB PO SCH ×4 (03:37→18:04)
[2022-09-05] MEDS: FERROUS SULFATE 325 MG TAB PO SCH ×2 (03:38→20:38)
[2022-09-05] MEDS: FIDAXOMICIN 200 MG TABLET PO SCH ×3 (03:38→20:37)
[2022-09-05] MEDS: APIXABAN 5 MG TAB PO SCH ×3 (03:38→20:38)
[2022-09-05] MEDS: LACTOBACILLUS ACIDOPH & BULGAR 1 EACH PACKET PO SCH ×3 (03:38→20:37)
[2022-09-05] MEDS: SODIUM BICARBONATE TAB 650 MG TAB PO SCH ×3 (03:38→20:38)
[2022-09-05] MEDS: CALCIUM CARB-VIT D 500 MG-5 MCG TAB PO SCH ×2 (03:38→20:38)
[2022-09-05] MEDS: METOPROLOL TARTRATE 12.5 MG TAB PO SCH ×4 (03:38→22:46)
[2022-09-05] MEDS: MAG HYDROX/AL HYDROX/SIMETH 30 ML, LIDOCAINE VISCOUS 2% 30 ML, NYSTATIN 100,000 UNIT/ML... PO SCH ×12 (03:39→22:46)
[2022-09-05] MEDS: FUROSEMIDE 10 MG/ML 10 ML VIAL IV SCH ×3 (03:39→20:37)
[2022-09-05] MEDS: metroNIDAZOLE-NS PMX 500 MG in SALINE 1 100ML.BAG IVPB SCH ×2 (03:40→06:29)
[2022-09-05] MEDS: LEVOTHYROXINE 50 MCG TAB PO SCH (06:28)
[2022-09-05] MEDS: LEVOTHYROXINE 112 MCG TAB PO SCH (06:28)
[2022-09-05 07:39] LABS: Calcium 6.9 mg/dL (8.4-10.2); Potassium 3.9 mmol/L (3.5-5.1)
[2022-09-05] MEDS: ALBUTEROL NEBULIZED 2.5 MG/3 ML INHALATION SCH (07:54)
[2022-09-05] MEDS: IPRATROPIUM 0.5 MG/2.5 ML NEBU INHALATION SCH (07:55)
[2022-09-05] MEDS: PANTOPRAZOLE 40 MG/10 ML VIAL IVP SCH (08:59)
--- NOTE | 2022-09-05 10:27 | P.PN ---
Subjective Progress Note Date: 09/05/22 This is a 77-year-old female, brought in yesterday by EMS from the [facility], apparently the initial concern was the patient was hypoxic, however the patient presented to the ER, she was not hypoxic but she was hypotensive and confused. Apparently the patient has been treated recently for C. difficile colitis, and the patient has not been compliant with her oral vancomycin. Continues to have episodes of diarrhea and multiple bowel movements. In the ER the patient did not respond to fluid boluses at least 2 L were given, hence they have physician placed a little right subclavian triple- lumen catheter, patient required norepinephrine, and at that point she required admission to the ICU. The patient herself is not a great historian, she seems to be confused. Based on previous admissions, is known to have history of chronic atrial fibrillation, chronic kidney disease, COPD, hypertension, lymphedema, dyslipidemia, and previous GI bleeding. I saw this patient this morning, however I was notified about this patient yesterday upon admission from the ER physician. Patient is requiring norepinephrine at 0.1 mcg/kg/m, she is also on amiodarone at 0.5 mg/m, IV fluids 0.9 normal saline at 1 50 mL per hour. Patient is empirically on cefepime and vancomycin, cultures are pending, C. difficile screening is also pending, patient had 2 loose bowel movements last night, went ahead and restarted the patient back on her oral vancomycin 125 mg every 6 hours. CBC showed significant leukocytosis with WBC count of 51,000. Hemoglobin is 14. Patient has relatively normal basic metabolic profile except for low potassium of 2.9 being corrected as per protocol slightly elevated TSH of 5.59. Relatively normal urinalysis, and the vital screening for influenza AB and COVID-19 is negative. ABG on 4 L showed a pO2 of 119 pCO2 of 29 pH of 7.49 . The patient is seen today 09/01/2022 in follow-up in the intensive care unit. She is currently sitting up in bed. A bit more awake and alert. She is maintaining good O2 saturations in the 90s on 3 L/m per nasal cannula. She remains on normal saline at 130 ML's per hour. Currently on a Cardizem drip at 15 mg per hour. Norepinephrine has been weaned off. She is still having issues with low urine output. She is positive for C. difficile colitis. Currently on Dificid. White count 41.0. Hemoglobin 13.9. Platelets 394. Sodium 136. Potassium 3.8. Chloride 114. Bicarb 16. BUN 14. Creatinine 1.13. Anticoagulated with Eliquis. Chest x-ray continues to show left lower lobe infiltrate on pleural effusion. The patient is seen today 09/02/2022 in follow-up in the intensive care unit. She is awake and alert in no acute distress. Maintaining O2 saturations in the 90s on 2 L/m per nasal cannula. Chest x-ray reveals stable left lower lobe infiltrate. She has D5.45 with 3 A of sodium bicarb running at 75 ML's per hour. She is requiring norepinephrine at 2 mcg/m. She is continuing on Dificid and Flagyl. Blood cultures revealing no growth. White count 42.6. Hemoglobin 14.6. Sodium 135. Potassium 4.0. Bicarb 16. BUN 17. Creatinine 1.27. She has been refusing some medications. Refusing to eat. The patient is seen today 09/03/2022 in follow-up in the intensive care unit. She is sitting up in bed. Awake and alert in no acute distress. Maintaining O2 saturations in the 90s on room air. She remains on norepinephrine at 2 mcg/m. D5W with 3 A of bicarb at 50 MLS per hour. She is still somewhat weak. Poor appetite. Chest x-ray reveals a stable left lower lobe infiltrate and small effusion. Blood culture revealed no growth. White count 31.8. Hemoglobin 15.3. Platelets 29. Sodium 133. Potassium 3.6. Bicarb 23. BUN 18. Creatinine 1.54. Glucose 103. She remains in atrial fibrillation with rapid ventricular response. She is being initiated on amiodarone per cardiology. Anticoagulated with Eliquis. Continue on Dificid and Flagyl. The patient is seen today 09/04/2022 in follow-up in the intensive care unit. She is currently up in a chair at the bedside. Awake and alert in no acute distress. She is maintaining O2 saturations in the 90s on room air. She has normal saline at KVO. Still requiring some norepinephrine at 5 mcg/m. She is on amiodarone drip at 0.5 mg/m. She is anticoagulated with Eliquis. She remains on Dificid and Flagyl. White count 21. Hemoglobin 14.1. Sodium 132. Potassium 3.5. Bicarb 25. BUN 21. Creatinine 1.60. Calcium 6.3. She con tinues with low urine output. She is admitted drain and diuretics per nephrology. She continues to refuse to eat her meals. Refuses oral medications. States she is not wanting to go on and that she is tired. The patient is seen today 09/05/2022 in follow-up in the intensive care unit. She is currently sitting up in bed. Awake and alert in no acute distress. Still declining to eat much food. Still declining most of her medications. She is maintaining O2 saturations in the 90s on room air. She has normal saline at KVO. She is still on norepinephrine at 5 mcg/m. sodium 134. Potassium 3.9. Bicarb 20. BUN 24. Creatinine 1.90. Glucose 59. Objective - Vital Signs Vital signs: Vital Signs Temp 97.4 F L 09/05/22 08:00 Pulse 122 H 09/05/22 09:00 Resp 19 09/05/22 09:00 BP 130/94 09/05/22 09:00 Pulse Ox 93 L 09/05/22 09:00 FiO2 35 08/31/22 01:37 Intake & Output 09/04/22 09/05/22 09/05/22 18:59 06:59 18:59 Intake Total 537.930 470 30 Output Total 130 220 65 Balance 407.930 250 -35 Intake: IV 120 120 30 .9NS KVO 120 120 30 Intake, IV Titration 417.930 Amount Amiodarone 450 mg In 231.671 Dextrose 5% in Water 250 ml @ 0.5 MG/MIN 16.667 mls/hr IV .Q15H [facility] Rx#: [id number] Calcium Gluconate in NaCl 100 2 gm In Saline 1 100ml. bag @ 50 mls/hr IVPB ONCE ONE Rx#:[id number] Norepinephrine 8 mg In 86.259 Sodium Chloride 0.9% 250 ml @ 0.03 MCG/KG/MIN 5. 776 mls/hr IV .Q24H [facility] Rx#:[id number] Oral 350 Output: Urine 130 220 65 Other: Voiding Method Indwelling Catheter Indwelling Catheter # Bowel Movements 1 - Exam GENERAL EXAM: Alert, weak, 77-year-old female, on room air, comfortable in no apparent distress. HEAD: Normocephalic. EYES: Normal reaction of pupils, equal size. NOSE: Clear with pink turbinates. THROAT: No erythema or exudates. NECK: No masses, no JVD. CHEST: No chest wall deformity. LUNGS: Equal air entry with crackles in the left lung base. CVS: S1 and S2 normal with no audible murmur, irregular rhythm. ABDOMEN: No hepatosplenomegaly, normal bowel sounds, no guarding or rigidity. SPINE: No scoliosis or deformity SKIN: Evidence of keratosis of the skin on the lower extremities with lymphedema CENTRAL NERVOUS SYSTEM: No focal deficits, tone is normal in all 4 extremities. EXTREMITIES: There is 1-2+ peripheral edema. Changes of chronic venous stasis. No clubbing, no cyanosis. Peripheral pulses are intact. - Labs CBC & Chem 7: 09/04/22 05:20 09/05/22 06:44 Labs: Abnormal Lab Results - Last 24 Hours (Table) 09/04/22 09/05/22 Range/Units 10:43 06:44 Sodium 134 L (137-145) mmol/L Carbon Dioxide 20 L (22-30) mmol/L BUN 24 H (7-17) mg/dL Creatinine 1.90 H (0.52-1.04) mg/dL Glucose 59 L (74-99) mg/dL Calcium 6.9 L (8.4-10.2) mg/dL Ionized Calcium Tim 4.1 L (4.5-5.3) mg/dL Albumin 1.8 L (3.5-5.0) g/dL Microbiology - Last 24 Hours (Table) 08/30/22 22:05 Blood Culture - Preliminary Blood No Growth after 120 hours Assessment and Plan Assessment: Suspect sepsis and septic shock, possible hypovolemic shock. Received fluid resuscitation and currently on norepinephrine at 5 mcg per minute Positive for C. difficile colitis 08/31/2022. Currently on Dificid and Flagyl Recent C. difficile colitis, with noncompliance. Intolerant to oral vancomycin Leukocytosis secondary to above, trending down Atrial fibrillation with a rapid ventricular response, currently off Cardizem drip. Initiated on amiodarone drip today 09/03/2022 Acute hypoxemic respiratory failure secondary to suspected left lower lobe pneumonia and small left-sided pleural effusion, possibly parapneumonic, not safe to perform thoracentesis considering the size. Acute kidney injury with chronic kidney disease, acute on chronic kidney disease Acute metabolic acidosis secondary to acute kidney injury. Currently on a bicarb drip History of underlying COPD Dyslipidemia History of GI bleeding history of cellulitis of lower extremities and recently treated at [facility]. Chronic lymphedema. Mild LV dysfunction with ejection fraction of 40-45% Poor overall functional performance based on the above-mentioned multiple comorbidities Plan: The patient was seen and evaluated Labs and medications reviewed Discontinue norepinephrine Can be transferred out of the ICU today once stable off norepinephrine We will continue to follow and make further recommendations based on the patient/family request I have personally seen and examined the patient, performed the documentation and the assessment and plan as written. Number of minutes spent on the visit: 10.
[2022-09-05 10:56] VITALS: BMI 39.7
[2022-09-05 11:09] LABS: Anisocytosis Slight; HCT 42.6 % (34.0-46.0); HGB 13.7 gm/dL (11.4-16.0); Hypochromasia Slight; MCH 30.6 pg (25.0-35.0); MCHC 32.2 g/dL (31.0-37.0); MCV 95.2 fL (80.0-100.0); Mean Platelet Volume 9.4; Platelet Count 215 k/uL (150-450); RBC 4.48 m/uL (3.80-5.40); WBC 15.9 k/uL (3.8-10.6)
--- NOTE | 2022-09-05 11:19 | PN ---
PROGRESS NOTE SUBJECTIVE: Ms. Dumont is in atrial fibrillation. She has a pneumonia, sepsis, atrial fib, on amiodarone and overall prognosis seems to be somewhat poor. Apparently, the patient is in discussions regarding comfort care. Cardiac-botello, the patient remains unstable, still on a small dose of Levophed and also amiodarone and Eliquis. OBJECTIVE: VITAL SIGNS: Pressure of about 98/60, pulse rate in the 110s, atrial fib. NECK: JVD 1 cm. No carotid bruit. HEART: S1, S2 with irregular rhythm, short systolic murmur. LUNGS: Reveal diminished air entry. ABDOMEN: Unchanged. EXTREMITIES: Lower extremity exam is unchanged. Prognosis remains guarded. We will see her as needed. MMODL / IJN: [id number] /
--- NOTE | 2022-09-05 11:26 | P.PN ---
Subjective Patient is seen in follow-up for acute kidney injury. Renal function worse today. Urine output low despite IV Lasix. Currently making 20-25 mL an hour of urine. Off vasopressors. Oral intake poor. Vital signs are stable. General: No acute distress. Quite lethargic. HEENT: Head exam is unremarkable. On nasal cannula. LUNGS: No audible rhonchi or wheezes. HEART: Irregular rate and rhythm. ABDOMEN: Nontender. EXTREMITITES: 2+ edema. Objective - Vital Signs Vital signs: Vital Signs Temp 97.4 F L 09/05/22 08:00 Pulse 116 H 09/05/22 10:30 Resp 17 09/05/22 10:30 BP 91/66 09/05/22 10:30 Pulse Ox 93 L 09/05/22 10:30 FiO2 35 08/31/22 01:37 Intake & Output 09/04/22 09/05/22 09/05/22 18:59 06:59 18:59 Intake Total 537.930 470 50 Output Total 130 220 105 Balance 407.930 250 -55 Weight 108.3 kg Intake: IV 120 120 50 .9NS KVO 120 120 50 Intake, IV Titration 417.930 Amount Amiodarone 450 mg In 231.671 Dextrose 5% in Water 250 ml @ 0.5 MG/MIN 16.667 mls/hr IV .Q15H [facility] Rx#: [id number] Calcium Gluconate in NaCl 100 2 gm In Saline 1 100ml. bag @ 50 mls/hr IVPB ONCE ONE Rx#:[id number] Norepinephrine 8 mg In 86.259 Sodium Chloride 0.9% 250 ml @ 0.03 MCG/KG/MIN 5. 776 mls/hr IV .Q24H [facility] Rx#:[id number] Oral 350 Output: Urine 130 220 105 Other: Voiding Method Indwelling Catheter Indwelling Catheter Indwelling Catheter # Bowel Movements 1 - Labs CBC & Chem 7: 09/05/22 09:11 09/05/22 06:44 Labs: Abnormal Lab Results - Last 24 Hours (Table) 09/04/22 09/05/22 09/05/22 Range/Units 10:43 06:44 09:11 WBC 15.9 H (3.8-10.6) k/uL RDW 16.0 H (11.5-15.5) % Sodium 134 L (137-145) mmol/L Carbon Dioxide 20 L (22-30) mmol/L BUN 24 H (7-17) mg/dL Creatinine 1.90 H (0.52-1.04) mg/dL Glucose 59 L (74-99) mg/dL Calcium 6.9 L (8.4-10.2) mg/dL Ionized Calcium Tim 4.1 L (4.5-5.3) mg/dL Microbiology - Last 24 Hours (Table) 08/30/22 22:05 Blood Culture - Preliminary Blood No Growth after 120 hours Assessment and Plan Plan: assessment: 1. Acute kidney injury secondary to hemodynamic ATN. Also received IV contrast on 08/31/2022. Creatinine 1.9. Urine output 20-25 mL an hour. No hydronephrosis noted on CAT scan. 2. Metabolic acidosis secondary to acute kidney injury GI losses, and IV fluids. On by mouth bicarbonate. 3. A. fib with RVR on amiodarone and Lopressor. 4. Acute on chronic systolic CHF with ejection fraction of 40-45%. 5. Volume overload. 6. C. diff colitis. 7. Hypokalemia from poor intake and diuresis. Replaced. Improved. 8. Hypocalcemia secondary to acute kidney injury. Ionized calcium low. On calcitriol. Status post IV calcium. Improved. Plan: Maintain IV Lasix. Maintain midodrine. Avoid nephrotoxins. Continue to monitor renal function and urine output. Cortisol level not low. Due to oliguria and volume overload, discussed initiating renal replacement therapy. Await approval from family. Family meeting today to discuss hospice this afternoon.
[2022-09-05] MEDS: POTASSIUM CHLORIDE ER 10 MEQ TAB.ER.PRT PO SCH (11:47)
[2022-09-05] MEDS: MULTIVITAMINS, THERA 1 EACH TAB PO SCH (11:47)
[2022-09-05] MEDS: HYDROcodone/APAP 5-325MG 1 EACH TAB PO PRN (12:59)
[2022-09-05 13:07] LABS: Anisocytosis (M) Present; Band Neutrophils % 7 %; Lymphocytes # (M) 1.43 k/uL (1.0-4.8); Metamyelocytes # (M) 0.48 k/uL (0); Metamyelocytes % 3 %; Monocytes # (M) 1.27 k/uL (0-1.0); Myelocytes # (M) 0.16 k/uL (0); Myelocytes % 1 %; Neutrophils % (M) 72 %; Nucleated Red Blood Cells 0 /100 WBC (0-0); Polychromasia Present; Target Cells Present; Total Cells Counted 100
--- NOTE | 2022-09-05 15:03 | P.PN ---
Subjective Progress Note Date: 09/05/22 Principal diagnosis: Sepsis and C. diff colitis Patient is a 77-year old female with multiple comorbidities including atrial fibrillation COPD hypertension hypothyroidism she was recently admitted in this facility and was treated for C. difficile colitis, apparently the patient was not compliant with her oral vancomycin and now presenting to the hospital with mental status changes sepsis and did have a positive stool for C. diff and received abdominal pelvis did show evidence of colitis. On today's evaluation that is 09/05/2022, the patient continues to be afebrile, the patient is breathing comfortably on room air, the patient is more awake and alert In the chair she is currently off the pressor support per the nursing staff and did have 1 loose stool last night not since morning, Objective - Vital Signs Vital signs: Vital Signs Temp 97.4 F L 09/05/22 08:00 Pulse 116 H 09/05/22 10:30 Resp 17 09/05/22 10:30 BP 91/66 09/05/22 10:30 Pulse Ox 93 L 09/05/22 10:30 FiO2 35 08/31/22 01:37 Intake & Output 09/04/22 09/05/22 09/05/22 18:59 06:59 18:59 Intake Total 537.930 470 50 Output Total 130 220 105 Balance 407.930 250 -55 Weight 108.3 kg Intake: IV 120 120 50 .9NS KVO 120 120 50 Intake, IV Titration 417.930 Amount Amiodarone 450 mg In 231.671 Dextrose 5% in Water 250 ml @ 0.5 MG/MIN 16.667 mls/hr IV .Q15H FIORELLA Rx#: [id number] Calcium Gluconate in NaCl 100 2 gm In Saline 1 100ml. bag @ 50 mls/hr IVPB ONCE ONE Rx#:[id number] Norepinephrine 8 mg In 86.259 Sodium Chloride 0.9% 250 ml @ 0.03 MCG/KG/MIN 5. 776 mls/hr IV .Q24H FIORELLA Rx#:[id number] Oral 350 Output: Urine 130 220 105 Other: Voiding Method Indwelling Catheter Indwelling Catheter Indwelling Catheter # Bowel Movements 1 - Exam GENERAL DESCRIPTION: An elderly female lying in bed in no distress RESPIRATORY SYSTEM: Unlabored breathing , decreased breath sounds at bases HEART: S1 S2 regular rate and rhythm , ABDOMEN: Soft , no tenderness EXTREMITIES: No edema feet - Labs CBC & Chem 7: 09/05/22 09:11 09/05/22 06:44 Labs: Abnormal Lab Results - Last 24 Hours (Table) 09/05/22 09/05/22 Range/Units 06:44 09:11 WBC 15.9 H (3.8-10.6) k/uL RDW 16.0 H (11.5-15.5) % Sodium 134 L (137-145) mmol/L Carbon Dioxide 20 L (22-30) mmol/L BUN 24 H (7-17) mg/dL Creatinine 1.90 H (0.52-1.04) mg/dL Glucose 59 L (74-99) mg/dL Calcium 6.9 L (8.4-10.2) mg/dL Microbiology - Last 24 Hours (Table) 08/30/22 22:05 Blood Culture - Preliminary Blood No Growth after 120 hours Assessment and Plan (1) Sepsis Current Visit: Yes Status: Acute Code(s): A41.9 - SEPSIS, UNSPECIFIED ORGANISM SNOMED Code(s): 48258645 (2) C. difficile colitis Current Visit: No Status: Acute Code(s): A04.72 - ENTEROCOLITIS D/T CLOSTRIDIUM DIFFICILE, NOT SPCF RECUR SNOMED Code(s): 854868672 Plan: 1patient presented to hospital with sepsis/septic shock source is likely C. difficile colitis in this patient noticed to be hypotension dehydration diarrhea and apparently the patient was not compliant with her oral vancomycin at the group home could be the cause for her persistent C. difficile colitis clinically not behaving as pneumonia urine was negative and no evidence of any cellulitis. 2 CT of abdominal pelvis which shows evidence of colitis and stool for C. diff came back positive 3patient seemed had shown some clinical improvement the patient is off pressor support and white count is down to 15,000, patient to to continue with the Dificid and IV Flagyl , and monitor clinical course closely, family the bedside questions were answered Time with Patient: Less than 30
[2022-09-05] MEDS ORDERED: PANTOPRAZOLE 40 MG TABLET PO SCH (17:30)
[2022-09-05 22:31] VITALS: TEMP 97.8
[2022-09-05 23:34] VITALS: BP 115/105; PULSE 128; RESP 14
--- NOTE | 2022-09-06 03:25 | PN ---
PROGRESS NOTE DATE OF SERVICE: 09/04/2022 SUBJECTIVE: Discussed the case with hospice, the patient is stressed due to her severe pain, even though she is much better with the white count down to 20,000 from 40,000. Due to severe pain, she is tired of fighting. She just wants to go in the hospice and even though she appears to be improved from medical standpoint from her acute tubular necrosis, severe dehydration, secondary to C diff colitis. She has low urine output. She is still requiring a little bit of norepinephrine, amiodarone. She is on Eliquis, is on Dificid and Flagyl. Labs are reviewed. 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 OBJECTIVE: GENERAL: She is sitting there and giving appropriate answers, alert and oriented x3. CARDIOVASCULAR: S1, S2. ABDOMEN: Distended. EXTREMITIES: 2+ edema. LUNGS: Clear. White count is mentioned down to 20, BUN is 21, creatinine 1.6. She has sepsis, septic shock, C diff colitis. Leukocytosis, trending much better, atrial fibrillation, RVR, acute hypoxemic respiratory failure, left lower lobe pneumonia, acute kidney injury, chronic kidney disease, metabolic acidosis, dyslipidemia, COPD, lymphedema, history of GI bleed, stable on room air. She wears oxygen at night 2 L. She is DNR, [facility] MMODL / IJN: [id number] /
--- NOTE | 2022-09-06 05:07 | DS ---
DISCHARGE SUMMARY MEDICATIONS: Dificid 200 b.i.d. for 10 days, Protonix 40 b.i.d., sodium bicarb 650 b.i.d., Lopressor 12.5 t.i.d., nystatin 3000 units t.i.d., multivitamin daily, Eliquis 5 mg b.i.d., Zofran 4 mg q.6 hours p.r.n. for vomiting, Synthroid 112 mcg daily, Primatene 10 mg t.i.d., amiodarone 200 b.i.d., DuoNeb q.i.d., calcitriol 0.25 daily, viscous lidocaine daily, Synthroid 50 mcg daily, lactobacillus daily, and Selfridge 5/325 every 8 hours. CONDITION: Stable. PROGNOSIS: Guarded. Ambulate as tolerated. DISCHARGE DIAGNOSES: 1. Sepsis. 2. Atrial fibrillation with rapid ventricular response. 3. Clostridium difficile colitis. 4. Acute tubular necrosis. 5. Severe dehydration. 6. Diastolic heart failure. The patient was admitted to ICU for multiple days due to significant weakness, fatigue, severe dehydration, acute tubular necrosis, and massively rehydrate with IV fluids. The patient slowly improved. Her white count went from 42,000 down to 15.9 on discharge. She will need 2 L [facility], 2 L. Continue current treatments. Follow up with Dr. Gonzalez. Maybe hospice treatment will see [facility] the [facility]. Medications as mentioned above. Prognosis guarded. Due to severe pains, the patient considering hospice due to severe pain, but she is massively improved from when she was admitted. Please see further orders. Follow up with Dr. Dennis Gonzalez. MMODL / MAYRAN: [id number] /
== END 2022-09-06 00:50 | disposition hospice, inpatient (51) | DRG 871 ==
LOC: EC 21:07 → 2SICU 08-31 00:52
PROVIDERS: ADMIT Family Medicine; ATTEND Family Medicine
PROC: 02H633Z Insertion of Infusion Device into Right Atrium, Percutaneous Approach (ICD-10-PCS; principal; 2022-08-31)
PROC: 3E033XZ Introduction of Vasopressor into Peripheral Vein, Percutaneous Approach (ICD-10-PCS; 2022-08-31)
DX: A41.4 Sepsis due to anaerobes (principal); G93.41 Metabolic encephalopathy; J18.9 Pneumonia, unspecified organism; J96.01 Acute respiratory failure with hypoxia; N17.0 Acute kidney failure with tubular necrosis; R65.21 Severe sepsis with septic shock; A04.72 Enterocolitis due to Clostridium difficile, not specified as recurrent; I48.19 Other persistent atrial fibrillation; I47.20 Ventricular tachycardia, unspecified; J44.0 Chronic obstructive pulmonary disease with (acute) lower respiratory infection; E66.2 Morbid (severe) obesity with alveolar hypoventilation; I50.32 Chronic diastolic (congestive) heart failure; I27.20 Pulmonary hypertension, unspecified; E83.51 Hypocalcemia; I11.0 Hypertensive heart disease with heart failure; E11.9 Type 2 diabetes mellitus without complications; Z66 Do not resuscitate; Z51.5 Encounter for palliative care; Z20.822 Contact with and (suspected) exposure to COVID-19; E86.0 Dehydration; I95.1 Orthostatic hypotension; E87.6 Hypokalemia; E89.0 Postprocedural hypothyroidism; E78.5 Hyperlipidemia, unspecified; G25.81 Restless legs syndrome; Z68.39 Body mass index [BMI] 39.0-39.9, adult; M19.90 Unspecified osteoarthritis, unspecified site; I89.0 Lymphedema, not elsewhere classified; I87.8 Other specified disorders of veins; T36.8X6A Underdosing of other systemic antibiotics, initial encounter; Z91.128 Patient's intentional underdosing of medication regimen for other reason; Z79.01 Long term (current) use of anticoagulants; Z79.84 Long term (current) use of oral hypoglycemic drugs; Z79.51 Long term (current) use of inhaled steroids; Z79.890 Hormone replacement therapy; Z79.899 Other long term (current) drug therapy; Z87.891 Personal history of nicotine dependence; Z71.3 Dietary counseling and surveillance; Z88.0 Allergy status to penicillin; Y92.122 Bedroom in nursing home as the place of occurrence of the external cause
CPT/HCPCS: 36415; 36600; 71045; 74177; 76604; 80048; 80053; 81001; 82040; 82330; 82533; 82805; 83605; 83735; 84132; 84145; 84443; 84484; 85025; 85610; 85730; 86850; 86900; 86901; 87040; 87324; 87636; 93005; 94640; 94660; 96365; 96366; 96367; 96368; 96375; 99291; 99292